=== PATIENT | female | born 1965 | race Caucasian/White ===

== ENCOUNTER → 2017-08-28 07:21 | Outpatient (CLI) | payer OTHER, SELFPAY ==
[2017-08-28 10:36] LABS: Vitamin D,25 Hydroxy 35.6 ng/mL (19.95-100.01)
[2017-08-28 10:38] LABS: ALB/GLOB Ratio 1.1 RATIO (0.9-2.4); AST(SGOT) 25 U/L (15-37); Alanine Aminotransfer ALT/SGPT 30 U/L (13-56); Albumin, Serum 3.9 g/dL (3.2-5.0); Alkaline Phosphatase 69 U/L (45-117); Anion Gap 9 (5-15); BUN 23 mg/dL (7-18); BUN/Creat Ratio 26.8 RATIO (10-20); Calcium,Total 8.8 mg/dL (8.5-10.1); Chloride 104 mmol/L (98-107); Cholesterol 209 mg/dL (200); Creatinine, Serum 0.86 mg/dL (0.55-1.02); EST Glomerular Filtration Rate 74 mL/min (>60); Est Glom Filt Rate - Afr Amer 89 mL/min (>60); Globulin 3.7 g/dL (2.2-4.2); Glucose 82 mg/dL (74-106); High Density Lipoprotein 112 mg/dL; Potassium 4.1 mmol/L (3.5-5.1); Protein, Total 7.6 g/dL (6.4-8.2); Sodium Level 139 mmol/L (136-145); Triglycerides 28 mg/dL; Very Low Density Lipoprotein 6 mg/dL (5-40)
== END ==
PROVIDERS: Family Provider Internal Medicine; PCP Internal Medicine; Visit Provider Internal Medicine
DX: E55.9 Vitamin D deficiency, unspecified (principal); Z51.81 Encounter for therapeutic drug level monitoring; Z13.220 Encounter for screening for lipoid disorders
CPT/HCPCS: 36415; 80053; 80061; 82306

== ENCOUNTER → 2017-09-10 12:30 | Outpatient (CLI) | payer OTHER, SELFPAY ==
--- NOTE | 2017-09-10 12:34 | HPBD_ITS ---
STUDY: DUAL ENERGY X-RAY ABSORPTIOMETRY / DXA REASON FOR EXAM: Female, 52 years old. The patient is postmenopausal. No loss of height. TECHNIQUE: Bone Mineral Density (BMD) measurements of lumbar spine and bilateral hips were obtained. COMPARISON: Comparison is made with prior study dated September 29, 2014. FINDINGS: Lumbar Spine (L1-L4): g/cm2 (1.164) / T-score (-0.1) / Z-score (0.5) Findings are suggestive of normal bone density with a low fracture risk. Left Femur Total: g/cm2 (0.978) / T-score (-0.2) / Z-score (0.3) Left Femoral Neck: g/cm2 (0.987) / T-score (-0.4) / Z-score (0.5) Right Femur Total: g/cm2 (1.012) / T-score (0.0) / Z-score (0.6) Right Femoral Neck: g/cm2 (1.014) / T-score (-0.2) / Z-score (0.7) The T-Scores on the most recent prior examination were: Lumbar Spine (L1-L4): There has been worsening of bone density since the previous examination. Left Femur Total: which represents a worsening of 0.5%. Right Femur Total: which represents a worsening of 2.2%. HPBD/Dexa Bone Density Study (HP) IMPRESSION: The patient is considered normal as outlined below according to World Bhanu Organization (WHO) criteria with a low fracture risk. There has been worsening of bone density since the previous examination. Reference Information: The T-score is the number of standard deviations above or below the standard which is normal for young adults at their peak bone mineral density. The World Health Organization (WHO) interprets the T-scores as follows: Above -1 Normal bone density Between -1 and -2.5 Osteopenia Equal to / or below -2.5 Osteoporosis As a practical clinical guideline, osteopenia may be graded as follows: Mild -1 through -1.5 Moderate -1.6 through -2.0 Severe -2.1 through -2.4 The Z-score is the number of standard deviations above or below age-matched controls. A Z-score of less than -1.5 would be considered abnormal. References: 1. NIH Osteoporosis and Related Bone Diseases http://www.osteo.org 2. International Society for Clinical Densitometry http://www.iscd.org 3. National Osteoporosis Foundation http://www.nof.org Electronically Signed: Juan Jose Baker MD at 13:36 EST Tel [phone], Service support ,
== END ==
PROVIDERS: Family Provider Internal Medicine; PCP Internal Medicine; Visit Provider Internal Medicine
DX: Z78.0 Asymptomatic menopausal state (principal)
CPT/HCPCS: 77080

== ENCOUNTER → 2017-11-22 08:56 | Outpatient (CLI) | payer OTHER, SELFPAY ==
--- NOTE | 2017-11-22 08:57 | VDLE_ITS ---
Reason For Study: pain/swelling RIGHT LEFT CFV is compressible, spontaneous, phasic, CFV is compressible, spontaneous, phasic, competent and demonstrates normal competent, and demonstrates normal augmentation. augmentation. FV is compressible, spontaneous, phasic, FV is compressible, spontaneous, phasic, competent and demonstrates normal competent and demonstrates normal augmentation. augmentation. POP V is compressible, spontaneous, phasic, POP V is compressible, spontaneous, phasic, competent and demonstrates normal competent and demonstrates normal augmentation. augmentation. T/P Trunk is compressible. T/P Trunk is compressible. PTV is compressible. PTV is compressible. RT PerV is compressible. LT PerV is compressible. SFJ is competent SFJ is competent. GSV is competent GSV is incompetent throughout with diameter SSV is competent. of .35 x .36 cm. Procedure SSV is competent. Exam performed in department. The exam was diagnostic. Interpretation Summary 1. Bilateral legs no DVt or SVT. 2. Left GSV reflux 3.6mm. Ordering Physician: Venancio Cr Referring Physician: Alanis Lantigua Performed By: Samantha Hogan, RDCS, RVT
== END ==
PROVIDERS: Family Provider Internal Medicine; PCP Internal Medicine; Visit Provider Surgery Vascular Surgery
DX: M79.604 Pain in right leg (principal); M79.605 Pain in left leg; M79.89 Other specified soft tissue disorders
CPT/HCPCS: 93970

== ENCOUNTER → 2017-12-27 15:49 | Outpatient (CLI) | payer OTHER, SELFPAY ==
--- NOTE | 2017-12-27 15:52 | RAD_ITS ---
STUDY: X-RAY - RIGHT HAND, ATTENTION RING FINGER REASON FOR EXAM: Female, 52 years old. Redness and swelling. No known injury. TECHNIQUE: 3 view(s) of the finger were obtained. COMPARISON: None. FINDINGS: Normal metacarpal head. Normal metacarpophalangeal joint. Normal proximal phalanx. Normal middle phalanx. Normal distal phalanx. Normal proximal interphalangeal joint. Normal distal interphalangeal joint. No significant soft tissue swelling. No radiopaque foreign bodies. No erosions. RAD/Finger(s) Min 2 Views IMPRESSION: Normal x-ray examination of the finger. Electronically Signed: Judah Maldonado MD at 8:17 EDT , Service support ,
== END ==
PROVIDERS: Family Provider Internal Medicine; PCP Internal Medicine; Visit Provider Internal Medicine
DX: M79.644 Pain in right finger(s) (principal)
CPT/HCPCS: 73140

== ENCOUNTER → 2018-01-10 08:13 | Outpatient (CLI) | payer OTHER, SELFPAY ==
--- NOTE | 2018-01-10 08:14 | BI_ITS ---
MAMMOGRAPHY - BILATERAL SCREENING REASON FOR EXAM: Female, 52 years old. Routine annual screening examination. PERTINENT HISTORY: Sister with breast cancer. Remote right stereotactic breast biopsy. TECHNIQUE: Digital bilateral breast hayde (3D mammographic acquisition) in the CC and MLO projections. 2-D mediolateral oblique (MLO) and craniocaudad (CC) views of both breasts were obtained. CAD: Full Field Digital Mammography with Computer Added Detection was performed. COMPARISON: Comparison is made with prior study dated November 06, 2016 and November 19, 2013. FINDINGS: Breast Composition: The breasts are extremely dense, which lowers the sensitivity of mammography. There are no dominant masses or suspicious calcifications. A tissue clip marker is once again seen in the axillary region of the right breast No other significant abnormalities are identified. There has been no significant change since the prior study. BI/SCREENING MAMM (CAD), BILAT IMPRESSION: Stable bilateral screening mammogram. Yearly follow-up mammogram recommended. (A) ASSESSMENT CATEGORY: BIRADS Category 2: Benign. A letter regarding these results will be sent to the patient by the facility within 30 days. Approximately 10% of breast cancers are not detected by mammography. A normal mammogram should not delay biopsy of a clinically suspicious abnormality. [id number] Electronically Signed: Juan Jose Baker MD at 10:07 EDT Tel [phone], Service support ,
== END ==
PROVIDERS: Family Provider Internal Medicine; PCP Internal Medicine; Visit Provider Internal Medicine
DX: Z12.31 Encounter for screening mammogram for malignant neoplasm of breast (principal)
CPT/HCPCS: 77063; 77067

== ENCOUNTER → 2018-04-08 08:05 | Outpatient (CLI) | payer OTHER, SELFPAY ==
[2018-04-08 08:36] LABS: Erythrocyte Sedimentation Rate 13 mm/hr (0-30)
[2018-04-08 09:13] LABS: ALB/GLOB Ratio 1.1 RATIO (0.9-2.4); AST(SGOT) 23 U/L (15-37); Alanine Aminotransfer ALT/SGPT 26 U/L (13-56); Albumin, Serum 4.1 g/dL (3.2-5.0); Alkaline Phosphatase 71 U/L (45-117); Anion Gap 10 (5-15); BUN 11 mg/dL (7-18); BUN/Creat Ratio 11.9 RATIO (10-20); CRP < 2.90 mg/L (0.0-3.0); Calcium,Total 9.4 mg/dL (8.5-10.1); Chloride 101 mmol/L (98-107); Cholesterol 211 mg/dL (200); Creatinine, Serum 0.92 mg/dL (0.55-1.02); EST Glomerular Filtration Rate 68 mL/min (>60); Est Glom Filt Rate - Afr Amer 82 mL/min (>60); Globulin 3.8 g/dL (2.2-4.2); Glucose 84 mg/dL (74-106); High Density Lipoprotein 130 mg/dL; Potassium 3.9 mmol/L (3.5-5.1); Protein, Total 7.9 g/dL (6.4-8.2); Sodium Level 140 mmol/L (136-145); Triglycerides 28 mg/dL; Very Low Density Lipoprotein 6 mg/dL (5-40)
== END ==
PROVIDERS: Family Provider Internal Medicine; PCP Internal Medicine; Referring Provider Internal Medicine; Visit Provider Internal Medicine
DX: R89.9 Unspecified abnormal finding in specimens from other organs, systems and tissues (principal)
CPT/HCPCS: 36415; 80053; 80061; 85652; 86140

== ENCOUNTER → 2018-10-30 07:53 | Outpatient (CLI) | payer OTHER, SELFPAY ==
--- NOTE | 2018-10-30 07:55 | US_ITS ---
STUDY: ULTRASOUND OF THE FEMALE PELVIS - COMPLETE REASON FOR EXAM: Female, 53 years old. Abdominal fullness on physical exam TECHNIQUE: Transabdominal and Transvaginal TECHNICAL QUALITY: Adequate. COMPARISON: None. FINDINGS: The uterus is retroverted and is in a midline position. The uterus measures 6.6 x 4.7 x 3.6 cm. There are small nabothian cysts within the cervix. The endometrium measures 2 mm in thickness, and is hyperechoic. There is no demonstrated endometrial mass. There is no demonstrated myometrial mass. No I.U.D. - The right ovary is visualized. The right ovary measures 2.5 x 2.1 x 1.2 cm. There is no right ovarian cyst or ovarian mass. Normal-appearing follicles. No adnexal mass. There is normal arterial and normal venous vascularity. The left ovary is visualized. The left ovary measures 2.8 x 3.1 x 1.9 cm. There is no left ovarian cyst or ovarian mass. Normal appearing follicles. No adnexal mass. There is normal arterial and normal venous vascularity. There is a trace amount of free fluid in the pelvic cul-de-sac. The pre void volume of the bladder was 63 ml. Polycystic ovary disease: No. US/Transvaginal Non- IMPRESSION: No acute pelvic abnormality. Electronically Signed: Montana Clemente MD at 5:02 EDT Tel , Service support ,
== END ==
PROVIDERS: Family Provider Internal Medicine; PCP Internal Medicine; Referring Provider Obstetrics & Gynecology Gynecology; Visit Provider Obstetrics & Gynecology Gynecology
DX: R19.03 Right lower quadrant abdominal swelling, mass and lump (principal)
CPT/HCPCS: 76830

== ENCOUNTER 2018-12-11 13:29 | Outpatient (RCR) | payer SELFPAY ==
--- NOTE | 2019-04-24 08:03 | HP.PT.NRP ---
HP - Discharge Summary (1) - Patient Information GUME AGEE was seen in my office for initial evaluation on . The following Plan of Care was established for this patient: This patient was last seen in our office . Pertinent comments regarding their Physical therapy will appear below: Dry Needling appropriate to d/c. At this point I will be discontinuing this patient from physical therapy. I would be happy to see this patient again in the future if found appropriate by the physician. Thank you! EARNEST CadenaT
== END 2018-12-11 19:00 | disposition home or self-care (01) ==
LOC: PT 13:29
PROVIDERS: Family Provider Internal Medicine; PCP Internal Medicine
DX: R69 Illness, unspecified (principal)

== ENCOUNTER → 2019-01-12 09:59 | Outpatient (CLI) | payer OTHER, SELFPAY ==
--- NOTE | 2019-01-12 10:01 | BI_ITS ---
MAMMOGRAPHY - BILATERAL SCREENING REASON FOR EXAM: Female, 53 years old. Routine annual screening examination. PERTINENT HISTORY: Sister with breast cancer. Remote right stereotactic breast biopsy. TECHNIQUE: Digital bilateral breast leisa (3D mammographic acquisition) in the CC and MLO projections. 2-D mediolateral oblique (MLO) and craniocaudad (CC) views of both breasts were obtained. CAD: Full Field Digital Mammography with Computer Added Detection was performed. COMPARISON: Comparison is made with prior examination dated January 10, 2018 and November 06, 2016. FINDINGS: Breast Composition: The breasts are extremely dense, which lowers the sensitivity of mammography. There are no dominant masses or suspicious calcifications. A tissue clip marker is once again seen in the deep upper lateral aspect of the right breast. No other significant abnormalities are identified. There has been no significant change since the prior study. BI/SCREEN MAMM (CAD) W/LEISA BILAT IMPRESSION: Stable bilateral screening mammogram. Yearly follow-up mammogram recommended. (A) ASSESSMENT CATEGORY: BIRADS Category 2: Benign. A letter regarding these results will be sent to the patient by the facility within 30 days. Approximately 10% of breast cancers are not detected by mammography. A normal mammogram should not delay biopsy of a clinically suspicious abnormality. [id number] Electronically Signed: Juan Jose Baker, at 13:59 EDT , Service support ,
== END ==
PROVIDERS: Family Provider Internal Medicine; PCP Internal Medicine; Referring Provider Internal Medicine; Visit Provider Internal Medicine
DX: Z12.31 Encounter for screening mammogram for malignant neoplasm of breast (principal); Z80.3 Family history of malignant neoplasm of breast
CPT/HCPCS: 77063; 77067

== ENCOUNTER → 2019-02-03 09:52 | Outpatient (CLI) | payer OTHER, SELFPAY ==
[2019-02-03 12:26] LABS: Absolute Lymphocyte Count 1.39 X10^3/uL (0.83-4.51); Absolute Neutrophil Count 2.8 X10^3/uL (2.0-7.7); Basophil# 0.06 X10^3/uL; Basophil% 1.3 % (0-1); Eosinophil# 0.04 X10^3/uL; Eosinophils% 0.9 % (0-5); Hemoglobin 13.6 g/dL (12.0-15.0); Lymphocyte # 1.39 X10^3/ul (4.0); Lymphocyte % 29.8 % (19-41); Mean Corp Hgb Conc 32.4 g/dL (32-36); Mean Corpuscular Hgb 31.2 pg (27.0-32.0); Mean Corpuscular Volume 96.3 fL (81-99); Mean Platelet Vol. 10.9 fl (6.2-12.0); Monocyte# 0.36 X10^3/uL; Monocyte% 7.7 % (0-10); NRBC Flagged by Analyzer 0 % (0-5); Neutrophil % 60.1 % (47-70); Platelet Count 327 K/mm3 (150-450); RBC Distribution Width CV 12.2 % (11.6-14.6); RBC Distribution Width SD 43.7 fl (35.1-43.9); Red Blood Count 4.36 M/mm3 (4.2-5.4); White Blood Count 4.7 K/mm3 (4.4-11.0)
[2019-02-03 12:38] LABS: Erythrocyte Sedimentation Rate 16 mm/hr (0-30)
[2019-02-03 12:45] LABS: BUN 11 mg/dL (7-18); Glucose 78 mg/dL (74-106)
[2019-02-03 12:46] LABS: ALB/GLOB Ratio 1.2 RATIO (0.9-2.4); AST(SGOT) 22 U/L (15-37); Alanine Aminotransfer ALT/SGPT 30 U/L (13-56); Albumin, Serum 4.4 g/dL (3.2-5.0); Alkaline Phosphatase 86 U/L (45-117); Anion Gap 7 (5-15); BUN/Creat Ratio 13.7 RATIO (10-20); CRP < 2.90 mg/L (0.0-3.0); Calcium,Total 9.5 mg/dL (8.5-10.1); Chloride 104 mmol/L (98-107); EST Glomerular Filtration Rate 79 mL/min (>60); Est Glom Filt Rate - Afr Amer 96 mL/min (>60); Globulin 3.8 g/dL (2.2-4.2); Potassium 3.8 mmol/L (3.5-5.1); Protein, Total 8.2 g/dL (6.4-8.2); Rheumatoid Factor < 10.0 IU/mL (<15); Sodium Level 141 mmol/L (136-145)
[2019-02-03 13:30] LABS: Hepatitis B Surface Antibody Non-Reactive; Hepatitis B Surface Antigen Non-Reactive (Nonreactive); Hepatitis C Antibody Non-Reactive (Nonreactive)
[2019-02-05 15:01] LABS: CCP IgG Antibodies 18 units (0-19); Hepatitis B Core AB IgM Negative (Negative)
[2019-02-05 16:07] LABS: CHOLESTEROL TOTAL 236 mg/dL (100-199); HDL-C 125 mg/dL (>39); HDL-P TOTAL 43.2 umol/L (>=30.5); SJOGREN'S Anti-SS-A test < 0.2 AI (0.0-0.9); SJOGREN'S Anti-SS-B test < 0.2 AI (0.0-0.9); SMALL LDL-P <90 nmol/L (<=527); TRIGLYCERIDES 58 mg/dL (0-149); Vitamin D 1,25-Dihydroxy 78.6 pg/mL (19.9-79.3)
[2019-02-06 11:14] LABS: ANTINUCLEAR ANTIBODIES DIRECT Negative (Negative); INSULIN RESISTANCE SCORE <25 (<=45); LDL SIZE 21.3 nm (>20.5); LDL-C 99 mg/dL (0-99); LDL-P 784 nmol/L (<1000)
== END ==
PROVIDERS: Family Provider Internal Medicine; PCP Internal Medicine; Referring Provider Internal Medicine Rheumatology; Visit Provider Internal Medicine Rheumatology
DX: M06.4 Inflammatory polyarthropathy (principal); L70.0 Acne vulgaris; C44.99 Other specified malignant neoplasm of skin, unspecified
CPT/HCPCS: 36415; 80053; 80061; 82652; 83704; 85025; 85652; 86038; 86140; 86200; 86235; 86431; 86705; 86706; 86803; 87340

== ENCOUNTER → 2019-06-17 15:12 | Outpatient (CLI) | payer OTHER, SELFPAY ==
--- NOTE | 2019-06-17 15:24 | RAD_ITS ---
STUDY: X-RAY - UNILATERAL RIBS ( LEFT ) REASON FOR EXAM: Female, 53 years old. Rib pain times several months TECHNIQUE: 2 view(s) of the ribs. COMPARISON: None. FINDINGS: There is a healing nondisplaced fracture of the anterior left eighth rib. The visualized lung is clear and expanded. RAD/Ribs Unil 2V No CXR IMPRESSION: Healing nondisplaced fracture of the anterior left eighth rib. Electronically Signed: Manjit Barcenas MD at 16:14 EST , Service support ,
== END ==
PROVIDERS: Family Provider Internal Medicine; PCP Internal Medicine; Referring Provider Nurse Practitioner; Visit Provider Nurse Practitioner
DX: R07.81 Pleurodynia (principal)
CPT/HCPCS: 71100

== ENCOUNTER → 2019-09-04 15:37 | Outpatient (CLI) | payer OTHER, SELFPAY ==
[2019-03-28 09:24] VITALS: BMI 19.5
[2019-09-04 17:26] LABS: Absolute Lymphocyte Count 1.12 X10^3/uL (0.83-4.51); Absolute Neutrophil Count 5.3 X10^3/uL (2.0-7.7); Basophil# 0.05 X10^3/uL; Basophil% 0.7 % (0-1); Eosinophil# 0.19 X10^3/uL; Eosinophils% 2.6 % (0-5); Hemoglobin 12.9 g/dL (12.0-15.0); Lymphocyte # 1.12 X10^3/ul (4.0); Lymphocyte % 15.6 % (19-41); Mean Corp Hgb Conc 32.3 g/dL (32-36); Mean Corpuscular Hgb 30.9 pg (27.0-32.0); Mean Corpuscular Volume 95.9 fL (81-99); Mean Platelet Vol. 10.2 fl (6.2-12.0); Monocyte# 0.52 X10^3/uL; Monocyte% 7.2 % (0-10); NRBC Flagged by Analyzer 0 % (0-5); Neutrophil # 5.29 X10^3/uL (2.7-7.7); Neutrophil % 73.5 % (47-70); Platelet Count 365 K/mm3 (150-450); RBC Distribution Width CV 12.5 % (11.6-14.6); RBC Distribution Width SD 44.5 fl (35.1-43.9); Red Blood Count 4.17 M/mm3 (4.2-5.4); White Blood Count 7.2 K/mm3 (4.4-11.0)
[2019-09-04 17:44] LABS: ALB/GLOB Ratio 1.2 RATIO (0.9-2.4); AST(SGOT) 34 U/L (15-37); Alanine Aminotransfer ALT/SGPT 38 U/L (13-56); Albumin, Serum 4.3 g/dL (3.2-5.0); Alkaline Phosphatase 101 U/L (45-117); Anion Gap 6 (5-15); BUN 15 mg/dL (7-18); BUN/Creat Ratio 18.1 RATIO (10-20); CRP 5.33 mg/L (0.0-3.0); Calcium,Total 9.6 mg/dL (8.5-10.1); Chloride 102 mmol/L (98-107); Creatinine, Serum 0.83 mg/dL (0.55-1.02); EST Glomerular Filtration Rate 76 mL/min (>60); Est Glom Filt Rate - Afr Amer 93 mL/min (>60); Globulin 3.7 g/dL (2.2-4.2); Glucose 80 mg/dL (74-106); Potassium 3.9 mmol/L (3.5-5.1); Sodium Level 138 mmol/L (136-145)
[2019-09-04 17:59] LABS: Erythrocyte Sedimentation Rate 9 mm/hr (0-30)
== END ==
PROVIDERS: PCP Internal Medicine; Referring Provider Internal Medicine Rheumatology; Visit Provider Internal Medicine Rheumatology
DX: M06.4 Inflammatory polyarthropathy (principal); L70.0 Acne vulgaris; C44.99 Other specified malignant neoplasm of skin, unspecified
CPT/HCPCS: 36415; 80053; 85025; 85652; 86140

== ENCOUNTER → 2019-12-14 09:29 | Outpatient (CLI) | payer OTHER, SELFPAY ==
[2019-03-28 09:24] VITALS: BMI 19.5
--- NOTE | 2019-12-14 09:32 | BI_ITS ---
MAMMOGRAPHY - BILATERAL DIAGNOSTIC REASON FOR EXAM: Female, 54 years old. Six-week history of right upper quadrant breast pain. PERTINENT HISTORY: Sister with breast cancer. Prior right stereotactic breast biopsy. TECHNIQUE: Digital bilateral breast hayde (3D mammographic acquisition) in the CC and MLO projections. 2-D mediolateral oblique (MLO) and craniocaudad (CC) views of both breasts were obtained. CAD: Full Field Digital Mammography with Computer Added Detection was performed. COMPARISON: Comparison is made with prior examination of January 12, 2019 and January 10, 2018. FINDINGS: Breast Composition: The breasts are extremely dense, which lowers the sensitivity of mammography. There are no dominant masses or suspicious calcifications. A tissue clip marker is once again seen within a tiny nodular density in the deep axillary region of the right breast. No other significant abnormalities are identified. There has been no significant change since the prior study. BI/DIAG MAMM W/CAD, BILAT IMPRESSION: Stable bilateral diagnostic mammogram. One year follow-up recommended. (A) ASSESSMENT CATEGORY: BIRADS Category 2: Benign. A letter regarding these results will be sent to the patient by the facility within 30 days. Approximately 10% of breast cancers are not detected by mammography. A normal mammogram should not delay biopsy of a clinically suspicious abnormality. Electronically Signed: Juan Jose Baker, at 10:26 EDT , Service support ,
--- NOTE | 2019-12-14 09:59 | US_ITS ---
STUDY: ULTRASOUND BREAST - RIGHT REASON FOR EXAM: Female, 54 years old. Pain in the right breast. TECHNIQUE: Axial and longitudinal images of the RIGHT breast were performed with a high resolution ultrasound transducer. # OF IMAGES: 27 COMPARISON: Comparison is made with prior mammogram done earlier in the day as well as prior ultrasound of the right breast dated September 24, 2011. FINDINGS: RIGHT Breast: There is a 9 mm x 9 mm x 4 mm well-defined hypoechoic solid nodule at the 10:00 position of the breast in 6 cm from the nipple. This has decreased in size as compared to prior study. US/Breast Limited Unilateral IMPRESSION: 9 mm x 9 mm x 4 mm well-defined hypoechoic solid nodule at the 10:00 position the breast is 6 cm from the nipple. Prior biopsy of this nodule was performed. ASSESSMENT CATEGORY: BIRADS Category 2: Benign. A letter regarding these results will be sent to the patient by the facility within 30 days. Electronically Signed: Juan Jose Baker, at 12:26 EDT , Service support ,
== END ==
PROVIDERS: PCP Internal Medicine; Referring Provider Obstetrics & Gynecology Gynecology; Visit Provider Obstetrics & Gynecology Gynecology
DX: Z12.31 Encounter for screening mammogram for malignant neoplasm of breast (principal); N64.9 Disorder of breast, unspecified; Z80.3 Family history of malignant neoplasm of breast
CPT/HCPCS: 76642; 77062; 77066; G0279

== ENCOUNTER → 2020-02-24 08:16 | Outpatient (CLI) | payer OTHER, SELFPAY ==
[2020-01-30 12:26] VITALS: BMI 19.5
[2020-02-24 10:07] LABS: Absolute Lymphocyte Count 1.21 X10^3/uL (0.83-4.51); Absolute Neutrophil Count 2.8 X10^3/uL (2.0-7.7); Basophil# 0.05 X10^3/uL; Basophil% 1.1 % (0-1); Eosinophil# 0.07 X10^3/uL; Eosinophils% 1.6 % (0-5); Hematocrit 38.6 % (37-47); Hemoglobin 12.4 g/dL (12.0-15.0); Lymphocyte # 1.21 X10^3/ul (4.0); Mean Corp Hgb Conc 32.1 g/dL (32-36); Mean Corpuscular Hgb 31.2 pg (27.0-32.0); Mean Platelet Vol. 9.6 fl (6.2-12.0); Monocyte# 0.36 X10^3/uL; NRBC Flagged by Analyzer 0 % (0-5); Neutrophil # 2.78 X10^3/uL (2.7-7.7); Neutrophil % 62.1 % (47-70); Platelet Count 371 K/mm3 (150-450); RBC Distribution Width CV 12.3 % (11.6-14.6); RBC Distribution Width SD 43.8 fl (35.1-43.9); Red Blood Count 3.98 M/mm3 (4.2-5.4); White Blood Count 4.5 K/mm3 (4.4-11.0)
[2020-02-24 10:36] LABS: Vitamin D,25 Hydroxy 54.8 ng/mL
[2020-02-24 10:44] LABS: ALB/GLOB Ratio 1.2 RATIO (0.9-2.4); AST(SGOT) 29 U/L (15-37); Alanine Aminotransfer ALT/SGPT 35 U/L (13-56); Albumin, Serum 4.1 g/dL (3.2-5.0); Alkaline Phosphatase 75 U/L (45-117); Anion Gap 5 (5-15); BUN 12 mg/dL (7-18); BUN/Creat Ratio 15.7 RATIO (10-20); CRP 3.03 mg/L (0.0-3.0); Calcium,Total 9.4 mg/dL (8.5-10.1); Chloride 104 mmol/L (98-107); Creatinine, Serum 0.76 mg/dL (0.55-1.02); EST Glomerular Filtration Rate 84 mL/min (>60); Est Glom Filt Rate - Afr Amer 101 mL/min (>60); Globulin 3.5 g/dL (2.2-4.2); Glucose 83 mg/dL (74-106); Potassium 3.9 mmol/L (3.5-5.1); Protein, Total 7.6 g/dL (6.4-8.2); Sodium Level 140 mmol/L (136-145)
== END ==
PROVIDERS: PCP Internal Medicine; Referring Provider Internal Medicine Rheumatology; Visit Provider Internal Medicine Rheumatology
DX: M06.4 Inflammatory polyarthropathy (principal); L70.0 Acne vulgaris; C44.99 Other specified malignant neoplasm of skin, unspecified
CPT/HCPCS: 36415; 80053; 82306; 85025; 86140

== ENCOUNTER → 2020-03-16 15:24 | Outpatient (CLI) | payer OTHER, SELFPAY ==
[2020-01-30 12:26] VITALS: BMI 19.5
--- NOTE | 2020-03-16 | FLU_PTH ---
PATIENT: GUME AGEE [facility] U#:[id number] AGE/SX: 59/F ROOM: RE03/16/[address]: Dr. Sofia Cochran MD : 1965 BED: DIS: SPEC #: [id number] RECD: 03/17/20 12:31 STATUS: THALIA SUMIT #: [id number] MARISOL: 03/16/20 00:[address]: Sofia Cochran DEPT: CYTOLOGY RECD BY: Jesus Lopez ENTERED: 03/17/20 12:32 SP TYPE: Fluid OTHR DR: Dr. Alanis Lantigua, Tissues: Urine Procedures: Special Stain Group II Cytospin Fluid HEADER OPERATION: Not noted PRE-OP DIAGNOSIS: Gross hematuria TISSUE SUBMITTED: Urine for cytology DIAGNOSIS CYTOLOGY Urine for cytology (cytospin): Negative for malignant cells. Virtually acellular specimen. AM:helio 03/18/20 CYTOLOGY STUDY Slides are reviewed. CYTOLOGY GROSS Received is 5 ml of light yellow hazy fluid labeled with the patient's name and and designated per the requisition as urine. Submitted for cytology preparation. / helio 03/17/20 TC:5 CPT: 71975
[2020-03-16 15:39] LABS: Cytology, Body Fluid / CSF SEE PATHOLOGY REPORT
== END ==
PROVIDERS: PCP Internal Medicine; Referring Provider Urology; Visit Provider Urology
DX: R31.0 Gross hematuria (principal)
CPT/HCPCS: 88108; 88313

== ENCOUNTER → 2020-03-18 17:43 | Outpatient (CLI) | payer OTHER, SELFPAY ==
[2020-01-30 12:26] VITALS: BMI 19.5
--- NOTE | 2020-03-18 17:47 | CT_ITS ---
STUDY: CT ABDOMEN AND PELVIS WITH AND WITHOUT CONTRAST REASON FOR EXAM: Female, 54 years old. 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 IV 100mL Isovue-370 was administered. Sagittal and coronal images were reconstructed. Individualized dose optimization techniques were used for this CT. COMPARISON: Dec 07 2012 FINDINGS: The visualized lung bases are unremarkable. The visualized portions of the heart are within normal limits. Normal liver. Normal gallbladder and extrahepatic biliary system. Normal spleen. Normal pancreas. Normal bilateral adrenal glands. Normal right kidney. Normal left kidney. Normal visualized stomach. Normal small intestine. Normal colon. The appendix is visualized and appears normal. Normal abdominal aorta. Normal inferior vena cava. Normal retroperitoneum. Normal urinary bladder. There are moderately extensive bilateral pelvic adnexal varices. Normal abdominal wall. Normal osseous structures. CT/CT Abd/Pelvis W/WO Contrast IMPRESSION: 1. Normal urinary system. 2. Pelvic venous varices. Electronically Signed: Tesfaye Porras, at 18:39 EDT Tel , Service support ,
== END ==
PROVIDERS: PCP Internal Medicine; Visit Provider Urology
DX: R31.0 Gross hematuria (principal); R10.9 Unspecified abdominal pain
CPT/HCPCS: 74178; Q9967

== ENCOUNTER 2020-09-30 08:00 | Outpatient (RCR) | payer OTHER, SELFPAY ==
[2020-01-30 12:26] VITALS: BMI 19.5
[2020-09-30] MEDS: COVID-19 VACC, MRNA(PFIZER)/PF 30 MCG/0.3 ML SYRINGE IM (15:22)
[2020-10-21] MEDS: COVID-19 VACC, MRNA(PFIZER)/PF 30 MCG/0.3 ML SYRINGE IM (14:33)
== END 2020-09-30 23:59 ==
LOC: IMMUN 08:00
PROVIDERS: PCP Internal Medicine; Visit Provider Family Medicine
DX: Z23 Encounter for immunization (principal)
CPT/HCPCS: 0001A; 0002A; 91300

== ENCOUNTER → 2020-12-19 12:40 | Outpatient (CLI) | payer OTHER, SELFPAY ==
[2020-01-30 12:26] VITALS: BMI 19.5
--- NOTE | 2020-12-19 12:43 | BI_ITS ---
MAMMOGRAPHY - BILATERAL SCREENING REASON FOR EXAM: Female, 55 years old. Routine annual screening examination. PERTINENT HISTORY: Sister with breast cancer. Prior right stereotactic breast biopsy. TECHNIQUE: Digital bilateral breast leisa (3D mammographic acquisition) in the CC and MLO projections. 2-D mediolateral oblique (MLO) and craniocaudad (CC) views of both breasts were obtained. CAD: Full Field Digital Mammography with Computer Added Detection was performed. COMPARISON: Comparison is made with prior examination dated 01/12/2019 and 12/14/2019 FINDINGS: Breast Composition: The breasts are extremely dense, which lowers the sensitivity of mammography. There are no dominant masses or suspicious calcifications. A tissue clip marker is seen in the upper deep lateral aspect of the right breast. No other significant abnormalities are identified. There has been no significant change since the prior study. BI/SCRN MAMM (CAD)W/LEISA BILAT IMPRESSION: Stable bilateral screening mammogram. Yearly follow-up mammogram recommended. (A) ASSESSMENT CATEGORY: BIRADS Category 2: Benign. A letter regarding these results will be sent to the patient by the facility within 30 days. Approximately 10% of breast cancers are not detected by mammography. A normal mammogram should not delay biopsy of a clinically suspicious abnormality. [id number] Electronically Signed: Juan Jose Baker MD at 13:49 EDT , Service support ,
== END ==
PROVIDERS: PCP Internal Medicine; Referring Provider Obstetrics & Gynecology Gynecology; Visit Provider Obstetrics & Gynecology Gynecology
DX: Z12.31 Encounter for screening mammogram for malignant neoplasm of breast (principal)
CPT/HCPCS: 77063; 77067

== ENCOUNTER → 2021-01-12 11:23 | Outpatient (CLI) | payer OTHER, SELFPAY ==
[2020-01-30 12:26] VITALS: BMI 19.5
--- NOTE | 2021-01-12 11:25 | US_ITS ---
STUDY: ULTRASOUND OF THE FEMALE PELVIS - COMPLETE REASON FOR EXAM: Female, 55 years old. POST MEN BLEEDING LMP: Patient is postmenopausal. TECHNIQUE: Transabdominal and Transvaginal TECHNICAL QUALITY: Adequate. COMPARISON: Comparison is made with prior examination dated 10/30/2018. FINDINGS: The uterus is anteverted and is in a midline position. The uterus measures 7.5 cm x 4 cm x 3.4 cm. There is a Nabothian cyst of the cervix. The endometrium measures 3.1 mm in thickness, and is hyperechoic. There is no demonstrated endometrial mass. The uterus is of heterogeneous echotexture. No focal fibroid is seen. I.U.D. - The patient does not have an I.U.D. The right ovary is visualized. The right ovary measures 2.4 cm x 1.6 cm x 1.3 cm. Small follicles are seen within the ovary. There is no visualized right adnexal mass or complex lesion. There is normal arterial and normal venous vascularity. The left ovary is visualized. The left ovary measures 2 cm x 1.1 cm x 1.4 cm. There is no left ovarian cyst or ovarian mass. There is no visualized left adnexal mass or complex lesion. There is normal arterial and normal venous vascularity. There is minimal fluid in the cul-de-sac. The pre void volume of the bladder was 714 ml. US/Pelvic (Non ) IMPRESSION: Heterogeneous appearance of the uterus although no focal fibroid is seen. Electronically Signed: Juan Jose Baker MD at 15:08 EDT , Service support ,
--- NOTE | 2021-01-12 11:25 | US_ITS ---
STUDY: ULTRASOUND OF THE FEMALE PELVIS - COMPLETE REASON FOR EXAM: Female, 55 years old. POST MEN BLEEDING LMP: Patient is postmenopausal. TECHNIQUE: Transabdominal and Transvaginal TECHNICAL QUALITY: Adequate. COMPARISON: Comparison is made with prior examination dated 10/30/2018. FINDINGS: The uterus is anteverted and is in a midline position. The uterus measures 7.5 cm x 4 cm x 3.4 cm. There is a Nabothian cyst of the cervix. The endometrium measures 3.1 mm in thickness, and is hyperechoic. There is no demonstrated endometrial mass. The uterus is of heterogeneous echotexture. No focal fibroid is seen. I.U.D. - The patient does not have an I.U.D. The right ovary is visualized. The right ovary measures 2.4 cm x 1.6 cm x 1.3 cm. Small follicles are seen within the ovary. There is no visualized right adnexal mass or complex lesion. There is normal arterial and normal venous vascularity. The left ovary is visualized. The left ovary measures 2 cm x 1.1 cm x 1.4 cm. There is no left ovarian cyst or ovarian mass. There is no visualized left adnexal mass or complex lesion. There is normal arterial and normal venous vascularity. There is minimal fluid in the cul-de-sac. The pre void volume of the bladder was 714 ml. US/Transvaginal Non- IMPRESSION: Heterogeneous appearance of the uterus although no focal fibroid is seen. Electronically Signed: Juan Jose Baker MD at 15:08 EDT , Service support ,
--- NOTE | 2021-01-12 11:46 | MRI_ITS ---
STUDY: BILATERAL BREAST MR WITHOUT AND WITH CONTRAST REASON FOR EXAM: Female, 55 years old. Dense breast tissue. History of sister with breast cancer. History of prior right stereotactic breast biopsy. TECHNIQUE: Multi-sequence multi-echo imaging of both breasts was performed with a dedicated breast coil. T1-weighted and T2-weighted images were performed before the administration of contrast. T1-weighted images were also performed after the administration of Dotarem 10ml IV without complications. COMPARISON: 12/19/2020, 12/14/2019. FINDINGS: RIGHT BREAST: The breast tissue is heterogeneously dense with minimal background enhancement. There are no abnormal enhancing masses or areas of non-mass enhancement in the right breast. LEFT BREAST: The breast tissue is heterogeneously dense with minimal background enhancement. There are no abnormal enhancing masses or areas of non-mass enhancement in the left breast. There are no enlarged or abnormal lymph nodes. There is no abnormality in the visualized regions of the chest or liver. MRI/Breast Bilateral W/O and W IMPRESSION: No abnormality on the breast MRI examination with contrast. Annual screening mammogram recommended. CATEGORY: BIRADS Category 1: Negative. A letter regarding these results will be sent to the patient by the facility within 30 days. Electronically Signed: Vishnu Franco MD at 10:10 EDT , Service support ,
== END ==
PROVIDERS: PCP Internal Medicine; Referring Provider Obstetrics & Gynecology Gynecology; Visit Provider Obstetrics & Gynecology Gynecology
DX: Z01.419 Encounter for gynecological examination (general) (routine) without abnormal findings (principal); N95.0 Postmenopausal bleeding; N60.99 Unspecified benign mammary dysplasia of unspecified breast; K92.2 Gastrointestinal hemorrhage, unspecified; Z80.3 Family history of malignant neoplasm of breast
CPT/HCPCS: 76830; 76856; 77049; A9575; A4216; C8908

== ENCOUNTER → 2021-05-03 | Outpatient (CLI) | payer OTHER, SELFPAY | END | disposition home or self-care (01) | LOC: LABSPEC 10:18 | PROVIDERS: PCP Internal Medicine; Referring Provider Physician Assistant; Visit Provider Physician Assistant | DX: Z11.52 Encounter for screening for COVID-19 (principal) | CPT/HCPCS: 87635; U0005; U0003 ==

== ENCOUNTER → 2021-05-24 12:58 | Outpatient (CLI) | payer OTHER, SELFPAY ==
--- NOTE | 2021-05-24 13:01 | RAD_ITS ---
STUDY: X-RAY CHEST REASON FOR EXAM: Female, 55 years old. ABNORMAL LUNG SOUNDS, COUGH TECHNIQUE: Frontal and lateral views COMPARISON: 04/11/2012. FINDINGS: The lungs are clear and expanded. There is no demonstrated pleural abnormality. Normal size heart. Normal mediastinum and roxann. Normal visualized pulmonary arteries. Normal visualized aortic arch and descending thoracic aorta. Normal visualized thoracic spine. Normal visualized ribs, clavicles, and shoulders. There is no demonstrated abnormality of the visualized soft tissue structures of the upper abdomen. RAD/Chest PA and Lateral IMPRESSION: Normal x-ray examination of the chest. Electronically Signed: Narayan Rose DO at 17:16 EST Tel [phone], Service support ,
== END ==
PROVIDERS: PCP Internal Medicine; Referring Provider Internal Medicine; Visit Provider Internal Medicine
DX: R09.89 Other specified symptoms and signs involving the circulatory and respiratory systems (principal)
CPT/HCPCS: 71046

== ENCOUNTER 2021-10-19 06:18 | Outpatient (CLI) | payer OTHER, SELFPAY ==
[2021-10-19 07:05] LABS: Absolute Lymphocyte Count 2.03 X10^3/uL (0.83-4.51); Absolute Neutrophil Count 2.4 X10^3/uL (2.0-7.7); Basophil# 0.07 X10^3/uL; Basophil% 1.3 % (0-1); Eosinophil# 0.28 X10^3/uL; Eosinophils% 5.3 % (0-5); Hematocrit 40.6 % (37-47); Hemoglobin 13.3 g/dL (12.0-15.0); Lymphocyte # 2.03 X10^3/ul (0.83-4.51); Lymphocyte % 38.2 % (19-41); Mean Corp Hgb Conc 32.8 g/dL (32-36); Mean Corpuscular Hgb 30.6 pg (27.0-32.0); Mean Corpuscular Volume 93.5 fL (81-99); Mean Platelet Vol. 9.6 fl (6.2-12.0); Monocyte# 0.57 X10^3/uL; Monocyte% 10.7 % (0-10); NRBC Flagged by Analyzer 0 % (0-5); Neutrophil # 2.35 X10^3/uL (2.7-7.7); Neutrophil % 44.3 % (47-70); Platelet Count 398 K/mm3 (150-450); RBC Distribution Width CV 12.6 % (11.6-14.6); RBC Distribution Width SD 43.5 fl (35.1-43.9); Red Blood Count 4.34 M/mm3 (4.2-5.4); White Blood Count 5.3 K/mm3 (4.4-11.0)
[2021-10-26 08:10] LABS: Immunoglobulin A 210 mg/dL (87-352); Immunoglobulin G 857 mg/dL (586-1602); Immunoglobulin M 87 mg/dL (26-217)
[2021-10-26 08:46] LABS: Immunoglobulin E 17 IU/mL (6-495)
== END 2021-10-19 23:59 | disposition home or self-care (01) ==
LOC: LAB 06:19
PROVIDERS: PCP Internal Medicine; Referring Provider Internal Medicine; Visit Provider Internal Medicine
DX: R05.9 Cough, unspecified (principal)
CPT/HCPCS: 36415; 82784; 82785; 85025

== ENCOUNTER → 2021-11-01 | Outpatient (CLI) | payer OTHER, SELFPAY ==
--- NOTE | 2021-11-01 12:27 | US_ITS ---
STUDY: ULTRASOUND OF THE FEMALE PELVIS - COMPLETE REASON FOR EXAM: Female, 56 years old. PELVIC PAIN-RIGHT- FOR 6-8 WEEKS -- HX OF D and amp;C 95,98 LMP: TECHNIQUE: TECHNICAL QUALITY: Adequate. COMPARISON: None. FINDINGS: The uterus is anteverted and is in a midline position. The uterus measures 6.48 cm. Normal uterine cervix. The endometrium measures 3.5 mm in thickness, and is homogenous.. There is no demonstrated endometrial mass. There is no demonstrated myometrial mass. I.U.D. - The patient does not have an I.U.D. The right ovary is visualized. The right ovary measures 2.36 x 1.37 cm. There is a right ovarian cyst measuring 1.09 cm. There is no visualized right adnexal mass or complex lesion. There is normal arterial and normal venous vascularity. The left ovary is visualized. The left ovary measures 2.02 x 0.85 cm. There is no left ovarian cyst or ovarian mass. There is no visualized left adnexal mass or complex lesion. There is normal arterial and normal venous vascularity. There is no fluid in the cul-de-sac. The pre void volume of the bladder was ml. The post void volume of the bladder was ml. Polycystic ovary disease: No. US/Pelvic (Non ) IMPRESSION: Normal female pelvis. Electronically Signed: Hadley Uribe MD at 1:58 EDT ,
--- NOTE | 2021-11-01 12:28 | US_ITS ---
STUDY: ULTRASOUND OF THE FEMALE PELVIS - COMPLETE REASON FOR EXAM: Female, 56 years old. PELVIC PAIN-RIGHT- FOR 6-8 WEEKS -- HX OF D and amp;C 95,98 LMP: TECHNIQUE: TECHNICAL QUALITY: Adequate. COMPARISON: None. FINDINGS: The uterus is anteverted and is in a midline position. The uterus measures 6.48 cm. Normal uterine cervix. The endometrium measures 3.5 mm in thickness, and is homogenous.. There is no demonstrated endometrial mass. There is no demonstrated myometrial mass. I.U.D. - The patient does not have an I.U.D. The right ovary is visualized. The right ovary measures 2.36 x 1.37 cm. There is a right ovarian cyst measuring 1.09 cm. There is no visualized right adnexal mass or complex lesion. There is normal arterial and normal venous vascularity. The left ovary is visualized. The left ovary measures 2.02 x 0.85 cm. There is no left ovarian cyst or ovarian mass. There is no visualized left adnexal mass or complex lesion. There is normal arterial and normal venous vascularity. There is no fluid in the cul-de-sac. The pre void volume of the bladder was ml. The post void volume of the bladder was ml. Polycystic ovary disease: No. US/Transvaginal Non- IMPRESSION: Normal female pelvis. Electronically Signed: Hadley Uribe MD at 1:58 EDT ,
== END | disposition home or self-care (01) ==
LOC: US 12:25
PROVIDERS: PCP Internal Medicine; Visit Provider Internal Medicine
DX: R10.2 Pelvic and perineal pain (principal)
CPT/HCPCS: 76830; 76856; 93976

== ENCOUNTER → 2021-11-04 | Outpatient (CLI) | payer OTHER, SELFPAY ==
[2021-11-04 08:00] LABS: Mucous, Urine 0 SEEN /hpf (<or=2+); Red Blood Cells-Urine 0 SEEN /hpf (0-5)
[2021-11-04 08:40] LABS: Color, Urine Amber (Yellow); Glucose, Dipstick Normal (Normal); Ketone-Dipstick Negative (Negative); Leukocyte Esterase-Dipstick 100 /ul (Negative); Microalbumin,Random Urine < 5.0 mg/L (NO RANGE EST.); Nitrite-Dipstick Negative (Negative); Occult Blood-Urine Negative /ul (Negative); Protein-Dipstick Negative (Negative); Urine Bilirubin Dipstick Negative (Negative); Urine Clarity Clear (Clear); Urine Urobilinogen Normal (Normal)
[2021-11-04 08:43] LABS: ALB/GLOB Ratio 1.1 RATIO (0.9-2.4); AST(SGOT) 22 U/L (15-37); Alanine Aminotransfer ALT/SGPT 24 U/L (13-56); Albumin, Serum 3.8 g/dL (3.2-5.0); Alkaline Phosphatase 75 U/L (45-117); Anion Gap 5 (5-15); BUN 12 mg/dL (7-18); BUN/Creat Ratio 16.9 RATIO (10-20); Calcium,Total 8.8 mg/dL (8.5-10.1); Chloride 107 mmol/L (98-107); Cholesterol 192 mg/dL (200); Creatinine, Serum 0.71 mg/dL (0.55-1.02); EST Glomerular Filtration Rate 90 mL/min (>60); Est Glom Filt Rate - Afr Amer 109 mL/min (>60); Globulin 3.4 g/dL (2.2-4.2); Glucose 84 mg/dL (74-106); High Density Lipoprotein 116 mg/dL; Protein, Total 7.2 g/dL (6.4-8.2); Sodium Level 140 mmol/L (136-145); Thyroid Stim Hormone (TSH) 1.66 uIU/mL (0.358-3.74); Triglycerides 35 mg/dL; Very Low Density Lipoprotein 7 mg/dL (5-40)
[2021-11-04 08:53] LABS: Bacteria RARE /hpf (None Seen); White Blood Cells 0-5 SEEN /hpf (0-5)
[2021-11-04 08:54] LABS: Squamous Epithelial Cells - UA 0-5 SEEN /hpf (5-10)
[2021-11-06 14:18] LABS: Vitamin D 1,25-Dihydroxy 60.5 pg/mL (19.9-79.3)
== END | disposition home or self-care (01) ==
LOC: LAB 07:55
PROVIDERS: PCP Internal Medicine; Referring Provider Internal Medicine; Visit Provider Internal Medicine
DX: I10 Essential (primary) hypertension (principal); E55.9 Vitamin D deficiency, unspecified
CPT/HCPCS: 36415; 80053; 80061; 81001; 82043; 82570; 82652; 84443

== ENCOUNTER → 2022-02-06 | Outpatient (CLI) | payer OTHER, SELFPAY ==
--- NOTE | 2022-02-06 12:43 | BI_ITS ---
MAMMOGRAPHY - BILATERAL SCREENING REASON FOR EXAM: Female, 56 years old. Routine annual screening examination. PERTINENT HISTORY: Sister with breast cancer. Prior right stereotactic breast biopsy. TECHNIQUE: Digital bilateral breast leisa (3D mammographic acquisition) in the CC and MLO projections. 2-D mediolateral oblique (MLO) and craniocaudad (CC) views of both breasts were obtained. CAD: Full Field Digital Mammography with Computer Added Detection was performed. COMPARISON: Comparison is made with prior study dated 12/19/2020 and 12/14/2019. FINDINGS: Breast Composition: The breasts are extremely dense, which lowers the sensitivity of mammography. There are no dominant masses or suspicious calcifications. A tissue clip marker is once again seen in the upper deep lateral aspect of the right breast. No other significant abnormalities are identified. There has been no significant change since the prior study. BI/SCRN MAMM (CAD)W/LEISA BILAT IMPRESSION: Stable bilateral screening mammogram. Yearly follow-up mammogram recommended. (A) ASSESSMENT CATEGORY: BIRADS Category 2: Benign. A letter regarding these results will be sent to the patient by the facility within 30 days. Approximately 10% of breast cancers are not detected by mammography. A normal mammogram should not delay biopsy of a clinically suspicious abnormality. [id number] Electronically Signed: Juan Jose Baker MD at 13:40 EDT ,
== END | disposition home or self-care (01) ==
LOC: OPBI 12:42
PROVIDERS: PCP Internal Medicine; Visit Provider Obstetrics & Gynecology Gynecology
DX: Z12.31 Encounter for screening mammogram for malignant neoplasm of breast (principal); Z80.3 Family history of malignant neoplasm of breast
CPT/HCPCS: 77063; 77067

== ENCOUNTER → 2022-03-14 | Outpatient (CLI) | payer OTHER, SELFPAY ==
--- NOTE | 2022-03-14 09:04 | BD_ITS ---
STUDY: DUAL ENERGY X-RAY ABSORPTIOMETRY / DXA REASON FOR EXAM: Female, 56 years old. [id number]. The patient is postmenopausal. TECHNIQUE: Bone Mineral Density (BMD) measurements of lumbar spine and bilateral hips were obtained. COMPARISON: Comparison is made with prior study dated 09/10/2017. FINDINGS: Lumbar Spine (L1-L4): g/cm2 (0.973) / T-score (-0.7) / Z-score (0.5) Findings are suggestive of normal bone density with a low fracture risk. Left Femur Total: g/cm2 (0.877) / T-score (-0.5) / Z-score (0.2) Left Femoral Neck: g/cm2 (0.769) / T-score (-0.7) / Z-score (0.4) Right Femur Total: g/cm2 (0.947) / T-score (0.0) / Z-score (0.8) Right Femoral Neck: g/cm2 (0.840) / T-score (-0.1) / Z-score (1.0) The T-Scores on the most recent prior examination were: Lumbar Spine (L1-L4): There has been worsening of bone density since the previous examination. Left Femur Total: which represents a worsening of 3.8%. Right Femur Total: which represents an improvement of 0.2%. BD/Dexa Bone Density Study IMPRESSION: The patient is considered normal as outlined below according to World Bhanu Organization (WHO) criteria with a low fracture risk. There has been worsening of bone density since the previous examination. Reference Information: The T-score is the number of standard deviations above or below the standard which is normal for young adults at their peak bone mineral density. The World Health Organization (WHO) interprets the T-scores as follows: Above -1 Normal bone density Between -1 and -2.5 Osteopenia Equal to / or below -2.5 Osteoporosis As a practical clinical guideline, osteopenia may be graded as follows: Mild -1 through -1.5 Moderate -1.6 through -2.0 Severe -2.1 through -2.4 The Z-score is the number of standard deviations above or below age-matched controls. A Z-score of less than -1.5 would be considered abnormal. References: 1. NIH Osteoporosis and Related Bone Diseases www osteo.org 2. International Society for Clinical Densitometry www iscd.org 3. National Osteoporosis Foundation www nof.org Electronically Signed: Juan Jose Baker MD at 12:20 EDT ,
== END | disposition home or self-care (01) ==
LOC: OPBD 08:59
PROVIDERS: PCP Internal Medicine; Visit Provider Internal Medicine
DX: Z78.0 Asymptomatic menopausal state (principal)
CPT/HCPCS: 77080

== ENCOUNTER 2022-04-25 15:42 | Emergency (ER) | payer OTHER, SELFPAY ==
[2022-04-25 15:43] VITALS: BP 144/95; PULSE 93; RESP 16; TEMP 36.2; O2SAT 100; BMI 20.5
[2022-04-25 16:17] VITALS: BP 143/97; PULSE 100; RESP 20; O2SAT 98
--- NOTE | 2022-04-25 16:17 | EDS_ITS ---
HPI History of Present Illness Chief Complaint: Back Informant: patient and spouse/S.O. Narrative Narrative: Patient presents with spasm around her right scapular area and lower left neck. She states she has a history of problems like this. She commonly has them in her lower back. She uses a tens unit frequently. This episode was exacerbated when she played a very hard match of tennis on Saturday. She had a lot of right- sided spasm around the shoulder and neck. She used her TENS unit and that helped. She also does a lot of sports activities, trampoline which she now has stopped using, and golf. Today she was feeling better from the right-sided spasm. She went and took care of her very young grandchild is only about 5 weeks old. She was holding the child and looking down. She now has spasm on the left side. No chest pain. No trouble breathing. No recent travel surgery or immobilization personal or family history of DVT or PE. No numbness tingling weakness. She states it hurts to move her up to spasm on its own. Most of it is above and medial to the scapula on the left. No distal symptoms. No radicular symptoms. She occasionally tries Motrin for this. Generally does not take meds. Of note, she has an allergy to codeine but states she has had pain meds since. That was decades ago and she does not think it is accurate. [facility] Medical History Abdominal pain Acute sinusitis, unspecified DFSP Encounter for screening for COVID-19 Home Medications calcium carbonate 600 mg calcium (1,500 mg) tablet 1,200 mg PO DAILY 04/19/16 [History Last Taken Unknown] cholecalciferol (vitamin D3) 25 mcg (1,000 unit) chewable tablet 2,000 unit PO DAILY 04/19/16 [History Last Taken Unknown] magnesium 250 mg tablet 500 mg PO DAILY 04/19/16 [History Last Taken Unknown] omega-3 fatty acids 1,000 mg capsule 1,000 mg PO DAILY 03/28/19 [History Last Taken Unknown] cyclobenzaprine 10 mg tablet 10 mg PO BID PRN muscle spasm #10 tabs 04/25/22 [Rx Last Taken Unknown] fexofenadine 60 mg tablet (Itzel Allergy) 60 mg PO DAILY 04/25/22 [History Last Taken Unknown] oxycodone-acetaminophen 5 mg-325 mg tablet (Percocet) 1 tab PO Q6H PRN pain 3 days #10 tabs 04/25/22 [Rx Last Taken Unknown] Allergy/AdvReac Type Severity Reaction Status Date / Time codeine AdvReac Rash Verified 04/25/22 16:13 Penicillins AdvReac Rash Verified 04/25/22 16:13 Surgical History History of neck surgery History of tonsillectomy and adenoidectomy Social History Smoking Status: Never smoker alcohol intake: current Alcohol type: wine ROS ROS ED Constitutional Constitutional ED: Denies chills or fever(s) Eyes Eyes: Denies change in vision ENT ENT ED: Denies rhinorrhea or sore throat Cardiovascular Cardiovascular: Denies chest pain, palpitations or racing heartbeat Respiratory/Chest Respiratory/Chest: Denies cough, dyspnea, dyspnea on exertion or sputum Gastrointestinal Gastrointestinal: Denies abdominal pain, nausea or vomiting Musculoskeletal Musculoskeletal: Reports myalgias, neck pain and other Details: See history of present illness peer Integumentary Denies Abrasions or rash Neurologic Neurologic: Denies headache(s), paresthesias or weakness Endocrine Endocrinology: Denies polydipsia or polyuria Allergic/Immunologic Allergic/Immunologic ED: Denies urticaria EXAM Physical Exam Const Vital Signs: 04/25/22 15:43 04/25/22 16:17 Temperature 97.2 F L Temperature Source Temporal Pulse Rate 93 100 Respiratory Rate 16 20 H Blood Pressure 144/95 H 143/97 H Blood Pressure Mean 111 112 Pulse Ox 100 98 Oxygen Delivery Method Room Air Room Air Positive well nourished and well developed General Appearance ED: well developed and NAD; Negative for cyanotic or diaphoretic HEENT Negative for trauma Eyes PERRL General Eye ED: Negative for scleral icterus Neck Neck Narrative: Patient has some mild paraspinal tenderness very low on the left side of the neck. No central bony tenderness though. Slight discomfort with motion of the neck. Chest Wall inspection of chest normal Chest Narrative: Patient has muscular tenderness supraspinatus and trapezius muscles on the left. I can move her glenohumeral joint without problems. But moving the scapula causes discomfort. There is no swelling. Resp normal respiratory effort and clear to auscultation bilaterally Resp Narrative: Patient can actually take deep breaths without problems. Her lungs are clear. Cardio regular rate and regular rhythm Extremity normal to inspection Extremity Narrative: No distal swelling. No pain with motion of the glenohumeral, elbow wrist or hand. Normal pulses and sensation distally Neuro Neuro Narrative: No numbness tingling or weakness. Sensorium / Orientation: alert Psych mental status grossly normal Skin no rashes or lesions noted MDM MDM MDM Narrative Medical decision making narrative: At first, patient did not get a lot of pain relief at about the 30-minute time period. We then added Toradol. She states now that is finally eased off. She is able to move. She is able to lean back. She is feeling better. She has not developed chest pain trouble breathing numbness tingling or any other symptoms. Not syncopal or presyncopal. Patient still has some mild paraspinal tenderness that reproduces it. Normal pulses and strength. With discussion about imaging or work-up. We all agree that this is very musculoskeletal in nature. It is improving with therapy. We discussed symptoms that would bring her back for further evaluation. 's unit back on the area because that seemed to initiate some of this. She should avoid heat and use ice. Discharge Plan Triage Chief Complaint: Back ED Provider: Judd Montgomery Dx/Rx/DC Orders Clinical Impression: Periscapular pain, Muscle spasm Instructions: ED Muscle Spasm Prescriptions: New cyclobenzaprine 10 mg tablet 10 mg PO BID PRN (Reason: muscle spasm) Qty: 10 0RF oxycodone-acetaminophen [Percocet] 5-325 mg tablet 1 tab PO Q6H PRN (Reason: pain) 3 Days Qty: 10 0RF No Action omega-3 fatty acids 1,000 mg capsule 1,000 mg PO DAILY calcium carbonate 600 MG tablet 1,200 mg PO DAILY magnesium 250 MG tablet 500 mg PO DAILY cholecalciferol (vitamin D3) 1,000 UNIT tablet,chewable 2,000 unit PO DAILY fexofenadine [Itzel Allergy] 60 mg Tablet 60 mg PO DAILY Primary Care Provider: Alanis Lantigua Referrals: Alanis Lantigua, [Primary Care Provider] - 1-2 Days if not improving Disposition Disposition: Home, Self Care
[2022-04-25] MEDS: Orphenadrine 60 MG/2 ML Ampul IM (16:27)
[2022-04-25] MEDS: HYDROmorphone 1 MG/ML Syringe IM (16:30)
[2022-04-25] MEDS: Ketorolac 30 MG/ML Syringe IM (17:38)
[2022-04-25 18:26] VITALS: BP 145/87; PULSE 70; RESP 16; O2SAT 100
[2022-04-25 18:32] VITALS: BP 148/75; PULSE 96; RESP 16; O2SAT 96
== END 2022-04-25 19:06 | disposition home or self-care (01) ==
PROVIDERS: Emergency Provider Emergency Medicine; PCP Internal Medicine; Visit Provider Emergency Medicine
DX: M62.838 Other muscle spasm (principal); R52 Pain, unspecified
CPT/HCPCS: 96372; 99282

== ENCOUNTER → 2022-05-02 | Outpatient (CLI) | payer OTHER, SELFPAY ==
--- NOTE | 2022-05-02 09:40 | RAD_ITS ---
HISTORY: neck pain. TECHNIQUE: XR Spine Cervical 2 or 3 Views. COMPARISON: 04/15/2013. FINDINGS: VERTEBRAE: Segmentation anomaly of C3-4 again noted. No acute fracture identified. ALIGNMENT: No significant anterior or posterior subluxation. Preservation of the cervical lordosis. INTERVERTEBRAL DISCS: Rudimentary disc at C3-4. Progression of intervertebral disc space narrowing and endplate change at C4-5, and C5-6. Degenerative endplate changes with intervertebral disc space narrowing again seen at C6-7. SOFT TISSUES: Unremarkable paraspinal soft tissues. RAD/Cerv Spine 2 or 3 Views IMPRESSION: No acute fracture or dislocation identified in the thoracic spine. Multilevel degenerative change, mildly progressed from prior. Electronically Signed: Suzie Andersen MD at 11:19 EDT ,
--- NOTE | 2022-05-02 09:40 | RAD_ITS ---
HISTORY: Left scapular pain. TECHNIQUE: XR Spine Thoracic 3 Views. COMPARISON: None. FINDINGS: VERTEBRAE: Minimal anterior wedging of T8. ALIGNMENT: No significant anterior or posterior subluxation. INTERVERTEBRAL DISCS: Degenerative endplate changes with osteophytes in the upper to mid thoracic spine. SOFT TISSUES: Unremarkable paraspinal soft tissues. RAD/Thoracic Spine 2 Views IMPRESSION: Minimal chronic appearing compression fracture T8. Degenerative change. Electronically Signed: Suzie Andersen MD at 13:33 EDT ,
== END | disposition home or self-care (01) ==
PROVIDERS: PCP Internal Medicine; Referring Provider Chiropractor; Visit Provider Chiropractor
DX: M50.30 Other cervical disc degeneration, unspecified cervical region (principal); M99.01 Segmental and somatic dysfunction of cervical region; M62.838 Other muscle spasm
CPT/HCPCS: 72040; 72070

== ENCOUNTER 2022-05-24 10:00 | Outpatient (RCR) | payer OTHER, SELFPAY ==
--- NOTE | 2022-05-08 10:37 | HP.PTEVAL_ITS ---
Patient's Visit Information GUME AGEE is a 56 year old F referred to Physical Therapy by Dr. Alanis Lantigua DO with a diagnosis of Muscle Spasms. Date of Evaluation: 05/08/22 Physical Therapist: Dulce Butts DPT - Visit Plan Plan: Focus on Scapular s/s. HEP Given IE: Postural correction, scapular s/s, mid row, bilateral ER, corner stretch, UT stretch, levator stretch - Subjective Patient reports that she was super active golf and tennis and then she started having neck and scapular pain on the right and then she got up and she felt a little better and then was having left shoulder pain- she was also holding her grandson. She put a TENS unit on and then it spasmed and was in severe pain- put ice on it and could not move- her left shoulder was locked- went to the ER. They gave her a muscle relaxer and pain medications. Then she could move- sent home pain meds and a muscle relaxer took for 2 days. She now has a Micky horse in the quad where they gave her the injection for pain. She saw Dr. Hutchison yesterday and she did an adjustment and she is coming to PT. She is golfing and playing tennis. The last 4-5 months she feels like she has been going back and forth between really sore and back. She is planning to have massages. She was doing lifting but she stopped doing it due to the severe shoulder pain. She is better now- she golfed saturday 9 holes and played tennis yesterday. Pains is located along the upper traps from the occiput to the shoulder blades and does have some mild low back pain. She feels that she is back to 80% back to normal but she didn't do anything for 2 weeks. Right hand dominate. Describes the pain as dull and achy with muscle spasms. She does see someone for her lymph- she goes about 6x a year- to help with AGOSTO. PMHx/Meds: see ED note- no changes. - Objective Posture: FH,RS- can correct with verbal cues but does not maintain. Gait: good arm swing and trunk rotation. Palpation: tender along medial scapular border, paraspinals in the thoracic and cervical spine, infraspinutus and upper trap from the occiput to the AC joint. ROM: WFL in all planes does have mild limited cervical ROM due to prior surgical intervention. Strength: Scap: fair, Shoulder: 4+/5, Elbow: 5/5 Wrist: 5/5 [employer]: good - Special Tests R Shoulder Empty Can - SS: Negative R Shoulder Neer - Impingement: Negative R Shoulder Arce Raffaele - Impingement: Negative L Shoulder Empty Can - SS: Negative L Shoulder Neer - Impingement: Negative L Shoulder Arce Raffaele - Impingement: Negative - Balance/Special Test Scores Quick DASH Score: 25.0000 - Goals Goal 1:: Patient will be I with HEP and progression Goal Time Frame: 4-6 Weeks Goal 2:: Patient will maintain proper posture t/o tx session to demo increased scap s/s Goal Time Frame: 4-6 Weeks Goal 3:: Patient will report 80% improvement Goal Time Frame: 4-6 Weeks - Rehabilitation Potential Physical Therapy Diagnosis: Patient presents with hypomobility- she has decreased scap s/s and muscular endurance leading to poor posture and increased pain with ADL's/recreational activities. Rehabilitation Potential: Good - Anticipated Interventions Thank you for the opportunity to evaluate your patient. For Medicare and Medicare HMO plans, please review the plan of care and approve it. It will need to be FAXED BACK to us at [phone] for Medicare purposes. For Medicare only, by signing this I certify the plan of care. Please let me know if there are questions or concerns regarding this plan of care. Physician Signature: _Date:
--- NOTE | 2022-09-13 10:34 | HP.PT.NRP ---
GUME AGEE was seen in my office for initial evaluation on 05/08/22. The following Plan of Care was established for this patient: This patient was last seen in our office . Pertinent comments regarding their Physical therapy will appear below: Patient has continued to perform HEP and has not attended therapy in over 30 days- appropriate to be d/c and return to MD as needed. At this point I will be discontinuing this patient from physical therapy. I would be happy to see this patient again in the future if found appropriate by the physician. Thank you! Dulce Butts, ZOILA Balance/Gait/Functional tests - Balance/Special Test Scores Quick DASH Score: 25.0000
== END 2022-05-24 19:00 | disposition home or self-care (01) ==
LOC: PT 10:00
PROVIDERS: PCP Internal Medicine; Referring Provider Internal Medicine; Visit Provider Internal Medicine
DX: M62.838 Other muscle spasm (principal); G35 Multiple sclerosis
CPT/HCPCS: 97035; 97110; 97140; 97161

== ENCOUNTER → 2022-11-24 | Outpatient (CLI) | payer OTHER, SELFPAY ==
[2022-11-24 08:05] LABS: Bacteria 0 SEEN /hpf (None Seen); Mucous, Urine 0 SEEN /hpf (<or=2+); Red Blood Cells-Urine 0 SEEN /hpf (0-5); Squamous Epithelial Cells - UA 0 SEEN /hpf (5-10); White Blood Cells 0 SEEN /hpf (0-5)
[2022-11-24 08:44] LABS: Absolute Neutrophil Count 2.9 X10^3/uL (2.0-7.7); Basophil# 0.07 X10^3/uL; Basophil% 1.4 % (0-1); Hematocrit 40.1 % (37-47); Hemoglobin 13.2 g/dL (12.0-15.0); Lymphocyte % 29.9 % (19-41); Mean Corp Hgb Conc 32.9 g/dL (32-36); Mean Corpuscular Hgb 31.1 pg (27.0-32.0); Mean Corpuscular Volume 94.4 fL (81-99); Mean Platelet Vol. 9.6 fl (6.2-12.0); Monocyte# 0.45 X10^3/uL; NRBC Flagged by Analyzer 0 % (0-5); Neutrophil # 2.88 X10^3/uL (2.7-7.7); Neutrophil % 57.3 % (47-70); Platelet Count 360 K/mm3 (150-450); RBC Distribution Width CV 12.8 % (11.6-14.6); RBC Distribution Width SD 44.3 fl (35.1-43.9); Red Blood Count 4.25 M/mm3 (4.2-5.4)
[2022-11-24 09:08] LABS: ALB/GLOB Ratio 1.1 RATIO (0.9-2.4); AST(SGOT) 28 U/L (15-37); Alanine Aminotransfer ALT/SGPT 35 U/L (13-56); Albumin, Serum 4.1 g/dL (3.2-5.0); Alkaline Phosphatase 81 U/L (45-117); Anion Gap 4 (5-15); BUN 14 mg/dL (7-18); BUN/Creat Ratio 19.8 RATIO (10-20); Calcium,Total 9.3 mg/dL (8.5-10.1); Chloride 106 mmol/L (98-107); Cholesterol 208 mg/dL (200); Creatinine, Serum 0.71 mg/dL (0.55-1.02); EST Glomerular Filtration Rate 91 mL/min (>60); Est Glom Filt Rate - Afr Amer 110 mL/min (>60); Globulin 3.6 g/dL (2.2-4.2); Glucose 90 mg/dL (74-106); High Density Lipoprotein 118 mg/dL; Protein, Total 7.7 g/dL (6.4-8.2); Sodium Level 140 mmol/L (136-145); Triglycerides 45 mg/dL; Very Low Density Lipoprotein 9 mg/dL (5-40)
[2022-11-24 09:35] LABS: Color, Urine Yellow (Yellow); Glucose, Dipstick Normal (Normal); Ketone-Dipstick Negative (Negative); Leukocyte Esterase-Dipstick Negative /ul (Negative); Nitrite-Dipstick Negative (Negative); Occult Blood-Urine Negative /ul (Negative); Protein-Dipstick 30 mg/dl (Negative); Specific Gravity, Urine 1.015 (1.002-1.030); Urine Bilirubin Dipstick Negative (Negative); Urine Clarity Clear (Clear); Urine Urobilinogen Normal (Normal)
[2022-11-24 09:59] LABS: Microalbumin,Random Urine 6.6 mg/L (NO RANGE EST.); Microalbumin:Creatinine Ratio 7.3 mg/g CRE (<30 mg/g CRE)
[2022-11-24 10:49] LABS: Amorphous Sediment 1+
== END | disposition home or self-care (01) ==
LOC: LAB 07:57
PROVIDERS: PCP Internal Medicine; Referring Provider Internal Medicine; Visit Provider Internal Medicine
DX: I10 Essential (primary) hypertension (principal)
CPT/HCPCS: 36415; 80053; 80061; 81001; 82043; 82570; 85025

== ENCOUNTER → 2023-02-05 | Outpatient (CLI) | payer OTHER, SELFPAY ==
[2023-02-05 10:24] LABS: NATERA MAILED SPECIMEN
== END | disposition home or self-care (01) ==
LOC: MTLAB 09:21
PROVIDERS: PCP Internal Medicine; Referring Provider Obstetrics & Gynecology Gynecology; Visit Provider Obstetrics & Gynecology Gynecology
DX: Z85.3 Personal history of malignant neoplasm of breast (principal); Z80.3 Family history of malignant neoplasm of breast; Z80.0 Family history of malignant neoplasm of digestive organs
CPT/HCPCS: 36415

== ENCOUNTER → 2023-02-25 | Outpatient (CLI) | payer OTHER, SELFPAY ==
--- NOTE | 2023-02-25 09:40 | BI_ITS ---
MAMMOGRAPHY - BILATERAL SCREENING REASON FOR EXAM: Female, 57 years old. Routine annual screening examination. PERTINENT HISTORY: Sister with breast cancer. Remote right stereotactic breast biopsy. TECHNIQUE: Digital bilateral breast leisa (3D mammographic acquisition) in the CC and MLO projections. 2-D mediolateral oblique (MLO) and craniocaudad (CC) views of both breasts were obtained. CAD: Full Field Digital Mammography with Computer Added Detection was performed. COMPARISON: Comparison is made with prior study dated February 06, 2022 and December 19, 2020. FINDINGS: Breast Composition: The breasts are extremely dense, which lowers the sensitivity of mammography. There are no dominant masses or suspicious calcifications. A tissue clip marker is once again seen in the upper deep lateral aspect of the right breast. No other significant abnormalities are identified. There has been no significant change since the prior study. BI/SCRN MAMM (CAD)W/LEISA BILAT IMPRESSION: Stable bilateral screening mammogram. Yearly follow-up mammogram recommended. (A) ASSESSMENT CATEGORY: BIRADS Category 2: Benign. A letter regarding these results will be sent to the patient by the facility within 30 days. Approximately 10% of breast cancers are not detected by mammography. A normal mammogram should not delay biopsy of a clinically suspicious abnormality. [id number] Electronically Signed: Juan Jose Baker MD at 10:54 EDT ,
== END | disposition home or self-care (01) ==
LOC: OPBI 09:38
PROVIDERS: PCP Internal Medicine; Referring Provider Obstetrics & Gynecology Gynecology; Visit Provider Obstetrics & Gynecology Gynecology
DX: Z12.31 Encounter for screening mammogram for malignant neoplasm of breast (principal); Z80.3 Family history of malignant neoplasm of breast
CPT/HCPCS: 77063; 77067

== ENCOUNTER → 2023-09-09 | Outpatient (CLI) | payer OTHER, SELFPAY ==
--- NOTE | 2023-09-09 17:03 | CT_ITS ---
STUDY: CT ABDOMEN AND PELVIS WITHOUT CONTRAST REASON FOR EXAM: Female, 58 years old. RLQ abdominal pain RADIATION DOSAGE (If Supplied By Facility): CTDIvol = ( 6.14 ) mGy, DLP = ( 294.57 ) mGycm TECHNIQUE: Transaxial images were obtained from the dome of the diaphragm to the symphysis pubis without oral contrast, and without intravenous contrast. Sagittal and coronal images were reconstructed. Individualized dose optimization techniques were used for this CT. COMPARISON: 03/18/2020. FINDINGS: The visualized lung bases are unremarkable. The visualized portions of the heart are within normal limits. Normal liver. Normal gallbladder and extrahepatic biliary system. Normal spleen. Normal pancreas. Normal bilateral adrenal glands. Normal right kidney. Normal left kidney. Evaluation of the GI tract is limited by absence of oral contrast. Cannot exclude stomach wall thickening. No dilated loops of bowel or evidence for obstruction. Cannot exclude segmental thickening of the ralph of the small or large bowel. Cannot exclude enteritis or colitis. Moderate diffuse fecal retention. Appendix within normal limits. Normal abdominal aorta. Normal inferior vena cava. Normal retroperitoneum. Normal urinary bladder. Normal visualized uterus. Normal abdominal wall. Normal osseous structures. CT/Abdomen/Pelvis without Cont IMPRESSION: No definite acute or significant abnormality seen. Electronically Signed: Carrillo Escobar MD at 18:31 EST ,
[2023-09-09 17:47] LABS: Absolute Lymphocyte Count 1.74 X10^3/uL (0.83-4.51); Absolute Neutrophil Count 3.8 X10^3/uL (2.0-7.7); Basophil# 0.03 X10^3/uL; Basophil% 0.5 % (0-1); Eosinophil# 0.09 X10^3/uL; Eosinophils% 1.5 % (0-5); Hemoglobin 13.3 g/dL (12.0-15.0); Lymphocyte # 1.74 X10^3/ul (0.83-4.51); Lymphocyte % 28.2 % (19-41); Mean Corp Hgb Conc 32.4 g/dL (32-36); Mean Corpuscular Hgb 30.6 pg (27.0-32.0); Mean Corpuscular Volume 94.5 fL (81-99); Mean Platelet Vol. 9.5 fl (6.2-12.0); Monocyte# 0.54 X10^3/uL; Monocyte% 8.8 % (0-10); NRBC Flagged by Analyzer 0 % (0-5); Neutrophil # 3.75 X10^3/uL (2.7-7.7); Neutrophil % 60.8 % (47-70); Platelet Count 367 K/mm3 (150-450); RBC Distribution Width CV 12.2 % (11.6-14.6); RBC Distribution Width SD 42.8 fl (35.1-43.9); Red Blood Count 4.34 M/mm3 (4.2-5.4); White Blood Count 6.2 K/mm3 (4.4-11.0)
[2023-09-09 18:03] LABS: Erythrocyte Sedimentation Rate 14 mm/hr (0-30)
[2023-09-09 18:36] LABS: ALB/GLOB Ratio 1.1 RATIO (0.9-2.4); AST(SGOT) 27 U/L (15-37); Alanine Aminotransfer ALT/SGPT 31 U/L (13-56); Albumin, Serum 4.2 g/dL (3.2-5.0); Alkaline Phosphatase 89 U/L (45-117); Anion Gap 3 (5-15); BUN 15 mg/dL (7-18); BUN/Creat Ratio 17.2 RATIO (10-20); Calcium,Total 9.5 mg/dL (8.5-10.1); Chloride 106 mmol/L (98-107); Creatinine, Serum 0.87 mg/dL (0.55-1.02); EST Glomerular Filtration Rate 71 mL/min (>60); Est Glom Filt Rate - Afr Amer 86 mL/min (>60); Globulin 3.8 g/dL (2.2-4.2); Glucose 94 mg/dL (74-106); Potassium 3.9 mmol/L (3.5-5.1); Sodium Level 138 mmol/L (136-145); Thyroid Stim Hormone (TSH) 1.55 uIU/mL (0.358-3.74)
--- OUTSIDE RECORDS SUMMARY | 2023-09-10 00:22 | XMS RPT_ITS | CCD ---
Author Name Unknown Address [address] [place] [address] Organization [facility] Care Team Providers Care Concession Attendant Name Role Phone Dossi Roseline WALLER Unavailable Baylee Badillo Unavailable Unavailable Baylee Badillo Unavailable Unavailable Alanis Lantigua Unavailable Venancio Cr Unavailable John [place], Lise Unavailable [phone] Jaki Jean Unavailable Shaheen Castorena Unavailable Kang Kirkpatrick Unavailable Juan Luis Eaton Unavailable Unavailab Austin Ramos Unavailable Gaillea Dee Unavailable Unavailable anju, joaquim Unavailable Unavailable Unavailable Unavailable NIKA ALVAREZ Attending Unavailable NIKA ALVAREZ Primary Care Unavailable Dossi Roseline WALLER Unavailable Yue Patel Unavailable [place]mira Chowdhury Unavailable Unavailable Esa Finney Unavailable Kayleigh Coles Unavailable Unavailable John Lisa, Lise Unavailable Jerald Mcleod Unavailable Soo Cadet Unavailable Unavailable Deirdre Hamilton Unavailable Unavailable Galilea Dee Unavailable Unavailable Tyson White Unavailable Unavailable Sofia Cochran Unavailable joaquim Parra Unavailable Unavailable Tyson Marcelino Unavailable Unavailable Alanis Lantigua DO Unavailable Dr. Venancio Cr MD Unavailable Yue Patel Unavailable JohnStacey Acunaen Unavailable Fascione, Jaki M Unavailable Shaheen Castorena MD Unavailable Harsha GUIDRY, Jerald Hernandez Unavailable Dr. Kang Kirkpatrick Unavailable Juan Luis Eaton R Unavailable Unavailab Sofia Prado Unavailable [facility], [place] Unavailable Esa Finney Unavailable Chichi NAGELN, Soo Unavailable Unavailable Ryland MCCRARY, Tyson Unavailable Unavailable Aida, joaquim Unavailable Unavailable Leila RN, Galilea Unavailable Unavailable Slacristian DOLL WIG MAKER ROOTED HAIR, Deirdre Unavailable Unavailable Unavailable Unavailable Samia De Los Santos MA Unavailable Unavailable Rhina DO, Alanis Unavailable [facility] COOLER SERVICE SUPERVISOR, [place] Unavailable Unavailable [facility] Unavailable Shivani Salguero MA Unavailable Unavailable [employer] COOLER SERVICE SUPERVISOR, Kayela Unavailable Unavailable Rhina DO, Alanis Unavailable Dr. Venancio Cr MD Unavailable Yue Patel Unavailable Lise Escamilla Unavailable Chemaone, Jaki M Unavailable Shaheen Castorena MD Unavailable [facility] Unavailable Harsha GUIDRY, Jerald Hernandez Unavailable Dr. Kang Kirkpatrick Unavailable Juan Luis Eaton R Unavailable Unavailab Sofia Prado K Unavailable Abhijit, [place] Unavailable Esa Finney Unavailable [employer] COOLER SERVICE SUPERVISOR, Kayela Unavailable Unavailable Ryland MCCRARY, Tyson Unavailable Unavailable [facility] COOLER SERVICE SUPERVISOR, [place] Unavailable Unavailable Leila BALDERAS, Galilea Unavailable Unavailable Slarb DOLL WIG MAKER ROOTED HAIR, Deirdre Unavailable Unavailable Chichi DOLL WIG MAKER ROOTED HAIR, Soo Unavailable Unavailable Unavailable Unavailable Alanis Lantigua DO Attending Unavailable Mally Villalpando DO Referring Unavailable Alanis Lantigua DO Consulting Unavailable Allergies Allergy Classification Reported Allergen(s) Allergy Type Date of Onset Reaction(s) Facility Acetaminophen / traMADol (2 sources) Acetaminophen / traMADol Drug Allergy [facility] Work Phone: Penicillins (antibiotic) (4 sources) Penicillins; Translations: [Penicillins] Drug Allergy [facility] Work Phone: (20 sources) acetaminophen / traMADol drug allergy 6 [facility] Work Phone: (9 sources) codeine drug allergy 1 [facility] Work Phone: (9 sources) penicillin drug allergy 1 [facility] Work Phone: (20 sources) Penicillins; Translations: [Penicillins] allergy to substance [facility] Work Phone: (20 sources) Codeine/Codeine Derivatives; Translations: [Codeine/Codeine Derivatives] allergy to substance [facility] Work Phone: (1 source) allergy to substance [facility] Work Phone: (1 source) allergy to substance [facility] Work Phone: (1 source) allergy to substance [facility] Work Phone: (1 source) allergy to substance [facility] Work Phone: (1 source) allergy to substance [facility] Work Phone: (1 source) allergy to substance [facility] Work Phone: (1 source) allergy to substance [facility] Work Phone: (1 source) allergy to substance [facility] Work Phone: (20 sources) Amoxicillin Drug Allergy [facility] Work Phone: (1 source) Allergy to substance (finding) [facility] Work Phone: (1 source) Allergy to substance (finding) [facility] Work Phone: (1 source) Allergy to substance (finding) [facility]; [facility] Work Phone: (1 source) Allergy to substance (finding) [facility] Work Phone: (1 source) Allergy to substance (finding) [facility] Work Phone: (1 source) Allergy to substance (finding) [facility]; [facility] Work Phone: Medications Completed/Discontinued Medications Medication Drug Class(es) Dates Sig (Normalized) Sig (Original) acetaminophen 21.7 mg/ml / dextromethorphan hydrobromide 1 mg/ml / doxylamine succinate 0.417 mg/ml oral solution (8 sources) Uncompetitive J-sjebsp-D-aspartat e Receptor Antagonist, Sigma-1 Agonist Start: 05-10-2021 End: 05-24-2021 [id number] actuat albuterol 0.09 mg/actuat metered dose inhaler (8 sources) beta2-Adrenergic Agonist Start: 10-05-2021 End: 03-08-2022 Problems Active Problems Problem Classification Problem Date Documented Da te Episodic/Chronic Abdominal pain (19 sources) Pain in female pelvis; Translations: [Pelvic pain in female] Resolved: 09-12-2022 10-27-2021 Episodic Past or Other Problems Problem Classification Problem Date Documented Da te Episodic/Chronic Headache; including migraine (20 sources) Headache; including migraine Influenza (20 sources) Influenza Neoplasms of unspecified nature or uncertain behavior (9 sources) Neoplasm of uncertain behavior of skin; Translations: [Neoplasm of uncertain behavior of skin] 11-28-2010 Episodic Other bone disease and musculoskeletal deformities (18 sources) Pelvic somatic dysfunction; Translations: [Segmental and somatic dysfunction] Onset: 11-21-2016 11-21-2016 Episodic Other bone disease and musculoskeletal deformities (6 sources) Segmental and somatic dysfunction; Translations: [Segmental and somatic dysfunction of thoracic region] Onset: 11-21-2016 11-21-2016 Episodic Other connective tissue disease (20 sources) Lateral epicondylitis of right humerus; Translations: [Lateral epicondylitis of right elbow] Resolved: 08-23-2017 08-23-2017 Other connective tissue disease (20 sources) Pain in finger of right hand; Translations: [Finger pain, right] Resolved: 04-11-2018 04-11-2018 Other connective tissue disease (20 sources) Left achilles tendonitis; Translations: [Achilles tendinitis of left lower extremity] Resolved: 08-23-2017 08-23-2017 Other non-epithelial cancer of skin (9 sources) Other and unspecified malignant neoplasm of skin, site unspecified; Translations: [Other and unspecified malignant neoplasm of skin, site unspecified] 11-28-2010 Episodic Other non-traumatic joint disorders (20 sources) Knee pain; Translations: [Acute pain of left knee] Resolved: 04-11-2018 04-11-2018 Episodic Other skin disorders (20 sources) Cafe au lait spots; Translations: [Corns and callus] 11-28-2010 Episodic Other skin disorders (20 sources) Nonscarring hair loss, unspecified; Translations: [Non-scarring alopecia] Resolved: 03-23-2016 08-23-2017 Episodic Other skin disorders (20 sources) Disorder of hair AND/OR hair follicle; Translations: [Other specified diseases of hair and hair follicles] Resolved: 03-23-2016 08-23-2017 Episodic Other skin disorders (3 sources) Corns and callus; Translations: [Corns and callosities] 11-28-2010 Episodic Other skin disorders (3 sources) Scar; Translations: [Scar conditions and fibrosis of skin] 11-28-2010 Episodic Other skin disorders (3 sources) Asteatosis cutis; Translations: [Xerosis cutis] 11-28-2010 Episodic Residual codes; unclassified (20 sources) Requires a tetanus booster; Translations: [Need for prophylactic vaccination with tetanus toxoid alone] Resolved: 01-19-2009 03-23-2016 Episodic Residual codes; unclassified (20 sources) Requires diphtheria, tetanus and pertussis vaccination; Translations: [Need for Tdap vaccination] Resolved: 08-12-2015 03-23-2016 Episodic Unclassified (20 sources) Achilles tendinitis of left lower extremity Unclassified (20 sources) Deliveries (Parity); Translations: [Deliveries (Parity)] 04-11-2018 Results Test Name Value Interpretation Reference Range Facil ity Vital Signs Date Time Vital Sign Value Performing Clinician Facility 09-12-2022 08:08-0500 Body height 163.83 cm Soo Cadet LPN [facility] Work Phone: 09-12-2022 08:08-0500 Body mass index (BMI) [Ratio] 20.87 kg/m2 Soo Cadet LPN [facility] Work Phone: 09-12-2022 08:08-0500 Body surface area Derived from formula 1.6 m2 Soo Cadet LPN [facility] Work Phone: 09-12-2022 08:08-0500 Body temperature 98.1 [degF] Soo Cadet LPN [facility] Work Phone: 09-12-2022 08:08-0500 Body weight 56.02 kg Soo Cadet LPN [facility] Work Phone: 09-12-2022 08:08-0500 Diastolic blood pressure 78 mm[Hg] Soo Cadet LPN [facility] Work Phone: 09-12-2022 08:08-0500 Heart rate 81 /min Soo Cadet LPN [facility] Work Phone: 09-12-2022 08:08-0500 Respiratory rate 16 /min Soo Cadet LPN [facility] Work Phone: 09-12-2022 08:08-0500 SaO2% (BldA) [Mass fraction] 98 % Soo Cadet LPN [facility] Work Phone: 09-12-2022 08:08-0500 Systolic blood pressure 118 mm[Hg] Soo Cadet LPN [facility] Work Phone: 05-16-2022 11:29-0400 Body height 163.83 cm Sherine Espinal CMA [facility] Work Phone: 05-16-2022 11:29-0400 Body mass index (BMI) [Ratio] 21.29 kg/m2 [facility] Work Phone: 05-16-2022 11:29-0400 Body surface area Derived from formula 1.62 m2 [facility] Work Phone: 05-16-2022 11:29-0400 Body temperature 96.8 [degF] [facility]; [facility] Work Phone: 05-16-2022 11:29-0400 Body weight 57.15 kg [facility] Work Phone: 05-16-2022 11:29-0400 Diastolic blood pressure 82 mm[Hg] [facility] Work Phone: Encounters Encounter Date Encounter Type Care Provider Facility Start: 09-12-2022 ambulatory Alanis Rhina DO [facility] Start: 09-12-2022 End: 09-12-2022 Office outpatient visit 15 minutes Alanis Rhina DO Work Phone: [facility] Start: 09-12-2022 Alanis Fearo n DO Work Phone: [facility] Start: 05-16-2022 Review Alanis Fearo n DO Work Phone: [facility] Start: 05-16-2022 End: 05-16-2022 Office outpatient visit 15 minutes Alanis Rhina DO Work Phone: [facility] Start: 04-30-2022 End: 04-30-2022 Office outpatient visit 10 minutes Alanis Rhina DO Work Phone: [facility] Start: 03-08-2022 End: 03-08-2022 Office outpatient visit 15 minutes Alanis Rhina DO Work Phone: [facility] Start: 10-27-2021 End: 10-27-2021 Annotation/Addendum Alanis Rhina DO Work Phone: [facility] Start: 10-27-2021 End: 10-27-2021 Alanis Rhina DO Work Phone: [facility] Start: 10-26-2021 End: 10-26-2021 Office outpatient visit 25 minutes Alanis Rhina DO Work Phone: [facility] Start: 10-05-2021 End: 10-05-2021 Office outpatient visit 15 minutes Alanis Rhina DO Work Phone: [facility] Start: 06-15-2021 End: 06-15-2021 Office outpatient visit 5 minutes Alanis Rhina DO Work Phone: [facility] Start: 05-24-2021 End: 05-24-2021 Office outpatient visit 15 minutes Alanis Rhina DO Work Phone: [facility] Start: 05-19-2021 End: 05-19-2021 Office outpatient visit 10 minutes Alanis Rhina DO Work Phone: [facility] Start: 05-12-2021 End: 05-12-2021 Office outpatient visit 10 minutes Alanis Rhina DO Work Phone: [facility] Start: 05-10-2021 End: 05-10-2021 Office outpatient visit 10 minutes Alanis Rhina DO Work Phone: [facility] Start: 12-09-2020 End: 12-09-2020 Annotation/Addendum Alanis Rhina DO Work Phone: [facility] Start: 12-09-2020 End: 12-09-2020 Alanis Rhina DO Work Phone: [facility] Start: 05-18-2020 End: 05-18-2020 Annotation/Addendum Alanis Rhina [facility] Start: 05-18-2020 End: 05-18-2020 Alanis Rhina DO Work Phone: [facility] Start: 05-17-2020 End: 05-18-2020 Office outpatient visit 5 minutes Alanis Lantigua [facility] Start: 05-17-2020 Review Alanis Lantigua [facility] Start: 03-15-2020 End: 03-16-2020 Phone Encounter Alanis Lantigua [facility] Start: 03-15-2020 End: 03-16-2020 Alanis Lantigua DO Work Phone: [facility] Start: 02-24-2020 End: 02-24-2020 Office outpatient visit 15 minutes Alanis Rhina [facility] Start: 07-16-2019 End: 07-16-2019 Phone Encounter Alanis Lantigua [facility] Start: 07-16-2019 End: 07-16-2019 Alanis Lantigua DO Work Phone: [facility] Start: 07-01-2019 End: 07-01-2019 Office outpatient visit 10 minutes Alanis Rhina [facility] Start: 06-17-2019 End: 06-17-2019 Office outpatient visit 15 minutes Alanis Rhina [facility] Start: 04-08-2019 End: 04-08-2019 Office outpatient visit 15 minutes Alanis Lantigua [facility] Start: 12-02-2018 End: 12-02-2018 Phone Encounter Alanis Lantigua [facility] Start: 12-02-2018 End: 12-02-2018 Alanis Lantigua DO Work Phone: [facility] Start: 11-27-2018 End: 11-27-2018 Office outpatient visit 15 minutes Alanis Rhina [facility] Start: 10-22-2018 End: 10-27-2018 Patient encounter procedure NIKA KIM Facility:[facility] Start: 08-04-2018 Review Alanis Lantigua [facility] Start: 08-04-2018 End: 08-04-2018 Patient encounter status Alanis Lantigua DO Work Phone: [facility] Start: 08-04-2018 End: 08-04-2018 Phone Encounter Alanis Patrickon [facility] Start: 08-04-2018 End: 08-04-2018 Alanisbala Patrickon DO Work Phone: [facility] Start: 04-11-2018 End: 04-11-2018 Office outpatient visit 15 minutes Alanis Lantigua [facility] Start: 04-03-2018 End: 04-03-2018 Phone Encounter [facility] Start: 04-03-2018 End: 04-03-2018 Alanis Lantigua DO Work Phone: [facility] Start: 02-07-2018 End: 02-07-2018 Office outpatient visit 10 minutes Alanis Lantigua [facility] Start: 12-16-2017 End: 12-16-2017 Office outpatient visit 15 minutes Alanis Lantigua [facility] Start: 09-11-2017 End: 09-11-2017 Phone Encounter Alanis Rhina [facility] Start: 09-11-2017 End: 09-11-2017 Alanis Lantigua DO Work Phone: [facility] Start: 08-23-2017 End: 08-23-2017 Office outpatient visit 15 minutes Alanis Lantigua [facility] Start: 05-16-2017 End: 05-16-2017 Office outpatient visit 5 minutes Alanis Lantigua [facility] Start: 10-08-2016 End: 10-08-2016 Office outpatient visit 25 minutes Alanis Lantigua [facility] Start: 03-23-2016 End: 03-23-2016 Office outpatient visit 15 minutes Alanis Lantigua [facility] Start: 08-19-2015 End: 08-21-2015 Office outpatient visit 15 minutes Alanis Lantigua [facility] Start: 08-12-2015 End: 08-14-2015 Office outpatient visit 25 minutes Alanis Lantigua [facility] Start: 06-28-2015 End: 06-28-2015 Office outpatient visit 5 minutes Alanis Lantigua [facility] Start: 05-23-2015 End: 05-23-2015 Office outpatient visit 15 minutes Alanis Lantigua [facility] Start: 09-15-2014 End: 09-20-2014 Office outpatient visit 15 minutes Alanis Lantigua [facility] Start: 04-27-2014 End: 04-27-2014 Office outpatient visit 15 minutes Alanis Lantigua [facility] Start: 01-11-2014 End: 01-11-2014 Patient encounter procedure Alanis Lantigua [facility] Start: 01-11-2014 End: 01-11-2014 Alanis Lantigua DO Work Phone: [facility] Start: 11-30-2013 End: 12-03-2013 Patient encounter procedure Alanis Lantigua [facility] Start: 11-30-2013 End: 12-03-2013 Alanis Lantigua DO Work Phone: [facility] Start: 10-26-2013 End: 10-26-2013 Patient encounter procedure Jennifer Ayoubremijung [facility] Start: 10-26-2013 End: 10-26-2013 Alanis Lantigua DO Work Phone: [facility] Start: 05-29-2013 End: 05-29-2013 Patient encounter procedure Alanis Lantigua [facility] Start: 05-29-2013 End: 05-29-2013 Alanis Lantigua DO Work Phone: [facility] Start: 01-13-2013 End: 01-19-2013 Patient encounter procedure Alanis Lantigua [facility] Start: 01-13-2013 End: 01-19-2013 Alanis Lantigua DO Work Phone: [facility] Start: 12-15-2012 End: 12-15-2012 Patient encounter procedure Alanis Lantigua [facility] Start: 12-15-2012 End: 12-15-2012 Alanis Lantigua DO Work Phone: [facility] Start: 11-26-2012 End: 11-26-2012 Patient encounter procedure Alanis Lantigua [facility] Start: 11-26-2012 End: 11-26-2012 Alanis Lantigua DO Work Phone: [facility] Start: 09-01-2012 End: 09-01-2012 Patient encounter procedure Alanis Lantigua [facility] Start: 09-01-2012 End: 09-01-2012 Alanis Lantigua DO Work Phone: [facility] Start: 08-12-2012 End: 08-12-2012 Office outpatient visit 15 minutes Alanisbala Lantigua [facility] Start: 08-01-2012 End: 08-01-2012 Phone Encounter Alanis Lantigua [facility] Start: 08-01-2012 End: 08-01-2012 Alanis Lantigua DO Work Phone: [facility] Start: 07-31-2012 End: 07-31-2012 Phone Encounter Alanis Lantigua [facility] Start: 07-31-2012 End: 07-31-2012 Alanis Lantigua DO Work Phone: [facility] Start: 06-13-2012 End: 06-13-2012 Patient encounter procedure Alanis Lantigua DO Work Phone: [facility] Start: 06-13-2012 End: 06-13-2012 Phone Encounter Alanis Lantigua [facility] Start: 06-13-2012 End: 06-13-2012 Alanis Lantigua DO Work Phone: [facility] Start: 05-27-2012 End: 05-27-2012 Patient encounter procedure Alanis Lantigua [facility] Start: 05-27-2012 End: 05-27-2012 Alanis Lantigua DO Work Phone: [facility] Start: 04-11-2012 End: 04-11-2012 Patient encounter procedure Alanis Lantigua [facility] Start: 04-11-2012 End: 04-11-2012 Alanis Patrickon DO Work Phone: [facility] Start: 03-20-2012 End: 03-20-2012 Phone Encounter Alanis Lantigua [facility] Start: 03-20-2012 End: 03-20-2012 Alanis Lantigua DO Work Phone: [facility] Start: 03-18-2012 End: 03-20-2012 Patient encounter procedure Alanis Lantigua [facility] Start: 03-18-2012 End: 03-20-2012 Alanis Lantigua DO Work Phone: [facility] Start: 11-05-2011 End: 11-05-2011 Phone Encounter Alanis Lantigua [facility] Start: 11-05-2011 End: 11-05-2011 Alanis Patrickon DO Work Phone: [facility] Start: 11-05-2011 End: 11-05-2011 Patient encounter procedure Alanis Lantigua [facility] Start: 11-05-2011 End: 11-05-2011 Alanis Lantigua DO Work Phone: [facility] Start: 11-02-2011 End: 11-09-2011 Patient encounter procedure Alanis Lantigua [facility] Start: 11-02-2011 End: 11-09-2011 Alanis Lantigua DO Work Phone: [facility] Start: 09-12-2011 End: 09-12-2011 Annotation/Addendum Alanis Lantigua [facility] Start: 09-12-2011 End: 09-12-2011 Alanis Lantigua DO Work Phone: [facility] Start: 08-15-2011 End: 08-15-2011 Patient encounter procedure Alanis Lantigua [facility] Start: 08-15-2011 End: 08-15-2011 Alanis Lantigua DO Work Phone: [facility] Start: 05-30-2011 End: 05-30-2011 Patient encounter procedure Alanis Lantigua [facility] Start: 05-30-2011 End: 05-30-2011 Alanis Lantigua DO Work Phone: [facility] Start: 04-26-2011 End: 04-27-2011 Patient encounter procedure Alanis Lantigua [facility] Start: 04-26-2011 End: 04-27-2011 Alanis Lantigua DO Work Phone: [facility] Start: 10-30-2010 End: 10-30-2010 Office outpatient visit 15 minutes Alanis Lantigua [facility] Start: 10-09-2010 End: 10-10-2010 Patient encounter procedure Alanis Lantigua [facility] Start: 10-09-2010 End: 10-10-2010 Alanis Lantigua DO Work Phone: [facility] Start: 10-04-2010 End: 10-04-2010 Annotation/Addendum Alanis Lantigua [facility] Start: 10-04-2010 End: 10-04-2010 Alnais Lantigua DO Work Phone: [facility] Start: 10-04-2010 End: 10-04-2010 Office outpatient visit 15 minutes Alanis Lantigua [facility] Start: 06-12-2010 End: 06-12-2010 Phone Encounter Alanis Lantigua [facility] Start: 06-12-2010 End: 06-12-2010 Alanis Lantigua DO Work Phone: [facility] Start: 06-05-2010 End: 06-05-2010 Patient encounter procedure Alanis Lantigua [facility] Start: 06-05-2010 End: 06-05-2010 Alanis Lantigua DO Work Phone: [facility] Start: 05-17-2010 End: 05-17-2010 Patient encounter procedure Alanis Lantigua [facility] Start: 05-17-2010 End: 05-17-2010 Alanis Lantigua DO Work Phone: [facility] Start: 05-09-2010 End: 05-09-2010 Patient encounter procedure Alanis Lantigua [facility] Start: 05-09-2010 End: 05-09-2010 Alanis Lantigua DO Work Phone: [facility] Start: 02-24-2010 End: 02-24-2010 Patient encounter procedure Alanis Lantigua [facility] Start: 02-24-2010 End: 02-24-2010 Alanis Lantigua DO Work Phone: [facility] Start: 11-15-2009 End: 11-15-2009 Office outpatient visit 25 minutes Alanis Lantigua [facility] Start: 07-11-2009 End: 07-11-2009 Annotation/Addendum Alanis Lantigua [facility] Medical Billing Assistant al Medicine Start: 07-11-2009 End: 07-11-2009 Alanis Lantigua DO Work Phone: [facility] Start: 04-28-2009 End: 04-28-2009 Patient encounter procedure Alanis Lantigua [facility] Start: 04-28-2009 End: 04-28-2009 Alanis Lantigua DO Work Phone: [facility] Start: 03-11-2009 End: 03-13-2009 Patient encounter procedure Alanis Lantigua [facility] Start: 03-11-2009 End: 03-13-2009 Alanisbala Lantigua DO Work Phone: [facility] Start: 01-19-2009 End: 01-19-2009 Historical Summary Alanis Lantigua [facility] Medical Billing Assistant al Medicine Start: 01-19-2009 End: 01-19-2009 Alanis Lantigua DO Work Phone: [facility] Start: 11-03-2008 End: 11-04-2008 Patient encounter procedure Alanis Lantigua [facility] Start: 11-03-2008 End: 11-04-2008 Alanis Lantigua DO Work Phone: [facility] Start: 09-28-2008 End: 09-28-2008 Patient encounter procedure Alanis Lantigua [facility] Start: 09-28-2008 End: 09-28-2008 Alanis Lantigua DO Work Phone: [facility] Start: 05-20-2008 End: 05-20-2008 Nursing evaluation of patient and report Alanis Lantigua [facility] Start: 05-20-2008 End: 05-20-2008 Alanis Lantigua DO Work Phone: [facility] Start: 02-16-2008 End: 02-16-2008 Patient encounter procedure Alanis Lantigua [facility] Start: 02-16-2008 End: 02-16-2008 Alanis Lantigua DO Work Phone: [facility] Medicine Start: 12-09-2007 End: 12-09-2007 Office outpatient visit 15 minutes Alanis Lantigua [facility] Start: 09-16-2007 End: 09-16-2007 Patient encounter procedure Alanis Lantigua [facility] Start: 09-16-2007 End: 09-16-2007 Alanis Lantigua DO Work Phone: [facility] Start: 08-13-2007 End: 08-13-2007 Office outpatient visit 25 minutes Alanis Lantigua [facility] Start: 06-17-2007 End: 06-17-2007 Patient encounter procedure Alanis Lantigua [facility] Start: 06-17-2007 End: 06-17-2007 Alanis Lantigua DO Work Phone: [facility] Start: 12-04-2006 End: 12-04-2006 Patient encounter procedure Alanis Lantigua [facility] Start: 12-04-2006 End: 12-04-2006 Alanis Lantigua DO Work Phone: [facility] Start: 05-28-2006 End: 05-28-2006 Nursing evaluation of patient and report Alanis Lantigua [facility] Start: 05-28-2006 End: 05-28-2006 Alanis Lantigua DO Work Phone: [facility] Patient encounter status Soo Cadet [facility]; [facility] Work Phone: Patient encounter status Soo Cad[facility]; [facility] Work Phone: Patient encounter status Deirdre Hamilton [facility]; [facility] Work Phone: Patient encounter status [facility] Chowdhury [facility]; [facility] Work Phone: [facility] Work Phone: [facility] Work Phone: Procedures Date Procedure Procedure Detail Performing Clinician Start: 05-08-2022 End: 05-08-2022 Inital Evaluation (1) - PT Procedure Note: See Note; NOTES: [facility] Physical [facility] [address] [place] [address] [address] [place] [address] / REHABILITATION SERVICES INITIAL EVALUATION MR#: [id number] Acct: [id number] Name: GUME CARDOZA Rep #: [id number] : 1965 56 From: Dulce Butts DPT Referring Dr.: Dr. Alanis Lantigua DO Status: REG RCR Insurance: [facility] [employer] SELF PAY INSURANCE Patient's Visit Information GUME CARDOZA is a 56 year old F referred to Physical Therapy by Dr. Alanis Lantigua DO with a diagnosis of Muscle Spasms. Date of Evaluation: 05/08/22 Physical Therapist: Dulce Butts DPT - Visit Plan Plan: Focus on Scapular s/s. HEP Given IE: Postural correction, scapular s/s, mid row, bilateral ER, corner stretch, UT stretch, levator stretch - Subjective Patient reports that she was super active golf and tennis and then she started having neck and scapular pain on the right and then she got up and she felt a little better and then was having left shoulder pain- she was also holding her grandson. She put a TENS unit on and then it spasmed and was in severe pain- put ice on it and could not move- her left shoulder was locked- went to the ER. They gave her a muscle relaxer and pain medications. Then she could move- sent home pain meds and a muscle relaxer took for 2 days. She now has a Micky horse in the quad where they gave her the injection for pain. She saw Dr. Hutchison yesterday and she did an adjustment and she is coming to PT. She is golfing and playing tennis. The last 4-5 months she feels like she has been going back and forth between really sore and back. She is planning to have massages. She was doing lifting but she stopped doing it due to the severe shoulder pain. She is better now- she golfed saturday 9 holes and played tennis yesterday. Pains is located along the upper traps from the occiput to the shoulder blades and does have some mild low back pain. She feels that she is back to 80% back to normal but she didn't do anything for 2 weeks. Right hand dominate. Describes the pain as dull and achy with muscle spasms. She does see someone for her lymph- she goes about 6x a year- to help with AGOSTO. PMHx/Meds: see ED note- no changes. - Objective Posture: FH,RS- can correct with verbal cues but does not maintain. Gait: good arm swing and trunk rotation. Palpation: tender along medial scapular border, paraspinals in the thoracic and cervical spine, infraspinutus and upper trap from the occiput to the AC joint. ROM: WFL in all planes does have mild limited cervical ROM due to prior surgical intervention. Strength: Scap: fair, Shoulder: 4+/5, Elbow: 5/5 Wrist: 5/5 Car Checker: good - Special Tests R Shoulder Empty Can - SS: Negative R Shoulder Neer - Impingement: Negative R Shoulder Arce Raffaele - Impingement: Negative L Shoulder Empty Can - SS: Negative L Shoulder Neer - Impingement: Negative L Shoulder Arce Raffaele - Impingement: Negative - Balance/Special Test Scores Quick DASH Score: 25.0000 - Goals Goal 1:: Patient will be I with HEP and progression Goal Time Frame: 4-6 Weeks Goal 2:: Patient will maintain proper posture t/o tx session to demo increased scap s/s Goal Time Frame: 4-6 Weeks Goal 3:: Patient will report 80% improvement Goal Time Frame: 4-6 Weeks - Rehabilitation Potential Physical Therapy Diagnosis: Patient presents with hypomobility- she has decreased scap s/s and muscular endurance leading to poor posture and increased pain with ADL's/recreational activities. Rehabilitation Potential: Good - Anticipated Interventions Thank you for the opportunity to evaluate your patient. For Medicare and Medicare HMO plans, please review the plan of care and approve it. It will need to be FAXED BACK to us at [phone] for Medicare purposes. For Medicare only, by signing this I certify the plan of care. Please let me know if there are questions or concerns regarding this plan of care. Physician Signature: _Date: <Electronically signed by Dulce Butts DPT> 05/08/22 1037 CC: Dr. Alanis Lantigua DO ELR Signed Alanis Lantigua DO Work Phone: Start: 05-07-2022 End: 05-07-2022 Chiropractic Report Procedure Note: See Note; NOTES: [facility] [address] [place] [address] OFFICE VISIT Date of Service: 05/07/22 MR#: [id number] Acct: [id number] Name: GUME CARDOZA Rep #: [id number] : 1965 Provider: DC Dr. Roseline Fatima Age/Sex: 56/F Location: [facility] Status: Signed Intake Vital Signs 04/09/22 09:46 04/25/22 15:43 Height 5 ft 5 in 5 ft 5 in Intake Visit Reasons: Back pain Chief Complaint: right shoulder blade pain Allergies codeine Adverse Reaction (Verified 05/07/22 10:33) Rash Penicillins Adverse Reaction (Verified 05/07/22 10:33) Rash Medications calcium carbonate 600 mg calcium (1,500 mg) tablet 1,200 mg PO DAILY 04/19/16 [History Confirmed 05/07/22] cholecalciferol (vitamin D3) 25 mcg (1,000 unit) chewable tablet 2,000 unit PO DAILY 04/19/16 [History Confirmed 05/07/22] magnesium 250 mg tablet 500 mg PO DAILY 04/19/16 [History Confirmed 05/07/22] omega-3 fatty acids 1,000 mg capsule 1,000 mg PO DAILY 03/28/19 [History Confirmed 05/07/22] cyclobenzaprine 10 mg tablet 10 mg PO BID PRN muscle spasm #10 tabs 04/25/22 [Rx Confirmed 05/07/22] fexofenadine 60 mg tablet (Itzel Allergy) 60 mg PO DAILY 04/25/22 [History Confirmed 05/07/22] oxycodone-acetaminophen 5 mg-325 mg tablet (Percocet) 1 tab PO Q6H PRN pain 3 days #10 tabs 04/25/22 [Rx Confirmed 05/07/22] PFSH Medical History Abdominal pain Acute sinusitis, unspecified DFSP Encounter for screening for COVID-19 Surgical History History of neck surgery History of tonsillectomy and adenoidectomy Social History Smoking Status: Never smoker alcohol intake: current Alcohol type: wine HPI Back pain Chief Complaint: left shoulder blade pain Visit Number: 4 Details: Gume is a 56 year old female here for f/u on upper back pain. She had a lot of relief since her last appt. She states she played a little golf yesterday and her low back is a little sore but not painful. She treats pain at home with ice, TENS, Motrin and stretching as needed. Pt. is usually very active but has been taking it easy and resting more. She reports chiropractic treatments are effective in relieving her pain. She denies numbness, tingling or radiculopathy at this time. Location: back Duration: intermittent Aggravating or associated factors: golf, forward head posture Relieving factors: rest Exam Musc General: Yes normal posture, normal gait, joint tenderness and decreased range of motion; No muscle weakness Cervical Spine: Yes cervical muscular tenderness bilateral lower , Yes cervical spasm right greater than left lower trapezius and Yes misalignment misalignment: C5, C6 and C7 Thoracic/Lumber: No thoracic and lumbar spine normal to inspection, Yes paraspinal tenderness (slightly improved) on the left greater than right (upper/mid thoracic), Yes thoraco-lumbar spasm bilaterally (trap) in the upper thoracic and in the mid thoracic and on the right greater than left (paraspinal (T12-L5), QL) and Yes misalignment T2, T3, T4, T5, L2, L3, L4, L5 and LIL Sacroiliac joints: bilaterally tender to palpation Office Procedures Procedures - Chiropractic Procedures Manipulation: Cervical C6, Lumbar L3, Thoracic T3 and Pelvis LIL Manipulation: 3-4 regions Patient Response: positive Assessment and Plan Assessment and Plan (1) Back pain: Qualifiers: Back pain location: thoracic back pain Chronicity: acute Back pain laterality: left Qualified Code(s): M54.6 - Pain in thoracic spine (2) Degenerative disc disease, cervical: Status: Acute (3) Segmental and somatic dysfunction of cervical region: Status: Acute (4) Segmental and somatic dysfunction of thoracic region: Status: Acute (5) Segmental and somatic dysfunction of pelvic region: Status: Acute (6) Segmental and somatic dysfunction of lumbar region: Status: Acute (7) DDD (degenerative disc disease): Status: Chronic Qualifiers: Spinal region: thoracic Qualified Code(s): M51.34 - Other intervertebral disc degeneration, thoracic region Orders: Orders Chiropractic Treatments Today M50.30 - Other cervical disc degeneration, unspecified cervical region, M51.34 - Other intervertebral disc degeneration, thoracic region, M54.9 - Dorsalgia, unspecified, M99.01 - Segmental and somatic dysfunction of cervical region, M99.02 - Segmental and somatic dysfunction of thoracic region, M99.03 - Segmental and somatic dysfunction of lumbar region, M99.05 - Segmental and somatic dysfunction of pelvic region Plan Patient was treated without incident. She is showing improvement, following up with PT tomorrow to strengthen postural stabilizers. Plan Details Goals Barriers: Goals Decrease pain Decrease spasm Improve alignment Target Due Date 05/28/22 Barriers DDD Follow Up: PRN Coding Level of Care Code No Charge Diagnoses Back pain M54.6 Back pain location: thoracic back pain Chronicity: acute Back pain laterality: left Degenerative disc disease, cervical M50.30 Segmental and somatic dysfunction of cervical region M99.01 Segmental and somatic dysfunction of thoracic region M99.02 Segmental and somatic dysfunction of pelvic region M99.05 Segmental and somatic dysfunction of lumbar region M99.03 DDD (degenerative disc disease) M51.34 Spinal region: thoracic CPT Codes Procedures - Manipulation: 3-4 regions (02277) 05/07/22 1142 <Electronically signed by Roseline Hutchison D.C.> Date Roseline Hutchison D.C. Cosigner Signature: Date (if applicable) CC: Alanis Lantigua DO Work Phone: Start: 05-02-2022 End: 05-03-2022 Cerv Spine 2 or 3 Views Procedure Note: See Note; NOTES: [facility] Imaging Services [address] [place] [address] Cerv Spine 2 or 3 Views MR#: [id number] Acct: [id number] Name: GUME CARDOZA Rep #: [id number] : 1965 F 56 From: Suzie rodriguez MD PCP: Dr. Alanis Lantigua, DO Status: REG CLI Study: Cerv Spine 2 or 3 Views Date of Exam: 05/02/22 Exam# [id number] Ordering Dr: Roseline Hutchison D.C. HISTORY: neck pain. TECHNIQUE: XR Spine Cervical 2 or 3 Views. COMPARISON: 04/15/2013. FINDINGS: VERTEBRAE: Segmentation anomaly of C3-4 again noted. No acute fracture identified. ALIGNMENT: No significant anterior or posterior subluxation. Preservation of the cervical lordosis. INTERVERTEBRAL DISCS: Rudimentary disc at C3-4. Progression of intervertebral disc space narrowing and endplate change at C4-5, and C5-6. Degenerative endplate changes with intervertebral disc space narrowing again seen at C6-7. SOFT TISSUES: Unremarkable paraspinal soft tissues. RAD/Cerv Spine 2 or 3 Views IMPRESSION: No acute fracture or dislocation identified in the thoracic spine. Multilevel degenerative change, mildly progressed from prior. Electronically Signed: Suzie Andersen MD at 11:19 EDT Reading Location ID and State: [facility] / [place] Tel , Service support , CC: DC Dr. Roseline Hutchison; Dr. Alanis Lantigua DO Business Writer: Signed Alanis Lantigua DO Work Phone: Start: 05-02-2022 End: 05-03-2022 Thoracic Spine 2 Views Procedure Note: See Note; NOTES: [facility] Imaging Services [address] [place] [address] Thoracic Spine 2 Views MR#: [id number] Acct: [id number] Name: GUME CARDOZA Rep #: [id number] : 1965 F 56 From: Suzie rodriguez MD PCP: Dr. Alanis Lantigua DO Status: REG CLI Study: Thoracic Spine 2 Views Date of Exam: 05/02/22 Exam# [id number] Ordering Dr: Roseline Hutchison D.C. HISTORY: Left scapular pain. TECHNIQUE: XR Spine Thoracic 3 Views. COMPARISON: None. FINDINGS: VERTEBRAE: Minimal anterior wedging of T8. ALIGNMENT: No significant anterior or posterior subluxation. INTERVERTEBRAL DISCS: Degenerative endplate changes with osteophytes in the upper to mid thoracic spine. SOFT TISSUES: Unremarkable paraspinal soft tissues. RAD/Thoracic Spine 2 Views IMPRESSION: Minimal chronic appearing compression fracture T8. Degenerative change. Electronically Signed: Suzie Andersen MD at 13:33 EDT , CC: SRIDHAR Hutchison; Dr. Alanis Lantigua DO Business Writer: Signed Alanis Lantigua DO Work Phone: Start: 05-02-2022 End: 05-02-2022 Chiropractic Report Procedure Note: See Note; NOTES: [facility] [address] [place] [address] OFFICE VISIT Date of Service: 05/02/22 MR#: [id number] Acct: [id number] Name: GUME CARDOZA Rep #: [id number] : 1965 Provider: SRIDHAR Dukes Do ssi Age/Sex: 56/F Location: [facility] Status: Signed Intake Vital Signs 04/25/22 15:43 Height 5 ft 5 in Intake Visit Reasons: Back pain Chief Complaint: right shoulder blade pain Is patient in pain?: Yes (shoulder blades) Pain scale (1-10): 2 Allergies codeine Adverse Reaction (Verified 05/02/22 09:16) Rash Penicillins Adverse Reaction (Verified 05/02/22 09:16) Rash Medications calcium carbonate 600 mg calcium (1,500 mg) tablet 1,200 mg PO DAILY 04/19/16 [History Confirmed 05/02/22] cholecalciferol (vitamin D3) 25 mcg (1,000 unit) chewable tablet 2,000 unit PO DAILY 04/19/16 [History Confirmed 05/02/22] magnesium 250 mg tablet 500 mg PO DAILY 04/19/16 [History Confirmed 05/02/22] omega-3 fatty acids 1,000 mg capsule 1,000 mg PO DAILY 03/28/19 [History Confirmed 05/02/22] cyclobenzaprine 10 mg tablet 10 mg PO BID PRN muscle spasm #10 tabs 04/25/22 [Rx Confirmed 05/02/22] fexofenadine 60 mg tablet (Itzel Allergy) 60 mg PO DAILY 04/25/22 [History Confirmed 05/02/22] oxycodone-acetaminophen 5 mg-325 mg tablet (Percocet) 1 tab PO Q6H PRN pain 3 days #10 tabs 04/25/22 [Rx Confirmed 05/02/22] PFSH Medical History Abdominal pain Acute sinusitis, unspecified DFSP Encounter for screening for COVID-19 Surgical History History of neck surgery History of tonsillectomy and adenoidectomy Social History Smoking Status: Never smoker alcohol intake: current Alcohol type: wine HPI Back pain Chief Complaint: left shoulder blade pain Visit Number: 3 Details: Gume is a 56 year old female here for f/u on upper back pain. Pt. rates her upper back pain 2/10 today. She states she aggravated her upper back last week and was seen in the ER as her left scapular region 'froze up' after holding her infant grandson for 4 hours. She has been treating it with ice, TENS, Motrin and stretching with some relief. She states she has been taking it easy and resting. Pt. plays tennis and golf and is usually very active, however has refrained this past week. She reports chiropractic treatments are effective in relieving her pain. Location: back Duration: intermittent Aggravating or associated factors: golf, forward head posture Relieving factors: rest Exam Musc General: Yes normal posture, normal gait, joint tenderness and decreased range of motion; No muscle weakness Cervical Spine: Yes cervical muscular tenderness bilateral lower , Yes pain with cervical ROM with lateral flexion to right, with lateral flexion to left and with anterior flexion, Yes cervical spasm right greater than left lower trapezius and Yes misalignment misalignment: C5, C6 and C7 Thoracic/Lumber: No thoracic and lumbar spine normal to inspection, Yes paraspinal tenderness on the left greater than right (upper/mid thoracic), Yes thoraco-lumbar spasm bilaterally (trap) in the upper thoracic and in the mid thoracic and on the right greater than left (paraspinal (T12-L5), QL) and Yes misalignment T2, T3, T4, T5, L2, L3, L4, L5 and LIL Sacroiliac joints: bilaterally tender to palpation Office Procedures Procedures - Chiropractic Procedures Manipulation: Cervical C6, Lumbar L3, Thoracic T3 and Pelvis LIL Manipulation: 3-4 regions Patient Response: positive Assessment and Plan Assessment and Plan (1) Back pain: Qualifiers: Back pain laterality: left Back pain location: thoracic back pain Chronicity: acute Qualified Code(s): M54.6 - Pain in thoracic spine (2) Degenerative disc disease, cervical: Status: Acute (3) Segmental and somatic dysfunction of cervical region: Status: Acute (4) Segmental and somatic dysfunction of thoracic region: Status: Acute (5) Segmental and somatic dysfunction of pelvic region: Status: Acute (6) Segmental and somatic dysfunction of lumbar region: Status: Acute (7) DDD (degenerative disc disease): Status: Acute Qualifiers: Spinal region: thoracic Qualified Code(s): M51.34 - Other intervertebral disc degeneration, thoracic region Orders: Orders Chiropractic Treatments Today M50.30 - Other cervical disc degeneration, unspecified cervical region, M54.9 - Dorsalgia, unspecified, M99.01 - Segmental and somatic dysfunction of cervical region, M99.02 - Segmental and somatic dysfunction of thoracic region, M99.03 - Segmental and somatic dysfunction of lumbar region, M99.05 - Segmental and somatic dysfunction of pelvic region Cerv Spine 2 or 3 Views Today M50.30 - Other cervical disc degeneration, unspecified cervical region, M99.01 - Segmental and somatic dysfunction of cervical region Thoracic Spine 2 Views Today M62.838 - Other muscle spasm, M99.02 - Segmental and somatic dysfunction of thoracic region Plan Patient was treated without incident. C/T spine xrays were ordered which revealed underlying DDD. Cspine imaging was similar to that of previous study. Patient will begin PT next week and work on scapular stabilization and posterior head translation. Patient Instructions: ROM stretching, chest openers. Avoid rotational sports .Avoid prolonged forward head posture. Plan Details Goals Barriers: Goals Decrease pain Decrease spasm Improve alignment Target Due Date 05/28/22 Barriers DDD Follow Up: 1x/wk Coding Level of Care Code No Charge Diagnoses Back pain M54.6 Back pain laterality: left Back pain location: thoracic back pain Chronicity: acute Degenerative disc disease, cervical M50.30 Segmental and somatic dysfunction of cervical region M99.01 Segmental and somatic dysfunction of thoracic region M99.02 Segmental and somatic dysfunction of pelvic region M99.05 Segmental and somatic dysfunction of lumbar region M99.03 DDD (degenerative disc disease) M51.34 Spinal region: thoracic CPT Codes Procedures - Manipulation: 3-4 regions ([id number]) 05/02/22 1119 <Electronically signed by Roseline Hutchison D.C.> Date Roseline Hutchison D.C. Cosigner Signature: Date (if applicable) CC: Alanis Lantigua DO Work Phone: Start: 04-25-2022 End: 04-25-2022 Emergency Department Summary Procedure Note: See Note; NOTES: [facility] Medical Records Department [address] [place] [address] Emergency Department Summary 04/25/22 MR#: [id number] Acct: [id number] Name: GUME CARDOZA Rep #: [id number] : 1965 56 From: Judd Montgomery MD PCP: Dr. Alanis Lantigua, DO Status:[facility] ER Location: ED HPI History of Present Illness Chief Complaint: Back Informant: patient and spouse/S.O. Narrative Narrative: Patient presents with spasm around her right scapular area and lower left neck. She states she has a history of problems like this. She commonly has them in her lower back. She uses a tens unit frequently. This episode was exacerbated when she played a very hard match of tennis on Saturday. She had a lot of right-sided spasm around the shoulder and neck. She used her TENS unit and that helped. She also does a lot of sports activities, trampoline which she now has stopped using, and golf. Today she was feeling better from the right-sided spasm. She went and took care of her very young grandchild is only about 5 weeks old. She was holding the child and looking down. She now has spasm on the left side. No chest pain. No trouble breathing. No recent travel surgery or immobilization personal or family history of DVT or PE. No numbness tingling weakness. She states it hurts to move her up to spasm on its own. Most of it is above and medial to the scapula on the left. No distal symptoms. No radicular symptoms. She occasionally tries Motrin for this. Generally does not take meds. Of note, she has an allergy to codeine but states she has had pain meds since. That was decades ago and she does not think it is accurate. [facility] Medical History Abdominal pain Acute sinusitis, unspecified DFSP Encounter for screening for COVID-19 Home Medications calcium carbonate 600 mg calcium (1,500 mg) tablet 1,200 mg PO DAILY 04/19/16 [History Last Taken Unknown] cholecalciferol (vitamin D3) 25 mcg (1,000 unit) chewable tablet 2,000 unit PO DAILY 04/19/16 [History Last Taken Unknown] magnesium 250 mg tablet 500 mg PO DAILY 04/19/16 [History Last Taken Unknown] omega-3 fatty acids 1,000 mg capsule 1,000 mg PO DAILY 03/28/19 [History Last Taken Unknown] cyclobenzaprine 10 mg tablet 10 mg PO BID PRN muscle spasm #10 tabs 04/25/22 [Rx Last Taken Unknown] fexofenadine 60 mg tablet (Itzel Allergy) 60 mg PO DAILY 04/25/22 [History Last Taken Unknown] oxycodone-acetaminophen 5 mg-325 mg tablet (Percocet) 1 tab PO Q6H PRN pain 3 days #10 tabs 04/25/22 [Rx Last Taken Unknown] Allergy/AdvReac Type Severity Reaction Status Date / Time codeine AdvReac Rash Verified 04/25/22 16:13 Penicillins AdvReac Rash Verified 04/25/22 16:13 Surgical History History of neck surgery History of tonsillectomy and adenoidectomy Social History Smoking Status: Never smoker alcohol intake: current Alcohol type: wine ROS ROS ED Constitutional Constitutional ED: Denies chills or fever(s) Eyes Eyes: Denies change in vision ENT ENT ED: Denies rhinorrhea or sore throat Cardiovascular Cardiovascular: Denies chest pain, palpitations or racing heartbeat Respiratory/Chest Respiratory/Chest: Denies cough, dyspnea, dyspnea on exertion or sputum Gastrointestinal Gastrointestinal: Denies abdominal pain, nausea or vomiting Musculoskeletal Musculoskeletal: Reports myalgias, neck pain and other Details: See history of present illness peer Integumentary Denies Abrasions or rash Neurologic Neurologic: Denies headache(s), paresthesias or weakness Endocrine Endocrinology: Denies polydipsia or polyuria Allergic/Immunologic Allergic/Immunologic ED: Denies urticaria EXAM Physical Exam Const Vital Signs: 04/25/22 15:43 04/25/22 16:17 Temperature 97.2 F L Temperature Source Temporal Pulse Rate 93 100 Respiratory Rate 16 20 H Blood Pressure 144/95 H 143/97 H Blood Pressure Mean 111 112 Pulse Ox 100 98 Oxygen Delivery Method Room Air Room Air Positive well nourished and well developed General Appearance ED: well developed and NAD; Negative for cyanotic or diaphoretic HEENT Negative for trauma Eyes PERRL General Eye ED: Negative for scleral icterus Neck Neck Narrative: Patient has some mild paraspinal tenderness very low on the left side of the neck. No central bony tenderness though. Slight discomfort with motion of the neck. Chest Wall inspection of chest normal Chest Narrative: Patient has muscular tenderness supraspinatus and trapezius muscles on the left. I can move her glenohumeral joint without problems. But moving the scapula causes discomfort. There is no swelling. Resp normal respiratory effort and clear to auscultation bilaterally Resp Narrative: Patient can actually take deep breaths without problems. Her lungs are clear. Cardio regular rate and regular rhythm Extremity normal to inspection Extremity Narrative: No distal swelling. No pain with motion of the glenohumeral, elbow wrist or hand. Normal pulses and sensation distally Neuro Neuro Narrative: No numbness tingling or weakness. Sensorium / Orientation: alert Psych mental status grossly normal Skin no rashes or lesions noted MDM MDM MDM Narrative Medical decision making narrative: At first, patient did not get a lot of pain relief at about the 30-minute time period. We then added Toradol. She states now that is finally eased off. She is able to move. She is able to lean back. She is feeling better. She has not developed chest pain trouble breathing numbness tingling or any other symptoms. Not syncopal or presyncopal. Patient still has some mild paraspinal tenderness that reproduces it. Normal pulses and strength. With discussion about imaging or work-up. We all agree that this is very musculoskeletal in nature. It is improving with therapy. We discussed symptoms that would bring her back for further evaluation. 's unit back on the area because that seemed to initiate some of this. She should avoid heat and use ice. Discharge Plan Triage Chief Complaint: Back ED Provider: Judd Montgomery Dx/Rx/DC Orders Clinical Impression: Periscapular pain, Muscle spasm Instructions: ED Muscle Spasm Prescriptions: New cyclobenzaprine 10 mg tablet 10 mg PO BID PRN (Reason: muscle spasm) Qty: 10 0RF oxycodone-acetaminophen [Percocet] 5-325 mg tablet 1 tab PO Q6H PRN (Reason: pain) 3 Days Qty: 10 0RF No Action omega-3 fatty acids 1,000 mg capsule 1,000 mg PO DAILY calcium carbonate 600 MG tablet 1,200 mg PO DAILY magnesium 250 MG tablet 500 mg PO DAILY cholecalciferol (vitamin D3) 1,000 UNIT tablet,chewable 2,000 unit PO DAILY fexofenadine [Itzel Allergy] 60 mg Tablet 60 mg PO DAILY Primary Care Provider: Alanis Lantigua Referrals: Alanis Lantigua DO [Primary Care Provider] - 1-2 Days if not improving Disposition Disposition: Home, Self Care What to do if you have Problems For any increased pain, shortness of breath, bleeding, nausea or vomiting, chest pain, or any unexpected problems, contact your Primary Care Provider. Call [facility] ([phone]) or report to the closest Emergency Room. Call 911 if necessary. 04/25/22 7368 <Electronically signed by Judd Montgomery MD> Cosigner Signature (if applicable): CC: Dr. Alanis Lantigua DO Signed Alanis Lantigua DO Work Phone: Start: 04-23-2022 End: 04-23-2022 Chiropractic Report Procedure Note: See Note; NOTES: [facility] [address] [id number] OFFICE VISIT Date of Service: 04/23/22 MR#: [id number] Acct: [id number] Name: GUME CARDOZA Rep #: [id number] : 1965 Provider: SRIDHAR Fatima Age/Sex: 56/F Location: [facility] Status: Signed Intake Intake Visit Reasons: Back pain Chief Complaint: right shoulder blade pain Is patient in pain?: Yes (left shoulder blade ) Pain scale (1-10): 4 Allergies codeine Adverse Reaction (Verified 04/23/22 11:34) Rash Penicillins Adverse Reaction (Verified 04/23/22 11:34) Rash Medications calcium carbonate 600 mg calcium (1,500 mg) tablet 1,200 mg PO DAILY 04/19/16 [History Confirmed 04/23/22] cholecalciferol (vitamin D3) 25 mcg (1,000 unit) chewable tablet 2,000 unit PO DAILY 04/19/16 [History Confirmed 04/23/22] magnesium 250 mg tablet 500 mg PO DAILY 04/19/16 [History Confirmed 04/23/22] cetirizine 10 mg capsule (Zyrtec) 10 mg PO DAILY 03/28/19 [History Confirmed 04/23/22] omega-3 fatty acids 1,000 mg capsule 1,000 mg PO DAILY 03/28/19 [History Confirmed 04/23/22] doxycycline monohydrate 100 mg capsule 100 mg PO BID #20 caps 05/03/21 [Rx Confirmed 04/23/22] PFSH Medical History Abdominal pain Acute sinusitis, unspecified DFSP Encounter for screening for COVID-19 Surgical History History of neck surgery History of tonsillectomy and adenoidectomy Social History Smoking Status: Never smoker alcohol intake: current Alcohol type: wine HPI Back pain Chief Complaint: right shoulder blade pain Visit Number: 2 Details: Gume is a 56 year old female here for f/u on low back pain. Pt. states her low back pain has improved since her last adjustment. She states she aggravated her right shoulder blade golfing and rates her shoulder pain 4/10. She reports it has been 'clicking' often. She has been treating it with heat, TENS, Motrin and stretching with some relief. She states she has noticed limited ROM while she is golfing swinging her club. Pt. also plays tennis and is very is active.? She denies injury but does have some occasional numbness and tingling in her hands when she first wakes up in the morning. She reports chiropractic treatments have been effective in the past. Location: back Duration: intermittent Aggravating or associated factors: golf Relieving factors: rest Exam Musc General: Yes normal posture, normal gait, joint tenderness and decreased range of motion; No muscle weakness Cervical Spine: Yes cervical muscular tenderness, Yes pain with cervical ROM with lateral flexion to right and with lateral flexion to left, Yes cervical spasm right greater than left lower trapezius and Yes misalignment misalignment: C5, C6 and C7 Thoracic/Lumber: No thoracic and lumbar spine normal to inspection, Yes paraspinal tenderness on the right greater than left (upper thoracic/lumbar), Yes thoraco-lumbar spasm bilaterally (trap) in the upper thoracic and in the mid thoracic and on the right greater than left (paraspinal (T12-L5), QL) and Yes misalignment T2, T3, T4, T5, L2, L3, L4, L5 and LIL Sacroiliac joints: bilaterally tender to palpation Office Procedures Procedures - Chiropractic Procedures Manipulation: Cervical C6, Lumbar L3, Thoracic T3 and Pelvis LIL Manipulation: 3-4 regions Patient Response: positive Assessment and Plan Assessment and Plan (1) Back pain: (2) Degenerative disc disease, cervical: Status: Acute (3) Segmental and somatic dysfunction of cervical region: Status: Acute (4) Segmental and somatic dysfunction of thoracic region: Status: Acute (5) Segmental and somatic dysfunction of pelvic region: Status: Acute (6) Segmental and somatic dysfunction of lumbar region: Status: Acute Orders: Orders Chiropractic Treatments Today M50.30 - Other cervical disc degeneration, unspecified cervical region, M99.01 - Segmental and somatic dysfunction of cervical region, M99.02 - Segmental and somati c dysfunction of thoracic region, M99.03 - Segmental and somatic dysfunction of lumbar region, M99.05 - Segmental and somatic dysfunction of pelvic region Plan Patient was treated without incident. Continue care. Plan Details Goals Barriers: Goals Decrease pain Decrease spasm Improve alignment Target Due Date 05/07/22 Barriers DDD Follow Up: 2 Weeks Coding Level of Care Code No Charge Diagnoses Back pain M54.9 Degenerative disc disease, cervical M50.30 Segmental and somatic dysfunction of cervical region M99.01 Segmental and somatic dysfunction of thoracic region M99.02 Segmental and somatic dysfunction of pelvic region M99.05 Segmental and somatic dysfunction of lumbar region M99.03 CPT Codes Procedures - Manipulation: 3-4 regions (20989) 04/23/22 1429 <Electronically signed by Roseline Hutchison D.C.> Date Roseline Hutchison D.C. Cosigner Signature: Date (if applicable) CC: Alanis Lantigua DO Work Phone: Start: 04-09-2022 End: 04-09-2022 Chiropractic Report Procedure Note: See Note; NOTES: [facility] [address] [place], [place] [phone] OFFICE VISIT Date of Service: 04/09/22 MR#: [id number] Acct: [id number] Name: GUME CARDOZA Rep #: [id number] : 1965 Provider: SRIDHAR Fatima Age/Sex: 56/F Location: [facility] Status: Signed Intake Vital Signs 03/14/22 09:01 04/09/22 09:46 Height 5 ft 5 in 5 ft 5 in Weight: 122 lb 6 oz BMI 20.3 BP 122/78 H Intake Visit Reasons: REEVAL LBP Chief Complaint: low back apin Allergies codeine Adverse Reaction (Verified 04/09/22 09:47) Rash Penicillins Adverse Reaction (Verified 04/09/22 09:47) Rash Medications calcium carbonate 600 mg calcium (1,500 mg) tablet 1,200 mg PO DAILY 04/19/16 [History Confirmed 03/28/19] cholecalciferol (vitamin D3) 25 mcg (1,000 unit) chewable tablet 2,000 unit PO DAILY 04/19/16 [History Confirmed 03/28/19] magnesium 250 mg tablet 500 mg PO DAILY 04/19/16 [History Confirmed 03/28/19] cetirizine 10 mg capsule (Zyrtec) 10 mg PO DAILY 03/28/19 [History Confirmed 03/28/19] omega-3 fatty acids 1,000 mg capsule 1,000 mg PO DAILY 03/28/19 [History Confirmed 03/28/19] doxycycline monohydrate 100 mg capsule 100 mg PO BID #20 caps 05/03/21 [Rx Confirmed 05/03/21] PFSH Medical History Abdominal pain Acute sinusitis, unspecified DFSP Encounter for screening for COVID-19 Surgical History History of neck surgery History of tonsillectomy and adenoidectomy Social History Smoking Status: Never smoker alcohol intake: current Alcohol type: wine HPI REEVAL LBP Chief Complaint: low back pain Visit Number: 1 Details: Gume is a 56 year old female here for re-evaluation of low back pain. Pt. states her low back has been bothersome over the past couple months. Last Saturday her low back was painful and was radiating up the right side of her back to her neck. She has been treating it with heat, TENS, Motrin and stretching with some relief. She states she has noticed limited ROM while she is golfing swinging her club. Pt. also plays tennis and is very is active. She has also experienced her back 'catching' when standing too long. Her low back pain is aggravated with prolonged sitting. She denies injury but does have some occasional numbness and tingling in her hands when she first wakes up in the morning. She reports chiropractic treatments have been effective in the past. Location: back Duration: frequent Aggravating or associated factors: sitting, standing Relieving factors: chiro Pain Quality: aching and dull Current Sensation: catching Exam Musc General: Yes normal posture, normal gait, joint tenderness and decreased range of motion; No muscle weakness Cervical Spine: Yes cervical muscular tenderness right greater than left diffuse , Yes pain with cervical ROM with lateral flexion to right and with lateral flexion to left, Yes cervical spasm right greater than left lower trapezius and Yes misalignment misalignment: C5, C6 and C7 Thoracic/Lumber: No thoracic and lumbar spine normal to inspection, Yes straight leg raise negative bilaterally, Yes Lasegue's sign positive on the right, Yes pain with thoraco-lumbar ROM with rotatio n to the right and with rotation to the left, Yes paraspinal tenderness on the right greater than left (upper thoracic/lumbar), Yes thoraco-lumbar ROM limited with rotation to the right and with rotation to the left, Yes thoraco-lumbar spasm bilaterally (trap) in the upper thoracic and in the mid thoracic and on the right greater than left (paraspinal (T12-L5), QL) and Yes misalignment T2, T3, T4, T5, L2, L3, L4, L5 and LIL Sacroiliac joints: bilaterally tender to palpation Office Procedures Procedures - Chiropractic Procedures Manipulation: Cervical C6, Lumbar L3, Thoracic T3 and Pelvis LIL Manipulation: 3-4 regions Traction, Mechanical: Yes Patient Response: positive Assessment and Plan Assessment and Plan (1) Degenerative disc disease, cervical: Status: Acute (2) Segmental and somatic dysfunction of cervical region: Status: Acute (3) Segmental and somatic dysfunction of thoracic region: Status: Acute (4) Segmental and somatic dysfunction of pelvic region: Status: Acute (5) Segmental and somatic dysfunction of lumbar region: Status: Acute Orders: Orders Chiropractic Treatments Today M50.30 - Other cervical disc degeneration, unspecified cervical region, M99.01 - Segmental and somatic dysfunction of cervical region, M99.02 - Segmental and somatic dysfunction of thoracic region, M99.03 - Segmental and somatic dysfunction of lumbar region, M99.05 - Segmental and somatic dysfunction of pelvic region Plan Patient was re-evaluated and treated without incident. Follow up in 2 weeks and monitor. Patient Instructions: Ice at night 20min, decrease rebounding, increase core strengthening. Plan Details Goals Barriers: Goals Decrease pain Decrease spasm Improve alignment Target Due Date 05/07/22 Barriers DDD Coding Level of Care Code Off vis,est,level 2 Diagnoses Degenerative disc disease, cervical M50.30 Segmental and somatic dysfunction of cervical region M99.01 Segmental and somatic dysfunction of thoracic region M99.02 Segmental and somatic dysfunction of pelvic region M99.05 Segmental and somatic dysfunction of lumbar region M99.03 CPT Codes Procedures - Manipulation: 3-4 regions (28394) Procedures - Traction, Mechanical: Yes ([id number]) 04/09/22 1043 <Electronically signed by Roseline Hutchison D.C.> Date Roseline Hutchison D.C. Cosigner Signature: Date (if applicable) CC: Alanis Lantigua DO Work Phone: Start: 03-14-2022 End: 03-14-2022 Dexa Bone Density Study Procedure Note: See Note; NOTES: [facility] Imaging Services [address] [place] [address] Dexa Bone Density Study MR#: [id number] Acct: [id number] Name: GUME CARDOZA Rep #: [id number] : 1965 F 56 From: Juan Jose vargas MD PCP: Dr. Alanis Lantigua DO Status: [facility] CLI Study: Dexa Bone Density Study Date of Exam: 03/14/22 Exam# [id number] Ordering Dr: Alanis Lantigua DO STUDY: DUAL ENERGY X-RAY ABSORPTIOMETRY / DXA REASON FOR EXAM: Female, 56 years old. Z780. The patient is postmenopausal. TECHNIQUE: Bone Mineral Density (BMD) measurements of lumbar spine and bilateral hips were obtained. COMPARISON: Comparison is made with prior study dated 09/10/2017. FINDINGS: Lumbar Spine (L1-L4): g/cm2 (0.973) / T-score (-0.7) / Z-score (0.5) Findings are suggestive of normal bone density with a low fracture risk. Left Femur Total: g/cm2 (0.877) / T-score (-0.5) / Z-score (0.2) Left Femoral Neck: g/cm2 (0.769) / T-score (-0.7) / Z-score (0.4) Right Femur Total: g/cm2 (0.947) / T-score (0.0) / Z-score (0.8) Right Femoral Neck: g/cm2 (0.840) / T-score (-0.1) / Z-score (1.0) The T-Scores on the most recent prior examination were: Lumbar Spine (L1-L4): There has been worsening of bone density since the previous examination. Left Femur Total: which represents a worsening of 3.8%. Right Femur Total: which represents an improvement of 0.2%. BD/Dexa Bone Density Study IMPRESSION: The patient is considered normal as outlined below according to World Bhanu Organization (WHO) criteria with a low fracture risk. There has been worsening of bone density since the previous examination. Reference Information: The T-score is the number of standard deviations above or below the standard which is normal for young adults at their peak bone mineral density. The World Health Organization (WHO) interprets the T-scores as follows: Above -1 Normal bone density Between -1 and -2.5 Osteopenia Equal to / or below -2.5 Osteoporosis As a practical clinical guideline, osteopenia may be graded as follows: Mild -1 through -1.5 Moderate -1.6 through -2.0 Severe -2.1 through -2.4 The Z-score is the number of standard deviations above or below age-matched controls. A Z-score of less than -1.5 would be considered abnormal. References: 1. NIH Osteoporosis and Related Bone Diseases www osteo.org 2. International Society for Clinical Densitometry www iscd.org 3. National Osteoporosis Foundation www nof.org Electronically Signed: Juan Jose Baker MD at 12:20 EDT Reading Location ID and State: [facility] / [place] , Service support , CC: Dr. Alanis Lantigua DO Business Writer: Signed Alanis Lantigua DO Work Phone: Start: 02-06-2022 End: 02-06-2022 SCRN MAMM (CAD)W/LEISA BILAT Procedure Note: See Note; NOTES: [facility] Imaging Services [address] [facility] [place] [address] SCRN MAMM (CAD)W/LEISA BILAT MR#: [id number] Acct: [id number] Name: GUME CARDOZA Rep #: [id number] : 1965 F 56 From: Juan Jose vargas MD PCP: Dr. Alanis Lantigua, Status: REG CLI Study: SCRN MAMM (CAD)W/LEISA BILAT Date of Exam: 01/13 01/03 Exam# [id number] Ordering Dr: Nika Alvarez MD MAMMOGRAPHY - BILATERAL SCREENING REASON FOR EXAM: Female, 56 years old. Routine annual screening examination. PERTINENT HISTORY: Sister with breast cancer. Prior right stereotactic breast biopsy. TECHNIQUE: Digital bilateral breast leisa (3D mammographic acquisition) in the CC and MLO projections. 2-D mediolateral oblique (MLO) and craniocaudad (CC) views of both breasts were obtained. CAD: Full Field Digital Mammography with Computer Added Detection was performed. COMPARISON: Comparison is made with prior study dated 12/19/2020 and 12/14/2019. FINDINGS: Breast Composition: The breasts are extremely dense, which lowers the sensitivity of mammography. There are no dominant masses or suspicious calcifications. A tissue clip marker is once again seen in the upper deep lateral aspect of the right breast. No other significant abnormalities are identified. There has been no significant change since the prior study. BI/SCRN MAMM (CAD)W/LEISA BILAT IMPRESSION: Stable bilateral screening mammogram. Yearly follow-up mammogram recommended. (A) ASSESSMENT CATEGORY: BIRADS Category 2: Benign. A letter regarding these results will be sent to the patient by the facility within 30 days. Approximately 10% of breast cancers are not detected by mammography. A normal mammogram should not delay biopsy of a clinically suspicious abnormality. [id number] Electronically Signed: Juan Jose Baker MD at 13:40 EDT Reading Location ID and State: [address] [place] [address] , Service support , CC: Dr. Nika Alvarez MD; Dr. Alanis Lantigua DO Business Writer: Signed Alanis Lantigua DO Work Phone: Start: 11-01-2021 End: 11-02-2021 Transvaginal Non- Comments: See Note; NOTES: [facility] Imaging Services [address] [place] [id number] Transvaginal Non- MR#: [id number] Acct: [id number] Name: GUME CARDOZA Rep #: [id number] : 1965 F 56 From: Hadley Uribe MD PCP: Dr. Alanis Lantigua DO Status: REG CLI Study: Transvaginal Non- Date of Exam: Exam# [id number] Ordering Dr: Alanis Lantigua DO STUDY: ULTRASOUND OF THE FEMALE PELVIS - COMPLETE REASON FOR EXAM: Female, 56 years old. PELVIC PAIN-RIGHT- FOR 6-8 WEEKS -- HX OF D and amp;C 95,98 LMP: TECHNIQUE: TECHNICAL QUALITY: Adequate. COMPARISON: None. FINDINGS: The uterus is anteverted and is in a midline position. The uterus measures 6.48 cm. Normal uterine cervix. The endometrium measures 3.5 mm in thickness, and is homogenous.. There is no demonstrated endometrial mass. There is no demonstrated myometrial mass. I.U.D. - The patient does not have an I.U.D. The right ovary is visualized. The right ovary measures 2.36 x 1.37 cm. There is a right ovarian cyst measuring 1.09 cm. There is no visualized right adnexal mass or complex lesion. There is normal arterial and normal venous vascularity. The left ovary is visualized. The left ovary measures 2.02 x 0.85 cm. There is no left ovarian cyst or ovarian mass. There is no visualized left adnexal mass or complex lesion. There is normal arterial and normal venous vascularity. There is no fluid in the cul-de-sac. The pre void volume of the bladder was ml. The post void volume of the bladder was ml. Polycystic ovary disease: No. US/Transvaginal Non- IMPRESSION: Normal female pelvis. Electronically Signed: Hadley Uribe MD at 1:58 EDT , CC: Dr. Alanis Lantigua DO Business Writer: Signed Alanis Lantigua DO Work Phone: Start: 11-01-2021 End: 11-02-2021 Pelvic (Non ) Comments: See Note; NOTES: [facility] Imaging Services [address] [place] [id number] Pelvic (Non ) MR#: [id number] Acct: [id number] Name: GUME CARDOZA Rep #: [id number] : 1965 F 56 From: Hadley Uribe MD PCP: Dr. Alanis Lantigua DO Status: REG CLI Study: Pelvic (Non ) Date of Exam: 11/01/21 Exam# [id number] Ordering Dr: Alanis Lantigua DO STUDY: ULTRASOUND OF THE FEMALE PELVIS - COMPLETE REASON FOR EXAM: Female, 56 years old. PELVIC PAIN-RIGHT- FOR 6-8 WEEKS -- HX OF D and amp;C 95,98 LMP: TECHNIQUE: TECHNICAL QUALITY: Adequate. COMPARISON: None. FINDINGS: The uterus is anteverted and is in a midline position. The uterus measures 6.48 cm. Normal uterine cervix. The endometrium measures 3.5 mm in thickness, and is homogenous.. There is no demonstrated endometrial mass. There is no demonstrated myometrial mass. I.U.D. - The patient does not have an I.U.D. The right ovary is visualized. The right ovary measures 2.36 x 1.37 cm. There is a right ovarian cyst measuring 1.09 cm. There is no visualized right adnexal mass or complex lesion. There is normal arterial and normal venous vascularity. The left ovary is visualized. The left ovary measures 2.02 x 0.85 cm. There is no left ovarian cyst or ovarian mass. There is no visualized left adnexal mass or complex lesion. There is normal arterial and normal venous vascularity. There is no fluid in the cul-de-sac. The pre void volume of the bladder was ml. The post void volume of the bladder was ml. Polycystic ovary disease: No. US/Pelvic (Non ) IMPRESSION: Normal female pelvis. Electronically Signed: Hadley Uribe MD at 1:58 EDT , CC: DR.AMELIA RAMIREZ; Dr. Alanis Lantigua DO Business Writer: Signed Alanis Lantigua DO Work Phone: Start: 05-24-2021 End: 05-24-2021 Chest PA and Lateral Comments: See Note; NOTES: [facility] Imaging Services [address] [place] [address] Chest PA and Lateral MR#: [id number] Acct: [id number] Name: GUME CARDOZA Rep #: [id number] : 1965 F 55 From: Narayan Rose DO PCP: Dr. Alains Lantigua DO Status: REG CLI Study: Chest PA and Lateral Date of Exam: 05/24/21 Exam# [id number] Ordering Dr: Alanis Lantigua DO STUDY: X-RAY CHEST REASON FOR EXAM: Female, 55 years old. ABNORMAL LUNG SOUNDS, COUGH TECHNIQUE: Frontal and lateral views COMPARISON: 04/11/2012. FINDINGS: The lungs are clear and expanded. There is no demonstrated pleural abnormality. Normal size heart. Normal mediastinum and roxann. Normal visualized pulmonary arteries. Normal visualized aortic arch and descending thoracic aorta. Normal visualized thoracic spine. Normal visualized ribs, clavicles, and shoulders. There is no demonstrated abnormality of the visualized soft tissue structures of the upper abdomen. RAD/Chest PA and Lateral IMPRESSION: Normal x-ray examination of the chest. Electronically Signed: Narayan Rose DO at 17:16 EST Tel [phone], Service support , CC: Dr. Alanis Lantigua DO Business Writer: Signed Alanis Lantigua DO Work Phone: Start: 05-03-2021 End: 05-10-2021 Urgent Care Visit Report Comments: See Note; NOTES: [facility] [address] [place] [id number] OFFICE VISIT Date of Service: 05/03/21 MR#: [id number] Acct: [id number] Name: GUME CARDOZA Rep #: [id number] : 1965 Provider: ISMA zamudio Age/Sex: 55/F Location: [facility] Status: Signed Intake Vital Signs 05/03/21 08:49 BP 118/74 Blood Pressure Location Lt brachial Position Sitting Respiration 16 Pulse 96 Pulse Source Monitor Temp 97.3 F L Temp Source Temporal Pulse Oximetry (%) 98 Oxygen Delivery Method room air Intake Visit Reasons: Sore throat Chief Complaint: uti Allergies codeine Adverse Reaction (Verified 03/25/20 13:03) Rash Penicillins Adverse Reaction (Verified 03/25/20 13:03) Rash [facility] Medical History (Updated 05/03/21 @ 10:27 by Delvis ASHBY, ISMA) Abdominal pain Acute sinusitis, unspecified DFSP Encounter for screening for COVID-19 Surgical History (System 03/25/20 @ 13:03 by Susan Jacob) History of neck surgery History of tonsillectomy and adenoidectomy Social History (System 03/25/20 @ 13:03 by Susan Jacob) Smoking Status: Never smoker alcohol intake: current Alcohol type: wine HPI HPI Chief Complaint: uti Details: GUME CARDOZA, is a 55 F who presents to the office today for 4-5 day h/o sore raw throat/ hoarse voice, bilateral earache, post nasal drip, forehead pressure. She also describes nonspecific RLQ discomfort; no change in bowel/ bladder fucntion. 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 No chills, cough, AGOSTO, fatigue, sore throat, congestion, runny nose, n/v/d. No otc products taken to assist. COVID19 vaccine completed >2wks ago. Nonsmoker. ROS Const Constitutional: No other (as above) Exam Const General: cooperative, healthy appearing, uncomfortable and no acute distress Nutritional Appearance: average body habitus and well nourished Orientation: alert, awake and oriented x3 [facility] Head: normal to inspection Ears: hearing grossly normal bilaterally, external ears normal, TM's normal bilaterally and EAC's normal Nose: external nose normal, nares normal, septum normal and nasal discharge clear (trace) Face and sinus: normal facial exam, face symmetric and sinus tenderness frontal and ethmoid; not maxillary Mouth: oral mucosae normal, lip normal, tongue normal and moist mucous membranes Throat: posterior oropharynx normal, uvula midline and postnasal drainage (scant purulent) Eyes General: appearance normal, both eyes and all related structures Neck Neck: normal visual inspection, full ROM, no meningeal signs, supple and lymphadenopathy (Lateral anterior shoulder no swelling/tender to palpation.) Neck mass: No Thyroid: thyroid normal Chest Chest palpation inspection: normal inspection of the chest Resp Effort Inspection: normal respiratory effort, able to speak in complete sentences, symmetric chest movement and no cough Auscultation: Bilateral: Clear to Auscultation Cardio Palpation: normal PMI Rate: regular rate Rhythm: regular rhythm Heart Sounds: S1 normal, S2 normal, no gallops, no murmurs and no rubs Pulses: radial pulses present GI Inspection: normal to inspection Palpation: soft, no hepatosplenomegaly, no guarding, no masses and nontender Skin General: no rashes or lesions noted Neuro General: patient alert, patient awake, patient oriented x3 and gait normal Cognition: normal cognition Speech: speech normal Gait: normal gait Motor: muscle tone normal throughout Sensory Exam: no sensory deficits noted Psych Appearance: grossly normal Mental Status: mental status grossly normal Mood: congruent mood Affect: normal affect Speech and Movement: speech and movement normal Attitude: cooperative Thought Process: normal Thought Content: normal Judgment: judgment good Coding Level of Care Code Off vis,new,level 3 Diagnoses Sore throat J02.9 Acute sinusitis, unspecified J01.90 Encounter for screening for COVID-19 Z11.52 Abdominal pain R10.9 Assessment and Plan Assessment and Plan (1) Sore throat: (2) Acute sinusitis, unspecified: Status: Acute (3) Encounter for screening for COVID-19: Status: Acute (4) Abdominal pain: Status: Acute Orders: Orders: COVID 19, PCR [facility](RT COLLECT) Today Z11.52 Plan - Delvis ASHBY, PA: Nasopharyngeal swab obtained for send out for COVID-19 screening; patient aware we will contact them once results are available. Supportive measures and self-isolation until results of above test known. Amoxicillin as prescribed today, to initiate in 3-5 days should symptoms not improve/ worsen or other concerns develop. Follow-up with PCP in 3-5 days after initiating antibiotics should symptoms not improve, sooner should symptoms worsen or any other concerns develop. Patient states acknowledging understanding all the above. This note was generated with [employer] software. It may contain incorrect words, spelling, and punctuation that were not noted in checking the note before signing. Plan Details Other Medications: New: doxycycline monohydrate hold calcium and magnesium supplements while on this medication 100 mg PO BID 20 caps 0RF Goals Barriers: Goals Decrease pain and radiculopathy Decrease parasthesia Barriers DDD 05/03/21 1028 <Electronically signed by Delvis ASHBY> Date Delvis ASHBY Cosigner Signature: Date (if applicable) CC: Alanis Lantigua DO Work Phone: Start: 01-12-2021 End: 01-16-2021 Breast Bilateral W/O and W Comments: See Note; NOTES: [facility] Imaging Services [address] [place] [address] Breast Bilateral W/O and W MR#: [id number] Acct: [id number] Name: GUME CARDOZA Branden Rep #: [id number] : 1965 F 55 From: Vishnu Franco MD PCP: Dr. Alanis Lantigua DO Status: REG CLI Study: Breast Bilateral W/O and W Date of Exam: 01/12 Exam# [id number] Ordering Dr: Nika Alvarez MD STUDY: BILATERAL BREAST MR WITHOUT AND WITH CONTRAST REASON FOR EXAM: Female, 55 years old. Dense breast tissue. History of sister with breast cancer. History of prior right stereotactic breast biopsy. TECHNIQUE: Multi-sequence multi-echo imaging of both breasts was performed with a dedicated breast coil. T1-weighted and T2-weighted images were performed before the administration of contrast. T1-weighted images were also performed after the administration of Dotarem 10ml IV without complications. COMPARISON: 12/19/2020, 12/14/2019. FINDINGS: RIGHT BREAST: The breast tissue is heterogeneously dense with minimal background enhancement. There are no abnormal enhancing masses or areas of non-mass enhancement in the right breast. LEFT BREAST: The breast tissue is heterogeneously dense with minimal background enhancement. There are no abnormal enhancing masses or areas of non-mass enhancement in the left breast. There are no enlarged or abnormal lymph nodes. There is no abnormality in the visualized regions of the chest or liver. MRI/Breast Bilateral W/O and W IMPRESSION: No abnormality on the breast MRI examination with contrast. Annual screening mammogram recommended. CATEGORY: BIRADS Category 1: Negative. A letter regarding these results will be sent to the patient by the facility within 30 days. Electronically Signed: Vishnu Franco MD at 10:10 EDT , Service support , CC: Dr. Nika Alvarez MD; Dr. Alanis Lantigua DO Business Writer: Signed Alanis Lantigua DO Work Phone: Start: 01-12-2021 End: 01-12-2021 Pelvic (Non ) Comments: See Note; NOTES: [facility] Imaging Services [address] [place] [address] Pelvic (Non ) MR#: [id number] Acct: [id number] Name: GUME CARDOZA Rep #: [id number] : 1965 F 55 From: Juan Jose vargas MD PCP: Dr. Alanis Lantigua, DO Status: REG CLI Study: Pelvic (Non ) Date of Exam: 01/12/21 Exam# [id number] Ordering Dr: Nika Alvarez MD STUDY: ULTRASOUND OF THE FEMALE PELVIS - COMPLETE REASON FOR EXAM: Female, 55 years old. POST MEN BLEEDING LMP: Patient is postmenopausal. TECHNIQUE: Transabdominal and Transvaginal TECHNICAL QUALITY: Adequate. COMPARISON: Comparison is made with prior examination dated 10/30/2018. FINDINGS: The uterus is anteverted and is in a midline position. The uterus measures 7.5 cm x 4 cm x 3.4 cm. There is a Nabothian cyst of the cervix. The endometrium measures 3.1 mm in thickness, and is hyperechoic. There is no demonstrated endometrial mass. The uterus is of heterogeneous echotexture. No focal fibroid is seen. I.U.D. - The patient does not have an I.U.D. The right ovary is visualized. The right ovary measures 2.4 cm x 1.6 cm x 1.3 cm. Small follicles are seen within the ovary. There is no visualized right adnexal mass or complex lesion. There is normal arterial and normal venous vascularity. The left ovary is visualized. The left ovary measures 2 cm x 1.1 cm x 1.4 cm. There is no left ovarian cyst or ovarian mass. There is no visualized left adnexal mass or complex lesion. There is normal arterial and normal venous vascularity. There is minimal fluid in the cul-de-sac. The pre void volume of the bladder was 714 ml. US/Pelvic (Non ) IMPRESSION: Heterogeneous appearance of the uterus although no focal fibroid is seen. Electronically Signed: Juan Jose Baker MD at 15:08 EDT , Service support , CC: Dr. Nika Alvarez MD; Dr. Alanis Lantigua DO Business Writer: Signed Alanis Lantigua DO Work Phone: Start: 01-12-2021 End: 01-12-2021 Transvaginal Non- Comments: See Note; NOTES: [facility] Imaging Services [address] [place] [address] Transvaginal Non- MR#: [id number] Acct: [id number] Name: GUME CARDOZA Rep #: [id number] : 1965 F 55 From: Juan Jose vargas MD PCP: Dr. Alanis Lantigua DO Status: REG CLI Study: Transvaginal Non- Date of Exam: Exam# [id number] Ordering Dr: Nika Alvarez MD STUDY: ULTRASOUND OF THE FEMALE PELVIS - COMPLETE REASON FOR EXAM: Female, 55 years old. POST MEN BLEEDING LMP: Patient is postmenopausal. TECHNIQUE: Transabdominal and Transvaginal TECHNICAL QUALITY: Adequate. COMPARISON: Comparison is made with prior examination dated 10/30/2018. FINDINGS: The uterus is anteverted and is in a midline position. The uterus measures 7.5 cm x 4 cm x 3.4 cm. There is a Nabothian cyst of the cervix. The endometrium measures 3.1 mm in thickness, and is hyperechoic. There is no demonstrated endometrial mass. The uterus is of heterogeneous echotexture. No focal fibroid is seen. I.U.D. - The patient does not have an I.U.D. The right ovary is visualized. The right ovary measures 2.4 cm x 1.6 cm x 1.3 cm. Small follicles are seen within the ovary. There is no visualized right adnexal mass or complex lesion. There is normal arterial and normal venous vascularity. The left ovary is visualized. The left ovary measures 2 cm x 1.1 cm x 1.4 cm. There is no left ovarian cyst or ovarian mass. There is no visualized left adnexal mass or complex lesion. There is normal arterial and normal venous vascularity. There is minimal fluid in the cul-de-sac. The pre void volume of the bladder was 714 ml. US/Transvaginal Non- IMPRESSION: Heterogeneous appearance of the uterus although no focal fibroid is seen. Electronically Signed: Juan Jose aBker MD at 15:08 EDT , Service support , CC: Dr. Nika Alvarez MD; Dr. Alanis Lantigua DO Business Writer: Signed Alanis Lantigua DO Work Phone: Start: 12-19-2020 End: 12-19-2020 SCRN MAMM (CAD)W/LEISA BILAT Comments: See Note; NOTES: [facility] Imaging Services [address] [place] [address] SCRN MAMM (CAD)W/LEISA BILAT MR#: [id number] Acct: [id number] Name: GUME CARDOZA Rep #: [id number] : 1965 F 55 From: Juan Jose vargas MD PCP: Dr. Alanis Lantigua DO Status: REG CLI Study: SCRN MAMM (CAD)W/LEISA BILAT Date of Exam: 02/01 Exam# [id number] Ordering Dr: Nika Alvarez MD MAMMOGRAPHY - BILATERAL SCREENING REASON FOR EXAM: Female, 55 years old. Routine annual screening examination. PERTINENT HISTORY: Sister with breast cancer. Prior right stereotactic breast biopsy. TECHNIQUE: Digital bilateral breast leisa (3D mammographic acquisition) in the CC and MLO projections. 2-D mediolateral oblique (MLO) and craniocaudad (CC) views of both breasts were obtained. CAD: Full Field Digital Mammography with Computer Added Detection was performed. COMPARISON: Comparison is made with prior examination dated 01/12/2019 and 12/14/2019 FINDINGS: Breast Composition: The breasts are extremely dense, which lowers the sensitivity of mammography. There are no dominant masses or suspicious calcifications. A tissue clip marker is seen in the upper deep lateral aspect of the right breast. No other significant abnormalities are identified. There has been no significant change since the prior study. BI/SCRN MAMM (CAD)W/LEISA BILAT IMPRESSION: Stable bilateral screening mammogram. Yearly follow-up mammogram recommended. (A) ASSESSMENT CATEGORY: BIRADS Category 2: Benign. A letter regarding these results will be sent to the patient by the facility within 30 days. Approximately 10% of breast cancers are not detected by mammography. A normal mammogram should not delay biopsy of a clinically suspicious abnormality. [id number] Electronically Signed: Juan Jose Baker MD at 13:49 EDT , Service support , CC: Dr. Nika Alvarez MD; Dr. Alanis Lantigua DO Business Writer: Signed Alanis Lantigua DO Work Phone: Start: 03-18-2020 End: 03-18-2020 CT Abd/Pelvis W/WO Contrast Comments: See Note; NOTES: [facility] Imaging Services [address] [place] [address] CT Abd/Pelvis W/WO Contrast MR#: [id number] Acct: [id number] Name: GUME CARDOZA Rep #: [id number] : 1965 F 54 From: Tesfaye Otero PCP: Dr. Alanis Lantigua DO Status: REG CLI Study: CT Abd/Pelvis W/WO Contrast Date of Exam: 11/01 Exam# [id number] Ordering Dr: Sofia Cochran MD STUDY: CT ABDOMEN AND PELVIS WITH AND WITHOUT CONTRAST REASON FOR EXAM: Female, 54 years old. 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 IV 100mL Isovue-370 was administered. Sagittal and coronal images were reconstructed. Individualized dose optimization techniques were used for this CT. COMPARISON: Dec 07 2012 FINDINGS: The visualized lung bases are unremarkable. The visualized portions of the heart are within normal limits. Normal liver. Normal gallbladder and extrahepatic biliary system. Normal spleen. Normal pancreas. Normal bilateral adrenal glands. Normal right kidney. Normal left kidney. Normal visualized stomach. Normal small intestine. Normal colon. The appendix is visualized and appears normal. Normal abdominal aorta. Normal inferior vena cava. Normal retroperitoneum. Normal urinary bladder. There are moderately extensive bilateral pelvic adnexal varices. Normal abdominal wall. Normal osseous structures. CT/CT Abd/Pelvis W/WO Contrast IMPRESSION: 1. Normal urinary system. 2. Pelvic venous varices. Electronically Signed: Tesfaye Porras, at 18:39 EDT Tel , Service support , CC: Dr. Sofia Cochran MD; Dr. Alanis Lantigua DO Business Writer: Signed Sofia Cochran Work Phone: Start: 01-30-2020 End: 01-30-2020 Urgent Care Visit Report Comments: See Note; NOTES: [facility] [address] [place] [id number] OFFICE VISIT Date of Service: 01/30/20 MR#: [id number] Acct: [id number] Name: GUME CARDOZA Rep #: [id number] : 1965 Provider: ISMA Lyons Age/Sex: 54/F Location: [facility] Status: Signed Intake Vital Signs 01/30/20 BMI 19.5 01/30/20 Height 5 ft 5 in 01/30/20 Weight: 118 lb 01/30/20 BMI 19.6 01/30/20 BP 118/84 H 01/30/20 Blood Pressure Location Lt brachial 01/30/20 Position Sitting 01/30/20 Respiration 18 01/30/20 Pulse 95 01/30/20 Temp 99.0 F 01/30/20 Temp Source Temporal 01/30/20 Pulse Oximetry (%) 98 01/30/20 Oxygen Delivery Method room air Intake Visit Reasons: Urinary tract infection Chief Complaint: uti Allergies codeine Adverse Reaction (Verified 03/28/19 09:24) Rash Penicillins Adverse Reaction (Verified 03/28/19 09:24) Rash PFSH Medical History DFSP (Acute) Surgical History History of neck surgery (Acute) History of tonsillectomy and adenoidectomy (Acute) Social History (Updated 01/30/20 @ 13:01 by ISMA Cage) Smoking Status: Never smoker alcohol intake: current Alcohol type: wine HPI HPI Chief Complaint: uti Details: GUME CARDOZA, is a 54 F who presents to the office today for complaint of a possible urinary tract infection. Patient states that yesterday she started having some dysuria and then awoke this morning with hematuria. She denies any abdominal or pelvic pain. No loss of bowel or bladder control. No fever, chills, sweats. No nausea, vomiting, diarrhea. No other associated symptoms or alleviating/aggravating factors. ROS Const Constitutional: Positive for other (6 system ROS completed with pertinent findings in the HPI otherwise normal.) Exam Const General: cooperative, healthy appearing Resp Effort Inspection: normal respiratory effort Auscultation: Bilateral: Clear to Auscultation Cardio Rate: regular rate Rhythm: regular rhythm GI Auscultation: normal bowel sounds General: No CVA tenderness Psych Appearance: grossly normal Mental Status: mental status grossly normal Results POC Urine Office , Urine Negative Last Edit by ISMA Cage on 01/30/20 12:58 POC Urinalysis Dip (Clinic) Office Urine Color YELLOW Last Edit by ISMA Cage on 01/30/20 12:59 Office Urine Clarity Cloudy Last Edit by ISMA Cage on 01/30/20 12:59 Office Urine Glucose Negative Last Edit by ISMA Cage on 01/30/20 12:59 Office Urine Ketones Trace (5) Last Edit by ISMA Cage on 01/30/20 12:59 Off Ur Spec Navarro 1.015 Last Edit by ISMA Cage on 01/30/20 12:59 Office Urine pH Last Edit by ISMA Cage on 01/30/20 12:59 Office Urine Bilirubin Negative Last Edit by ISMA Cage on 01/30/20 12:59 Office Urine Urobilinogen Negative Last Edit by ISMA Cage on 01/30/20 12:59 Office Urine Blood Large Last Edit by ISMA Cage on 01/30/20 12:59 Office Urine Blood Hemolyzed Negative Last Edit by ISMA Cage on 01/30/20 12:59 Office Urine Protein Negative Last Edit by ISMA Cage on 01/30/20 12:59 Office Urine Nitrate Positive Last Edit by ISMA Cage on 01/30/20 12:59 Off Ur Leukocytes Positive Last Edit by ISMA Cage on 01/30/20 12:59 Assessment Plan 1. Acute cystitis with hematuria N30.01 Status Acute Plan Macrobid as prescribed today. Encouraged to get plenty of rest, drink lots of clear liquids, and use Tylenol or Ibuprofen (unless contraindicated) for fever and comfort. Patient also educated on other symptomatic management techniques. To be seen in 7-10 days if no improvement; sooner if worsening of symptoms. Patient advised of potential red flags and when appropriate to report to the ED. Patient verbalized understanding and agreement with all the above. Orders Orders: POC Urine Today POC Urinalysis Dip (Clinic) Today Plan Detail Other Medications New: nitrofurantoin monohyd/m-cryst 100 mg administer with a meal/food; swallow whole; do not open, crush, dissolve , or chew 1 cap PO Q12H 7 days 14 caps 0RF Goals Decrease pain and radiculopathy Decrease parasthesia Barriers DDD Coding Level of Care Code Off vis,new,level 3 Diagnoses Acute cystitis with hematuria N30.01 ?Urinary tract infection type: acute cystitis ?Hematuria presence: with hematuria 01/30/20 1301 <Electronically signed by Nick ASHBY> Date Nick ASHBY Cosigner Signature: Date (if applicable) CC: Alanis Lantigua Start: 12-14-2019 End: 12-14-2019 Breast Limited Unilateral Comments: See Note; NOTES: [facility] Imaging Services [address] [place] [address] Breast Limited Unilateral MR#: [id number] Acct: [id number] Name: GUME CARDOZA Rep #: [id number] : 1965 F 54 From: Juan Jose vargas MD PCP: Dr. Alanis Lantigua, DO Status: REG CLI Study: Breast Limited Unilateral Date of Exam: Exam# [id number] Ordering Dr: Nika Alvarez MD STUDY: ULTRASOUND BREAST - RIGHT REASON FOR EXAM: Female, 54 years old. Pain in the right breast. TECHNIQUE: Axial and longitudinal images of the RIGHT breast were performed with a high resolution ultrasound transducer. # OF IMAGES: 27 COMPARISON: Comparison is made with prior mammogram done earlier in the day as well as prior ultrasound of the right breast dated September 24, 2011. FINDINGS: RIGHT Breast: There is a 9 mm x 9 mm x 4 mm well-defined hypoechoic solid nodule at the 10:00 position of the breast in 6 cm from the nipple. This has decreased in size as compared to prior study. US/Breast Limited Unilateral IMPRESSION: 9 mm x 9 mm x 4 mm well-defined hypoechoic solid nodule at the 10:00 position the breast is 6 cm from the nipple. Prior biopsy of this nodule was performed. ASSESSMENT CATEGORY: BIRADS Category 2: Benign. A letter regarding these results will be sent to the patient by the facility within 30 days. Electronically Signed: Juan Jose Baker, at 12:26 EDT , Service support , CC: Dr. Nika Alvarez MD; Dr. Alanis Lantigua DO Business Writer: Signed Alanis Lantigua Start: 12-14-2019 End: 12-14-2019 DIAG MAMM W/CAD, BILAT Comments: See Note; NOTES: [facility] Imaging Services [address] [place] [address] DIAG MAMM W/CAD, BILAT MR#: [id number] Acct: [id number] Name: GUME CARDOZA Rep #: [id number] : 1965 F 54 From: Juan Jose vargas MD PCP: Dr. Alanis Lantigua DO Status: [facility] Study: DIAG MAMM W/CAD, BILAT Date of Exam: 12/14/19 Exam# [id number] Ordering Dr: Nika Alvarez MD MAMMOGRAPHY - BILATERAL DIAGNOSTIC REASON FOR EXAM: Female, 54 years old. Six-week history of right upper quadrant breast pain. PERTINENT HISTORY: Sister with breast cancer. Prior right stereotactic breast biopsy. TECHNIQUE: Digital bilateral breast leisa (3D mammographic acquisition) in the CC and MLO projections. 2-D mediolateral oblique (MLO) and craniocaudad (CC) views of both breasts were obtained. CAD: Full Field Digital Mammography with Computer Added Detection was performed. COMPARISON: Comparison is made with prior examination of January 12, 2019 and January 10, 2018. FINDINGS: Breast Composition: The breasts are extremely dense, which lowers the sensitivity of mammography. There are no dominant masses or suspicious calcifications. A tissue clip marker is once again seen within a tiny nodular density in the deep axillary region of the right breast. No other significant abnormalities are identified. There has been no significant change since the prior study. BI/DIAG MAMM W/CAD, BILAT IMPRESSION: Stable bilateral diagnostic mammogram. One year follow-up recommended. (A) ASSESSMENT CATEGORY: BIRADS Category 2: Benign. A letter regarding these results will be sent to the patient by the facility within 30 days. Approximately 10% of breast cancers are not detected by mammography. A normal mammogram should not delay biopsy of a clinically suspicious abnormality. Electronically Signed: Juan Jose Baker, at 10:26 EDT , Service support , CC: Dr. Nika Alvarez MD; Dr. Alanis Lantigua DO Business Writer: Signed Alanis Lantigua Start: 06-17-2019 End: 03-25-2020 Ribs Unil 2V No CXR Comments: See Note; NOTES: [facility] Imaging Services [address] [place] [address] Ribs Unil 2V No CXR MR#: [id number] Acct: [id number] Name: GUME CARDOZA Rep #: [id number] : 1965 F 53 From: Manjit Barcenas MD PCP: Alanis Lantigua DO Status: REG CLI Study: Ribs Unil 2V No CXR Date of Exam: 06/17/19 Exam# [id number] Ordering Dr: Garima Carson STUDY: X-RAY - UNILATERAL RIBS ( LEFT ) REASON FOR EXAM: Female, 53 years old. Rib pain times several months TECHNIQUE: 2 view(s) of the ribs. COMPARISON: None. FINDINGS: There is a healing nondisplaced fracture of the anterior left eighth rib. The visualized lung is clear and expanded. RAD/Ribs Unil 2V No CXR IMPRESSION: Healing nondisplaced fracture of the anterior left eighth rib. Electronically Signed: Manjit Barcenas MD at 16:14 EST , Service support , CC: PIOTR Carson; Alanis Lantigua DO Business Writer: Signed Garima Carson Work Phone: Start: 01-12-2019 End: 01-12-2019 SCREEN MAMM (CAD) W/LEISA BILAT Comments: See Note; NOTES: [facility] Imaging Services [address] [place] [address] SCREEN MAMM (CAD) W/LEISA BILAT MR#: [id number] Acct: [id number] Name: GUME CARDOZA Branden Rep #: [id number] : 1965 F 53 From: Juan Jose Baker MD PCP: Alanis Lantigua DO Status: REG CLI Study: SCREEN MAMM (CAD) W/LEISA BILAT Date of Exam: 01/12/19 Exam# [id number] Ordering Dr: Alanis Lantigua DO MAMMOGRAPHY - BILATERAL SCREENING REASON FOR EXAM: Female, 53 years old. Routine annual screening examination. PERTINENT HISTORY: Sister with breast cancer. Remote right stereotactic breast biopsy. TECHNIQUE: Digital bilateral breast leisa (3D mammographic acquisition) in the CC and MLO projections. 2-D mediolateral oblique (MLO) and craniocaudad (CC) views of both breasts were obtained. CAD: Full Field Digital Mammography with Computer Added Detection was performed. COMPARISON: Comparison is made with prior examination dated January 10, 2018 and November 06, 2016. FINDINGS: Breast Composition: The breasts are extremely dense, which lowers the sensitivity of mammography. There are no dominant masses or suspicious calcifications. A tissue clip marker is once again seen in the deep upper lateral aspect of the right breast. No other significant abnormalities are identified. There has been no significant change since the prior study. BI/SCREEN MAMM (CAD) W/LEISA BILAT IMPRESSION: Stable bilateral screening mammogram. Yearly follow-up mammogram recommended. (A) ASSESSMENT CATEGORY: BIRADS Category 2: Benign. A letter regarding these results will be sent to the patient by the facility within 30 days. Approximately 10% of breast cancers are not detected by mammography. A normal mammogram should not delay biopsy of a clinically suspicious abnormality. [id number] Electronically Signed: Juan Jose Baker, at 13:59 EDT , Service support , CC: Alanis Lantigua DO Business Writer: Signed Alanis Lantigua Work Phone: Start: 11-09-2018 End: 11-09-2018 Office Visit Report Comments: See Note; NOTES: [facility] [place] [address] OFFICE VISIT Date of Service: 09/11/18 MR#: [id number] Acct: [id number] Patient: GUME CARDOZA Rep #: [id number] : 1965 Provider: ISMA Lofton Age/Sex: 53/F Location: [facility] Status: Signed Intake Intake Visit Reasons: SHINGLES VAC Allergies codeine Adverse Reaction (Verified 04/19/16 08:14) Rash Penicillins Adverse Reaction (Verified 04/19/16 08:14) Rash Medications Calcium Carbonate [Calcium] 1,200 mg PO DAILY 04/19/16 [History Confirmed 04/19/16] Cholecalciferol (Vitamin D3) [Vitamin D3] 2,000 unit PO DAILY 04/19/16 [History Confirmed 04/19/16] Fexofenadine/Pseudoephedrine [Itzel-D 24 Hour Tablet] 1 ea PO DAILY 04/19/16 [History Confirmed 04/19/16] Magnesium 500 mg PO DAILY 04/19/16 [History Confirmed 04/19/16] Spironolactone [Aldactone] 100 mg PO DAILY 04/19/16 [History Confirmed 04/19/16] Office Meds Shingrix (PF) Performing Provider: ISMA Powell Administered by: Guadalupe Lazo on 09/11/18 12:17 Dose Route Admin Location Lot Number Expiration Date [facility] [employer] Assessment AND Plan Orders Orders: Medications Discontinued: Shingrix (PF) (varicella-zoster [id number] (PF)) Discontin0.5 mL IM ONCE 1 ea 0RF NS Z23 ued Reason: Office Medication has been Documented as given Plan Detail Goals Decrease pain and radiculopathy Decrease parasthesia Barriers DDD 11/09/18 0955 <Electronically signed by Nela ASHBY> Date Nela ASHBY Cosigner Signature: Date (if applicable) CC: Alanis Lantigua Start: 10-30-2018 End: 10-31-2018 Transvaginal Non- Comments: See Note; NOTES: [facility] Imaging Services [address] [place] [address] Transvaginal Non- MR#: [id number] Acct: [id number] Name: GUME CARDOZA Rep #: [id number] : 1965 F 53 From: Montana Clemente MD PCP: Alanis Lantigua DO Status: REG CLI Study: Transvaginal Non- Date of Exam: 10/30/18 Exam# [id number] Ordering Dr: Nika Alvarez MD STUDY: ULTRASOUND OF THE FEMALE PELVIS - COMPLETE REASON FOR EXAM: Female, 53 years old. Abdominal fullness on physical exam TECHNIQUE: Transabdominal and Transvaginal TECHNICAL QUALITY: Adequate. COMPARISON: None. FINDINGS: The uterus is retroverted and is in a midline position. The uterus measures 6.6 x 4.7 x 3.6 cm. There are small nabothian cysts within the cervix. The endometrium measures 2 mm in thickness, and is hyperechoic. There is no demonstrated endometrial mass. There is no demonstrated myometrial mass. No I.U.D. - The right ovary is visualized. The right ovary measures 2.5 x 2.1 x 1.2 cm. There is no right ovarian cyst or ovarian mass. Normal-appearing follicles. No adnexal mass. There is normal arterial and normal venous vascularity. The left ovary is visualized. The left ovary measures 2.8 x 3.1 x 1.9 cm. There is no left ovarian cyst or ovarian mass. Normal appearing follicles. No adnexal mass. There is normal arterial and normal venous vascularity. There is a trace amount of free fluid in the pelvic cul-de-sac. The pre void volume of the bladder was 63 ml. Polycystic ovary disease: No. US/Transvaginal Non- IMPRESSION: No acute pelvic abnormality. Electronically Signed: Montana Clemente MD at 5:02 EDT Tel , Service support , CC: Nika Alvarez MD; Alanis Lantigua DO Business Writer: Signed Alanis Lantigua Start: 10-09-2018 End: 10-09-2018 Chiropractic Report Comments: See Note; NOTES: [facility] [address] [place] [address] OFFICE VISIT Date of Service: 10/09/18 MR#: [id number] Acct: [id number] Name: GUME CARDOZA Rep #: [id number] : 1965 Provider: Roseline Hutchison D.C. Age/Sex: 53/F Location: [facility] Status: Signed Intake Intake Visit Reasons: neck pain Chief Complaint: R sided neck and shoulder pain Is patient in pain?: Yes Allergies codeine Adverse Reaction (Verified 04/19/16 08:14) Rash Penicillins Adverse Reaction (Verified 04/19/16 08:14) Rash Medications Calcium Carbonate [Calcium] 1,200 mg PO DAILY 04/19/16 [History Confirmed 04/19/16] Cholecalciferol (Vitamin D3) [Vitamin D3] 2,000 unit PO DAILY 04/19/16 [History Confirmed 04/19/16] Fexofenadine/Pseudoephedrine [Itzel-D 24 Hour Tablet] 1 ea PO DAILY 04/19/16 [History Confirmed 04/19/16] Magnesium 500 mg PO DAILY 04/19/16 [History Confirmed 04/19/16] Spironolactone [Aldactone] 100 mg PO DAILY 04/19/16 [History Confirmed 04/19/16] PFSH Social History Smoking Status: Never smoker HPI neck pain : Chief Complaint: R sided neck pain Visit Number: 3 Details: GUME CARDOZA is a 53 year old F who presents with R sided neck pain. Gume states that her pain has slightly decreased, leaving her with a deep and sore ache that is constant. Rotation of the neck, lifting, and using the R arm causes increased pain. After playing tennis, and rotation of the arm the pain does increase. Currently Gume rates her pain a 3/10, she describes it as a deep and sore ache that is constant. Gume denies any numbness, tingling, or radiculopathy. Location: R sided neck pain Duration: constant Aggravating or associated factors: rotation of the arm, lifting, and playing tennis Relieving factors: chiro Pain Quality: aching, dull, cramping Exam Musc General: Yes normal posture, normal gait, joint tenderness (C5,C6,C7,T3,T4) and decreased ROM Cervical Spine: loss of normal cervical lordosis, cervical muscular tenderness right lower: paracervical muscle and trapezius, pain with cervical ROM with lateral flexion to right, with lateral flexion to left, with rotation to left and with rotation to right, cervical spasm right lower: trapezius and paracervical muscles, cervical ROM abnormal lateral flexion to the right decreased, lateral flexion to the left decreased, rotation to left decreased and rotation to right decreased Thoracic/Lumbar Spine: thoracic and lumbar spine normal to inspection, thoraco-lumbar ROM normal, paraspinal tenderness on the right in the upper thoracic and in the mid thoracic, thoraco-lumbar spasm on the right in the upper thoracic Office Procedures Chiropractic Treatments Procedures Manipulation: 1-2 regions (C5,T1,T4) Assessment AND Plan 1. Segmental and somatic dysfunction of cervical region M99.01 Orders Orders: 2. Degenerative disc disease, cervical M50.30 Orders Orders: 3. Segmental and somatic dysfunction of thoracic region M99.02 Orders Orders: 4. Cervical radiculopathy M54.12 Orders Orders: Plan Detail Additional Comments Continue care. Goals Decrease pain and radiculopathy Decrease parasthesia Barriers DDD Follow Up 2 x week Coding Level of Care Code No Charge Diagnoses Segmental and somatic dysfunction of cervical region M99.01 Degenerative disc disease, cervical M50.30 Segmental and somatic dysfunction of thoracic region M99.02 Cervical radiculopathy M54.12 Additional Codes Procedures - Manipulation: 1-2 regions (22982) 10/09/18 1014 <Electronically signed by Roseline Hutchison D.C.> Date Roseline Murrell Signature: Date (if applicable) CC: Alanis Lantigua Start: 10-06-2018 End: 10-06-2018 Chiropractic Report Comments: See Note; NOTES: [facility] [address] [place] [address] OFFICE VISIT Date of Service: 10/06/18 MR#: [id number] Acct: [id number] Name: GUME CARDOZA Rep #: [id number] : 1965 Provider: Roseline Hutchison D.C. Age/Sex: 53/F Location: [facility] Status: Signed Intake Intake Visit Reasons: neck pain Chief Complaint: R sided neck and shoulder pain Is patient in pain?: Yes Allergies codeine Adverse Reaction (Verified 04/19/16 08:14) Rash Penicillins Adverse Reaction (Verified 04/19/16 08:14) Rash Medications Calcium Carbonate [Calcium] 1,200 mg PO DAILY 04/19/16 [History Confirmed 04/19/16] Cholecalciferol (Vitamin D3) [Vitamin D3] 2,000 unit PO DAILY 04/19/16 [History Confirmed 04/19/16] Fexofenadine/Pseudoephedrine [Itzel-D 24 Hour Tablet] 1 ea PO DAILY 04/19/16 [History Confirmed 04/19/16] Magnesium 500 mg PO DAILY 04/19/16 [History Confirmed 04/19/16] Spironolactone [Aldactone] 100 mg PO DAILY 04/19/16 [History Confirmed 04/19/16] PFSH Social History Smoking Status: Never smoker HPI neck pain : Chief Complaint: R sided neck and shoulder pain Visit Number: 2 Details: GUME CARDOZA is a 53 year old F who presents with R sided shoulder and neck pain. Gume states that after the adjustment her pain become sore, now radiating into the elbow. Today Gume rates her pain a 4/10, she describes it as a sore, tight, and stiff ache that is constant. Rotation of the arm, lifting, pulling, and pushing causes the pain to increase. At times the area is numb and tingling. The adjustment did give slight relief. She stated that she has a history of tennis elbow which can flare up at times. Location: R neck and elbow pain Duration: constant Aggravating or associated factors: rotation, lifting, pushing, pulling Relieving factors: chiro Pain Quality: aching, dull, cramping, radiating Exam Musc General: Yes normal posture, normal gait, joint tenderness (C5,C6,C7,T3,T4) and decreased ROM Cervical Spine: loss of normal cervical lordosis, cervical muscular tenderness right lower: paracervical muscle and trapezius, pain with cervical ROM with lateral flexion to right, with lateral flexion to left, with rotation to left and with rotation to right, cervical spasm right lower: trapezius and paracervical muscles, cervical ROM abnormal lateral flexion to the right decreased, lateral flexion to the left decreased, rotation to left decreased and rotation to right decreased Thoracic/Lumbar Spine: thoracic and lumbar spine normal to inspection, thoraco-lumbar ROM normal, paraspinal tenderness on the right in the upper thoracic and in the mid thoracic, thoraco-lumbar spasm on the right in the upper thoracic Office Procedures Chiropractic Treatments Procedures Manipulation: 1-2 regions (C5,C7,T4) Assessment AND Plan 1. Segmental and somatic dysfunction of thoracic region M99.02 Orders Orders: 2. Degenerative disc disease, cervical M50.30 Orders Orders: 3. Segmental and somatic dysfunction of cervical region M99.01 Orders Orders: Plan Detail Other Orders Orders: Additional Comments Continue care. Goals Decrease pain and radiculopathy Decrease parasthesia Barriers DDD Follow Up 2 x week Coding Level of Care Code No Charge Diagnoses Segmental and somatic dysfunction of thoracic region M99.02 Degenerative disc disease, cervical M50.30 Segmental and somatic dysfunction of cervical region M99.01 Additional Codes Procedures - Manipulation: 1-2 regions (16503) 10/06/18 1016 <Electronically signed by Roseline Hutchison D.C.> Date Roseline Ernandezignbeatriz Signature: Date (if applicable) CC: Alanis Lantigua Start: 09-30-2018 End: 09-30-2018 Chiropractic Report Comments: See Note; NOTES: [facility] [address] [place] [address] OFFICE VISIT Date of Service: 09/30/18 MR#: [id number] Acct: [id number] Name: GUME CARDOZA Rep #: [id number] : 1965 Provider: Roseline Hutchison D.C. Age/Sex: 53/F Location: [facility] Status: Signed Intake Intake Visit Reasons: Neck pain Chief Complaint: L sided neck and shoulder pain Is patient in pain?: Yes Allergies codeine Adverse Reaction (Verified 04/19/16 08:14) Rash Penicillins Adverse Reaction (Verified 04/19/16 08:14) Rash Medications Calcium Carbonate [Calcium] 1,200 mg PO DAILY 04/19/16 [History Confirmed 04/19/16] Cholecalciferol (Vitamin D3) [Vitamin D3] 2,000 unit PO DAILY 04/19/16 [History Confirmed 04/19/16] Fexofenadine/Pseudoephedrine [Itzel-D 24 Hour Tablet] 1 ea PO DAILY 04/19/16 [History Confirmed 04/19/16] Magnesium 500 mg PO DAILY 04/19/16 [History Confirmed 04/19/16] Spironolactone [Aldactone] 100 mg PO DAILY 04/19/16 [History Confirmed 04/19/16] PFSH Social History Smoking Status: Never smoker HPI Neck pain : Chief Complaint: R sided neck and shoulder pain Visit Number: 1 Details: GUME CARDOZA is a 53 year old F who presents with R sided neck and shoulder pain. Gume states that her pain began one morning and gradually increased leaving her with a tight and sore ache banding across the R shoulder. Lifting, movement of the shoulder, rotation, and pulling causes increased pain. Over the past week Gume has complained of numbness, tingling, and a cold sensation into the R hand. At times the pain will radiate into the neck. Onset: 09/16/18 Location: R shoulder pain Duration: constant Aggravating or associated factors: rotation of the arm, lifting, and twisting Relieving factors: unknown Pain Quality: aching, dull, cramping, sharp, radiating Exam Musc General: Yes normal gait, joint tenderness (C5,C6,C7,T3,T4) and decreased ROM; no normal posture (guarded right neck) Cervical Spine: loss of normal cervical lordosis, cervical muscular tenderness right lower: paracervical muscle and trapezius, pain with cervical ROM with lateral flexion to right, with lateral flexion to left, with rotation to left and with rotation to right, cervical spasm right lower: trapezius and paracervical muscles, cervical ROM abnormal lateral flexion to the right decreased, lateral flexion to the left decreased, rotation to left decreased and rotation to right decreased Thoracic/Lumbar Spine: thoracic and lumbar spine normal to inspection, thoraco-lumbar ROM normal, paraspinal tenderness on the right in the upper thoracic and in the mid thoracic, thoraco-lumbar spasm on the right in the upper thoracic Office Procedures Chiropractic Treatments Procedures Manipulation: 1-2 regions (C5,C7,T4) Assessment AND Plan 1. Segmental and somatic dysfunction of cervical region M99.01 Orders Orders: 2. Cervical radiculopathy M54.12 3. Segmental and somatic dysfunction of thoracic region M99.02 4. 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 Goals Decrease pain and radiculopathy Decrease parasthesia Barriers DDD Follow Up 2 x week Coding Level of Care Code Off vis,est,level 1 Diagnoses Segmental and somatic dysfunction of cervical region M99.01 Cervical radiculopathy M54.12 Segmental and somatic dysfunction of thoracic region M99.02 Degenerative disc disease, cervical M50.30 Additional Codes Procedures - Manipulation: 1-2 regions (20931) RE-EVAL 09/30/18 0956 <Electronically signed by Roseline Hutchison D.C.> Date Roseline Murrell Signature: Date (if applicable) CC: Alanis Lantigua Start: 01-10-2018 End: 01-10-2018 SCREENING MAMM (CAD), BILAT Comments: See Note; NOTES: [facility] Imaging Services [address] [place] [address] SCREENING MAMM (CAD), BILAT MR#: [id number] Acct: [id number] Name: GUME CARDOZA Rep #: [id number] : 1965 F 52 From: Juan Jose Baker MD PCP: Alanis Lantigua DO Status: [facility] CLI Study: SCREENING MAMM (CAD), BILAT Date of Exam: 01/10/18 Exam# [id number] Ordering Dr: Alanis Lantigua DO MAMMOGRAPHY - BILATERAL SCREENING REASON FOR EXAM: Female, 52 years old. Routine annual screening examination. PERTINENT HISTORY: Sister with breast cancer. Remote right stereotactic breast biopsy. TECHNIQUE: Digital bilateral breast leisa (3D mammographic acquisition) in the CC and MLO projections. 2-D mediolateral oblique (MLO) and craniocaudad (CC) views of both breasts were obtained. CAD: Full Field Digital Mammography with Computer Added Detection was performed. COMPARISON: Comparison is made with prior study dated November 06, 2016 and November 19, 2013. FINDINGS: Breast Composition: The breasts are extremely dense, which lowers the sensitivity of mammography. There are no dominant masses or suspicious calcifications. A tissue clip marker is once again seen in the axillary region of the right breast No other significant abnormalities are identified. There has been no significant change since the prior study. BI/SCREENING MAMM (CAD), BILAT IMPRESSION: Stable bilateral screening mammogram. Yearly follow-up mammogram recommended. (A) ASSESSMENT CATEGORY: BIRADS Category 2: Benign. A letter regarding these results will be sent to the patient by the facility within 30 days. Approximately 10% of breast cancers are not detected by mammography. A normal mammogram should not delay biopsy of a clinically suspicious abnormality. [id number] Electronically Signed: Juan Jose Baker MD at 10:07 EDT Tel [phone], Service support , CC: Alanis Lantigua DO Business Writer: Signed Alanis Lantigua Work Phone: Start: 12-27-2017 End: 12-30-2017 Finger(s) Min 2 Views Comments: See Note; NOTES: [facility] Imaging Services [address] [place] [address] Finger(s) Min 2 Views MR#: [id number] Acct: [id number] Name: GUME CARDOZA Rep #: [id number] : 1965 F 52 From: Judah Maldonado PCP: Alanis Lantigua DO Status: REG CLI Study: Finger(s) Min 2 Views Date of Exam: 12/27/17 Exam# [id number] Ordering Dr: Alanis Lantigua DO STUDY: X-RAY - RIGHT HAND, ATTENTION RING FINGER REASON FOR EXAM: Female, 52 years old. Redness and swelling. No known injury. TECHNIQUE: 3 view(s) of the finger were obtained. COMPARISON: None. FINDINGS: Normal metacarpal head. Normal metacarpophalangeal joint. Normal proximal phalanx. Normal middle phalanx. Normal distal phalanx. Normal proximal interphalangeal joint. Normal distal interphalangeal joint. No significant soft tissue swelling. No radiopaque foreign bodies. No erosions. RAD/Finger(s) Min 2 Views IMPRESSION: Normal x-ray examination of the finger. Electronically Signed: Judah Maldonado MD at 8:17 EDT , Service support , CC: Alanis Lantigua DO Business Writer: Signed Alanis Lantigua Work Phone: Start: 11-24-2017 End: 11-24-2017 Venous Duplex Lower Extremity Comments: See Note; NOTES: [facility] Cardiovascular Services [address] [place] [address] Venous Duplex US - Tramaine Extrem 11/22/17 0901 MR#: [id number] Acct: [id number] Name: GUME CARDOZA Rep #: [id number] : 1965 52 From: Venancio Cr MD Attending Dr: Venancio Cr MD Status: REG CLI Ordering Dr: Venancio Cr MD Date: 11/22/17 Location: [facility] Sex: F C Admitted: Reason For Study: pain/swelling RIGHT LEFT CFV is compressible, spontaneous, phasic, CFV is compressible, spontaneous, phasic, competent and demonstrates normal competent, and demonstrates normal augmentation. augmentation. FV is compressible, spontaneous, phasic, FV is compressible, spontaneous, phasic, competent and demonstrates normal competent and demonstrates normal augmentation. augmentation. POP V is compressible, spontaneous, phasic, POP V is compressible, spontaneous, phasic, competent and demonstrates normal competent and demonstrates normal augmentation. augmentation. T/P Trunk is compressible. T/P Trunk is compressible. PTV is compressible. PTV is compressible. RT PerV is compressible. LT PerV is compressible. SFJ is competent SFJ is competent. GSV is competent GSV is incompetent throughout with diameter SSV is competent. of .35 x .36 cm. Procedure SSV is competent. Exam performed in department. The exam was diagnostic. Interpretation Summary 1. Bilateral legs no DVt or SVT. 2. Left GSV reflux 3.6mm. Ordering Physician: Venancio Cr Referring Physician: Alanis Lantigua Performed By: Samantha Hogan, FAHEEM, RVT 11/24/17 1333 Date Venancio Cr MD CC: Venancio Cr MD; Alanis Lantigua DO Date Dictated: 11/22/17 0901 Date Transcribed: 11/24/17 133 Business Writer: Signed Venancio Cr Work Phone: Start: 09-10-2017 End: 09-10-2017 Dexa Bone Density Study () Comments: See Note; NOTES: [facility] Imaging Services [address] [place] [address] Dexa Bone Density Study () MR#: [id number] Acct: [id number] Name: GUME CARDOZA Rep #: [id number] : 1965 F 52 From: Juan Jose Baker MD PCP: Alanis Lantigua DO Status: [facility] Study: Dexa Bone Density Study () Date of Exam: 09/10/17 Exam# [id number] Ordering Dr: Alanis Lantigua DO STUDY: DUAL ENERGY X-RAY ABSORPTIOMETRY / DXA REASON FOR EXAM: Female, 52 years old. The patient is postmenopausal. No loss of height. TECHNIQUE: Bone Mineral Density (BMD) measurements of lumbar spine and bilateral hips were obtained. COMPARISON: Comparison is made with prior study dated September 29, 2014. FINDINGS: Lumbar Spine (L1-L4): g/cm2 (1.164) / T-score (-0.1) / Z-score (0.5) Findings are suggestive of normal bone density with a low fracture risk. Left Femur Total: g/cm2 (0.978) / T-score (-0.2) / Z-score (0.3) Left Femoral Neck: g/cm2 (0.987) / T-score (-0.4) / Z-score (0.5) Right Femur Total: g/cm2 (1.012) / T-score (0.0) / Z-score (0.6) Right Femoral Neck: g/cm2 (1.014) / T-score (-0.2) / Z-score (0.7) The T-Scores on the most recent prior examination were: Lumbar Spine (L1-L4): There has been worsening of bone density since the previous examination. Left Femur Total: which represents a worsening of 0.5%. Right Femur Total: which represents a worsening of 2.2%. HPBD/Dexa Bone Density Study (HP) IMPRESSION: The patient is considered normal as outlined below according to World Bhanu Organization (WHO) criteria with a low fracture risk. There has been worsening of bone density since the previous examination. Reference Information: The T-score is the number of standard deviations above or below the standard which is normal for young adults at their peak bone mineral density. The World Health Organization (WHO) interprets the T-scores as follows: Above -1 Normal bone density Between -1 and -2.5 Osteopenia Equal to / or below -2.5 Osteoporosis As a practical clinical guideline, osteopenia may be graded as follows: Mild -1 through -1.5 Moderate -1.6 through -2.0 Severe -2.1 through -2.4 The Z-score is the number of standard deviations above or below age-matched controls. A Z-score of less than -1.5 would be considered abnormal. References: 1. NIH Osteoporosis and Related Bone Diseases http://www.osteo.org 2. International Society for Clinical Densitometry http://www.iscd.org 3. National Osteoporosis Foundation http://www.nof.org Electronically Signed: Juan Jose Baker MD at 13:36 EST Tel [phone], Service support , CC: Alanis Lantigua DO Business Writer: Signed Alanis Lantigua Work Phone: Start: 12-03-2016 End: 12-03-2016 Documentation of current medications Roseline Dossi DC Start: 12-03-2016 End: 12-03-2016 Chiropractic manipulation Roseline Obrien Dossi DC Work Phone: Start: 11-29-2016 End: 11-29-2016 Documentation of current medications Roseline Dossi DC Start: 11-29-2016 End: 11-29-2016 Chiropract rinconj 1-2 regions Roseline Obrien Dossi DC Work Phone: Start: 11-28-2016 End: 11-28-2016 Chiropractic manipulation Roseline B Dossi DC Work Phone: Start: 11-26-2016 End: 11-26-2016 Chiropractic manipulation Baylee Badillo Start: 11-26-2016 End: 11-26-2016 Mechanical traction therapy Baylee Badillo Start: 11-26-2016 End: 11-26-2016 Ultrasound therapy Baylee Badillo Start: 11-22-2016 End: 11-26-2016 Chiropractic manipulation Roseline Obrien Dossi DC Work Phone: Start: 11-22-2016 End: 11-26-2016 Mechanical traction therapy Roseline Obrien Dossi DC Work Phone: Start: 11-22-2016 End: 11-26-2016 Ultrasound therapy Roseline Hutchison DC Work Phone: Start: 11-21-2016 End: 11-21-2016 Electric stimulation therapy Roseline Obrien Dossi DC Work Phone: Start: 11-21-2016 End: 11-21-2016 Mechanical traction therapy Roseline Obrien Dossi DC Work Phone: Start: 11-21-2016 End: 11-21-2016 X-ray exam of lower spine Roseline Hutchison DC Work Phone: Start: 11-06-2016 End: 11-08-2016 SCREENING MAMM (CAD), BILAT Comments: See Note; NOTES: [facility] Imaging Services [address] [place] [address] Verdana 4d SCREENING MAMM (CAD), BILAT MR#: [id number] Acct: [id number] Name: GUME CARDOZA Rep #: [id number] : 1965 F 51 From: Juan Jose Baker MD PCP: Alanis Lantigua DO Status: [facility] Study: SCREENING MAMM (CAD), BILAT Date of Exam: 11/06/16 Exam# [id number] Ordering Dr: Nika Alvarez MD MAMMOGRAPHY - BILATERAL SCREENING REASON FOR EXAM: Female, 51 years old. Routine annual screening examination. PERTINENT HISTORY: Sister with breast cancer. Prior right stereotactic biopsy. TECHNIQUE: Digital bilateral breast leisa (3D mammographic acquisition) in the CC and MLO projections. 2-D mediolateral oblique (MLO) and craniocaudad (CC) views of both breasts were obtained. CAD: Full Field Digital Mammography with Computer Added Detection was performed. COMPARISON: Comparison is made with prior study dated November 19, 2013 and outside examination dated November 01, 2015. FINDINGS: Breast Composition: The breasts are extremely dense, which lowers the sensitivity of mammography. There are no dominant masses or suspicious calcifications. A stereotactic tissue clip marker is seen in the axillary region of the right breast. This is unchanged. No other significant abnormalities are identified. There has been no significant change since the prior study. HPBI/SCREENING MAMM (CAD), BILAT IMPRESSION: Stable bilateral screening mammogram. Yearly follow-up mammogram recommended. (A) ASSESSMENT CATEGORY: BIRADS Category 2: Benign. A letter regarding these results will be sent to the patient by the facility within 30 days. Approximately 10% of breast cancers are not detected by mammography. A normal mammogram should not delay biopsy of a clinically suspicious abnormality. [id number] Electronically Signed: Juan Jose Baker MD at 14:50 EDT Tel [phone], Service support , CC: Nika Alvarez MD; Alanis Lantigua DO Business Writer: Signed Alanis Lantigua Start: 10-31-2016 End: 10-31-2016 PT D/C Summary (1) Comments: See Note; NOTES: [facility] [address] [place] [address]. [address] [place] [id number] Fax REHABILITATION SERVICES DISCHARGE SUMMARY MR#: [id number] Acct: [id number] Name: GUME CARDOZA Rep #: [id number] : 1965 51 From: Hasmukh Kenyon PT, ATC Referring DrGene: Alanis Lantigua DO Status: REG RCR Insurance: [facility] [employer] [facility] HP - PT D/C Summary It has been my pleasure to treat GUME CARDOZA under orders from Alanis Lantigua, for the diagnosis of R elbow and L heel pain for a total of 3 visit(s). Discharge Date: Please see the following information for a summary of their discharge status. - Subjective Subjective: Pt returns today noting she had increased pain 2 days after last session. Pt reports she wants to continue with HEP at this point. - Pain R elbow Pain Intensity (Out of 10): 2 L achilles Pain Intensity (Out of 10): 2 mid back Pain Intensity (Out of 10): 0 - Objective Objective/Function: Pt is now I with HEP and has achieved all Rx goals - Goals Goal 1:: Pt will be I with HEP in 3 visits. - Plan Plan: Discharge - D/C Information If there are questions or concerns regarding this patient's physical therapy, please feel free to call me at [phone]. Thank you for the referral of this patient. Sincerely, Hasmukh Kenyon PT, <Electronically signed by Hasmukh Kenyon PT, ATC> 10/31/16 1257 CC: Alanis Lantigua DO [facility] Signed Alanis Lantigua Start: 10-11-2016 End: 10-11-2016 Inital Evaluation (1) - PT Comments: See Note; NOTES: [facility] [address] [place] [address]. [address] [place] [address] Fax REHABILITATION SERVICES INITIAL EVALUATION MR#: [id number] Acct: [id number] Name: GUME CARDOZA Rep #: [id number] : 1965 51 From: Hasmukh Kenyon PT, ATC Referring Dr.: Alanis Lantigua DO Status: REG RCR Insurance: [facility] Patient's Visit Information GUME CARDOZA is a 51 year old F referred to Physical Therapy by Alanis Lantigua with a diagnosis of R elbow and L heel pain. Date of Evaluation: 10/11/16 Physical Therapist: Hasmukh Kenyon PT, - Visit Plan Frequency: 1-2x /Week Duration: 2 Weeks Plan: R UE/LE stretching and strengthening, DTR, foam rollout, US, and HEP - Subjective Subjective: Pt reports she has had R elbow pain for a chronic period of time. 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 Pt notes she took approximately 8 weeks of break prior to playing [employer] where she noticed the same pain at that time. Pt notes in the mean time, she began to notice L achilles tendon pain which attributes to not stretching enough. Pt also notes last week she experienced pain in her back which had an insidious onset in nature. Pt reports her major goal is to get rid of all this pain. Pt reports tennis is what provokes her pain, otherwise she has no pain. Pt reports she has been stretching her achilles, so her pain down there is getting better as well. Pt notes occasional T or N in hands, but they occur intermittently without known cause. No sleep diff secondary to pain. R elbow3/10 at rest, 7/10 at worst. L achilles, 0/10 at rest, 4/10 at worst. Lower thoracic pain 3/10 at rest. - Pain R elbow Pain Intensity (Out of 10): 3 Pain Intensity Range: 7 L achilles Pain Intensity (Out of 10): 0 Pain Intensity Range: 4 mid back Pain Intensity (Out of 10): 3 Pain Intensity Range: 5 - Objective Neuro: B UE/LE sensation is WNL to light touch. Bbiceps and pat tendon reflex= 3/3. wrsit ROM: L wrist flex= 65, ext= 80; R wrist flex= 65, ext= 50. wrist strength: B wrist strength 5/5 with exception to R wirst ext= 4-/5. Palpation of R elbow: Very tender along R lat epicondyle. No obvious deformity. Ankle ROM: R ankle DF=7, PF= 55; L ankle DF= 3 degrees, PF= 55. Ankle strength: B ankles 5/5 throughout. LB ROM: Pt is limited with both endrange flexion and extension at this time. repeated movements: RFIS produced pain and pt was worse afterwards. - Goals Goal 1:: Pt will be I with HEP in 3 visits. Goal Time Frame: 2 Weeks - Rehabilitation Potential Physical Therapy Diagnosis: Pt has R elbow pain and weakness secondary to tennis elbow syndrome. Pt has L achilles pain and limited flexibility secondary to tightness in L gastroc Rehabilitation Potential: Good - Anticipated Interventions Patient/Client Instruction: Educate patient on: Condition, Plan of Care For the Purpose of:: To prevent re-injury Therapeutic Exercise to Include: Strength training, Endurance training, Flexibilty training, Passive ROM, Active ROM For the Purpose of:: To decrease pain, To increase ROM, To improve muscle performance and motor function Cryotherapy (ice pack, ice massage): Yes Ultrasound (thermal/non thermal): Yes For the Purpose of:: To decrease pain Thank you for the opportunity to evaluate your patient. For Medicare and Medicare HMO plans, please review the plan of care and approve it. It will need to be FAXED BACK to us at [phone] for Medicare purposes. Please let me know if there are questions or concerns regarding this plan of care. Physician Signature: _Date: <Electronically signed by Hasmukh Kenyon PT, ATC> 10/11/16 1623 CC: Alanis Lantigua DO [facility] Signed For Medicare only, by signing this I certify the plan of care. Physicians Signature Date Alanis Lantigua Start: 04-24-2016 End: 04-24-2016 Operative Report Comments: See Note; NOTES: [facility] Medical Records Department [address] [place] [address] Operative Report 04/23/16 1446 MR#: [id number] Acct: [id number] Name: GUME CARDOZA Rep #: [id number] : 1965 50 From: Catherine Santos MD PCP: Alanis Lantigua DO Status: REG CLI Y Location: EN Problem List (1) Screening for colorectal cancer Status: Acute Report of Operation Date of Procedure: 04/23/16 Pre-Operative Diagnosis: Screening for colon cancer Post-Operative Diagnosis: normal colon Surgery/Procedure Performed:: Screening colonoscopy Type of Anesthesia:: MAC Anesthesiologist: Anant Hensley Estimated Blood Loss: none Description of Procedure: Procedure: After reviewing the risks benefits, the patient was deemed in satisfactory condition to undergo procedure. After obtaining informed consent, the scope was passed under direct visualization. Throughout the procedure, the patient's blood pressure pulse and position saturations were monitored continuously anesthesia. The colonoscope was introduced through the anus and advanced to the cecum, identified by the appendiceal orifice, IC valve and transillumination. The colonoscopy was performed and required some abdominal pressure/change in position to supine due to tortuous colon. The patient tolerated procedure well. Quality of bowel prep was good. Findings: The perianal and digital rectal exam were normal. The colon (entire examined portion) appeared normal--tortuous. Retroflexed view of the distal rectum and anal verge was normal and showed no anal or rectal abnormalities Impression: * The entire colon is normal. * The distal rectal and anal verge were normal on retroflexed view. Recommendations: * Repeat colonoscopy in 10 years for screening purposes - Complications none - Admit VTE Documentation VTE Present on Admission: Yes VTE Mechan Device Prophylaxis: SCD's VTE Pharm Prophylaxis ordered?: No Reason prophylaxis not ordered:: Treatment Not Indicated 04/24/16 1038 <Electronically signed by Catherine Santos MD> Date Catherine Santos MD CC: Alanis Lantigua DO; Catherine Santos MD Signed Alanis Lantigua Start: 04-10-2016 Screening for malignant neoplasm of colon Screening, colon cancer Roseline Hutchison DC Start: 08-15-2015 End: 08-15-2015 Foot min 3 Views Comments: See Note; NOTES: [facility] Imaging Services [address] [place] [address] Verdana 4d Foot min 3 Views MR#: [id number] Acct: [id number] Name: GUME CARDOZA Rep #: [id number] : 1965 F 50 From: Juan Jose Baker MD PCP: Mally Villalpando DO Status: REG CLI Study: Foot min 3 Views Date of Exam: 08/15/15 Exam# [id number] Ordering Dr: Mally Villalpando DO STUDY: X-RAY - LEFT FOOT CLINICAL: Female, 50 years old. Pain along the left great toe. No history of trauma. TECHNIQUE: 3 view(s) of the foot. COMPARISON: None. FINDINGS: Normal talus, calcaneus, and tarsal bones. Normal visualized subtalar, talonavicular, calcaneocuboid, tarsal and tarsometatarsal articulations. Normal metatarsi. Normal metatarsophalangeal joint of the great toe. Normal tibial and fibular sesamoid bones. Normal interphalangeal joint of the great toe. Normal phalanges of the great toe. Normal second through fifth metatarsophalangeal joints. Normal interphalangeal joints and phalanges of the lesser toes. The soft tissue structures are unremarkable. IMPRESSION: Normal x-ray examination of the foot. Electronically Signed: Juan Jose Baker MD at 15:56 EST Tel [phone], Service support [phone], RAD/Foot min 3 Views IMPRESSION: Normal x-ray examination of the foot. Electronically Signed: Juan Jose Baker MD at 15:56 EST Tel [phone], Service support [phone], CC: Mally Villalpando DO Business Writer: Signed Mally Villalpando Work Phone: Start: 07-21-2015 End: 07-21-2015 Pelvic (Non ) Comments: See Note; NOTES: [facility] Imaging Services [address] [place] [address] Verdana 4d Pelvic (Non ) MR#: [id number] Acct: [id number] Name: GUME CARDOZA Rep #: [id number] : 1965 F 50 From: Manjit Barcenas MD PCP: Mally Villalpando DO Status: REG CLI Study: Pelvic (Non ) Date of Exam: 07/21/15 Exam# [id number] Ordering Dr: Nika Alvarez MD STUDY: ULTRASOUND OF THE FEMALE PELVIS - COMPLETE REASON FOR EXAM: Female, 50 years old. Ovarian cysts LMP: 05/15/2015 TECHNIQUE: Transabdominal TECHNICAL QUALITY: Adequate. COMPARISON: Prior study of June 28, 2014. FINDINGS: The uterus is retroverted and is in a midline position. The uterus measures 7.4 x 5.0 x 4.5 cm. Normal uterine cervix. The endometrium measures 3.8 mm in thickness, and is hyperechoic. There is no demonstrated endometrial mass. There is no demonstrated myometrial mass. I.U.D. - The patient does not have an I.U.D. The right ovary is visualized. The right ovary measures 3.0 x 1.7 x 1.5 cm. There is a 1.2 CM right ovarian cyst. There is no visualized right adnexal mass or complex lesion. There is normal arterial and normal venous vascularity. The left ovary is visualized. The left ovary measures 2.8 x 2.3 x 1.7 cm. There is a 1.3 x 1.4 x 0.7 CM left ovarian cyst. There is no visualized left adnexal mass or complex lesion. There is normal arterial and normal venous vascularity. There is a minimal amount of fluid surrounding the left ovary. IMPRESSION: 1. Small bilateral ovarian cysts. 2. Minimal amount of free fluid surrounding the left ovary. 3. Retroverted uterus. Electronically Signed: Manjit Barcenas MD at 22:32 EST , Service support [phone], CC: Nika Alvarez MD; Mally Villalpando DO Business Writer: Signed Alanis Lantigua Start: 09-29-2014 End: 10-04-2014 Dexa Bone Density Study (HP) Comments: See Note; NOTES: [facility] Imaging Services [address] [place] [address] Bone Density Report MR#: [id number] Acct: [id number] Name: GUME CARDOZA Rep #: [id number] : 1965 F 49 From: Juan Jose Baker MD PCP: Mally Villalpando DO Status: REG CLI Study: Dexa Bone Density Study (HP) Date of Exam: 09/29/14 Exam# [id number] Ordering Dr: Mally Villalpando DO STUDY: DUAL ENERGY X-RAY ABSORPTIOMETRY / DXA REASON FOR EXAM: Female, 49 years old. The patient is postmenopausal. The patient is postmenopausal. TECHNIQUE: Bone Mineral Density (BMD) measurements of lumbar spine and bilateral hips were obtained. COMPARISON: Comparison is made with prior study dated September 04, 2012. FINDINGS: Lumbar Spine (L1-L4): g/cm2 (1.216) / T-score (0.4) / Z-score (0.7) Findings are suggestive of normal bone density with a low fracture risk. Left Femur Total: g/cm2 (0.983) / T-score (-0.2) / Z-score (0.2) Left Femoral Neck: g/cm2 (0.903) / T-score (-1.0) / Z-score (-0.2) Right Femur Total: g/cm2 (1.035) / T-score (0.2) / Z-score (0.7) Right Femoral Neck: g/cm2 (0.963) / T-score (-0.5) / Z-score (0.2) The T-Scores on the most recent prior examination were: Lumbar Spine (L1-L4): There has been worsening of bone density since the previous examination. Left Femur Total: which represents a worsening of 1.3%. Right Femur Total: which represents a worsening of 0.9%. IMPRESSION: The patient is considered normal as outlined below according to World Bhanu Organization (WHO) criteria with a low fracture risk. There has been worsening of bone density since the previous examination. Reference Information: The T-score is the number of standard deviations above or below the standard which is normal for young adults at their peak bone mineral density. The World Health Organization (WHO) interprets the T-scores as follows: Above -1 Normal bone density Between -1 and -2.5 Osteopenia Equal to / or below -2.5 Osteoporosis As a practical clinical guideline, osteopenia may be graded as follows: Mild -1 through -1.5 Moderate -1.6 through -2.0 Severe -2.1 through -2.4 The Z-score is the number of standard deviations above or below age-matched controls. A Z-score of less than -1.5 would be considered abnormal. References: 1. NIH Osteoporosis and Related Bone Diseases http://www.osteo.org 2. International Society for Clinical Densitometry http://www.iscd.org 3. National Osteoporosis Foundation http://www.nof.org Electronically Signed: Juan Jose Baker MD at 14:35 EDT Tel [phone], Service support [phone], CC: Mally Villalpando DO Business Writer: Signed Mally Villalpando Work Phone: Start: 06-28-2014 End: 06-28-2014 Pelvic (Non ) Comments: See Note; NOTES: [facility] Imaging Services [address] [place] [address] Ultrasound Report MR#: [id number] Acct: [id number] Name: GUME CARDOZA Branden Rep #: [id number] : 1965 F 48 From: Juan Jose Baker MD PCP: Mally Villalpando DO Status: REG CLI Study: Pelvic (Non ) Date of Exam: 06/28/14 Exam# [id number] Ordering Dr: Nika Alvarez MD STUDY: ULTRASOUND OF THE FEMALE PELVIS - COMPLETE REASON FOR EXAM: Female, 48 years old. LMP: June 03, 2014. Excessive menses. TECHNIQUE: Transabdominal TECHNICAL QUALITY: Adequate. COMPARISON: Comparison is made with prior study dated December 23, 2012. FINDINGS: The uterus is anteverted and is in a midline position. The uterus measures 8.4 cm x 4.6 cm x 6 cm. Normal uterine cervix. The endometrium measures 9.7 mm in thickness, and is hyperechoic. There is no demonstrated endometrial mass. There is no demonstrated myometrial mass. I.U.D. - No The right ovary is visualized. The right ovary measures 3 cm x 2.4 cm x 1.3 cm. Small follicles are seen within it. cm. There is no right ovarian cyst or ovarian mass. There is no visualized right adnexal mass or complex lesion. There is normal arterial and normal venous vascularity. The left ovary is visualized. The left ovary measures 4.2 cm x 4.3 cm x 1.7 cm. 2 small cysts are seen within it. The larger measures 2.3 cm x 2.2 cm x 1.5 cm. There is no visualized left adnexal mass or complex lesion. There is normal arterial and normal venous vascularity. There is minimal fluid in the cul-de-sac. IMPRESSION: 2 small cysts are seen in the left ovary. This is unchanged. Electronically Signed: Juan Jose Baker MD at 14:00 EST Tel [phone], Service support [phone], CC: Nika Alvarez MD; Mally Villalpando DO Business Writer: Signed Alanis Lantigua Start: 11-24-2013 End: 11-24-2013 Sleep Study Report Comments: See Note; NOTES: [facility] [address] [place] [address] Polysomnography MR#: [id number] Acct: [id number] Name: GUME CARDOZA Rep #: [id number] : 1965 48 From: Jero Garcia MD PCP: Mally Villalpando DO Status: REG CLI Ordering Dr.: Mally Villalpando DO Date: 11/10/13 Sex: F C REFERRING PHYSICIAN: Dr. Villalpando. SLEEP HISTORY: The patient is a 48-year-old female with a calculated body mass index of 20.3 and an Durham Sleepiness Scale score of 4/24. She reportedly has history of snoring, witnessed apneas, night sweats, bruxism, daytime sleepiness, recurrent awakenings during the night, morning headaches, and is undergoing overnight polysomnogram to evaluate for possible sleep disordered breathing or other primary sleep disorder. ADDITIONAL MEDICAL HISTORY: Is significant for paresthesias, lumbago, alopecia, hematuria, keratosis, acne, vitamin D deficiency, allergic rhinitis, headaches. MEDICATIONS REPORTED AT TIME OF STUDY: Include Itzel, magnesium oxide, calcium with vitamin D, , Rhinocort, vitamin D, Aldactone. SCORING RULES: Respiratory events were acquired and scored in accordance with the Recommended Standards and Specifications as outlined in the AASM Manual for the Scoring of Sleep and Associated Events (most recent version). Please note that a reference to [facility] AHI in this report is consistent with the current Hypopnea definition according to Medicare Criteria and an AASM AHI reference is consistent with the current Hypopnea definition according to the AASM criteria. PROCEDURE: The study was attended continuously by a electrical mechanical technician. Monitored parameters included left and right EOG, frontal, central, and occipital EEG, mental and submental EMG, left and right anterior tibialis EMG, signal ECG waveform, snore, continuous airflow with thermistor and nasal pressure transducer, chest and abdominal plethysmography efforts, oxygen saturation with heart rate, and body positioning with video monitoring. SLEEP STUDY DATA: The overnight polysomnogram began at 1028:08 p.m. and ended at 0523:30 a.m. for a total recording time of 415.4 minutes of which the patient slept 324 minutes for a calculated sleep efficiency of 78%. Sleep latency was 12.3 minutes with a REM latency of 60 minutes. Sleep stage percentages were as follows: N1 6.2%, N2 39.2%, N3 33% and REM 21.6% of total sleep. There were a total of 113 arousals during the study resulting in an overall arousal index of 20.9. Note the majority of arousals were of spontaneous nature with a spontaneous arousal index of 13.1. Respiratory arousal index was 7.8. RESPIRATORY DATA: Snoring was present during this study. The overall apnea/hypopnea indices by CMS and AASM 2012 guidelines respectively were 0.9 and 8.0, Supine positioning did not significantly influence the apnea/hypopnea index nor did REM sleep. Mean oxygen saturation during sleep was 96% with a minimum oxygen saturation of 90%. EKG DATA: Mean heart rate during sleep was 68 beats per minute with a range of 54-100 beats per minute. No significant arrhythmias were noted. LIMB MOVEMENT DATA: There no periodic limb movements during this study. DIAGNOSIS: Obstructive sleep apnea syndrome. (327.23) IMPRESSION: 1. By AASM 2012 guidelines, the patient with mild obstructive sleep apnea syndrome. Respiratory events were associated with some arousal as well as oxygen desaturations as noted above. 2. Abnormal sleep architecture likely secondary to first night effect, possible medication effect, and respiratory events. RECOMMENDATIONS: 1. Given mild nature of sleep disordered breathing, multiple treatment options are available. These would include dental appliance, CPAP therapy, or possibly even Winx device if patient is not a mouth breather. Clinical correlation is needed and treatment options need to be discussed with patient before further treatment recommendations can be made. However, if the patient does decide treatment with positive airway pressure therapy, the patient should undergo a positive airway pressure titration to determine appropriate setting to normalize apnea/hypopnea index and attempt to maintain oxygen saturations greater than 90% . 2. Recommend the patient be advised to avoid activities or medications that could exacerbate sleep disorder breathing. 3. Recommend the patient be advised not to drive or operate heavy machinery when sleepy. INTERPRETING PHYSICIAN: Jero Garcia Jr., MD CC: Jero Garcia MD [id number] 11/24/13 1201 <Electronically signed by Jero Garcia MD> AGOSTO Date Jero Garcia MD Co-signature (if applicable) Date Signed Alanis Lantigua Start: 11-19-2013 End: 11-19-2013 Bilat Scrn Digital & CAD Comments: See Note; NOTES: [facility] Imaging Services [address] [place] [address] Breast Imaging Report MR#: [id number] Acct: [id number] Name: GUME CARDOZA Rep #: [id number] : 1965 F 48 From: Juan Jose Baker MD PCP: Mally Villalpando DO Status: REG CLI Exam# [id number] Ordering Dr: Mally Villalpando DO MAMMOGRAPHY - BILATERAL SCREENING REASON FOR EXAM: Female, 48 years old. Routine annual screening examination. PERTINENT HISTORY: Non-contributory. Prior right stereotactic biopsy. TECHNIQUE: Digital examination. Mediolateral oblique (MLO) and craniocaudad (CC) views of both breasts were obtained. CAD: CAD was performed on this study. COMPARISON: Comparison is made with prior examination dated August 05, 2012 and June 18, 2011 FINDINGS: The breast composition is extremely dense - greater than 75% glandular and fibrous tissue. This can lower the sensitivity of mammography. There are no dominant masses or suspicious calcifications. No other significant abnormalities are identified. There has been no significant change since the prior study. IMPRESSION: Stable bilateral screening mammogram. Yearly follow-up recommended. (A) ASSESSMENT CATEGORY: BIRADS Category 2: Benign finding(s). A letter regarding these results will be sent to the patient by the facility within 30 days. Approximately 10% of breast cancers are not detected by mammography. A normal mammogram should not delay biopsy of a clinically suspicious abnormality. Electronically Signed: Juan Jose Baker MD at 10:49 EDT Tel [phone], Service support [phone], CC: Mally Villalpando DO Business Writer: Signed Mally Villalpando Work Phone: End: 04-11-2018 Laboratory test result abnormal Abnormal laboratory test Tyson Ryland [employer] Plan of Treatment Date Care Activity Detail Author Start: 09-12-2022 Procedure Education [facility] Work Phone: Start: 09-12-2022 Urnls dip stick/tabl et reagent auto microscopy [facility]; [facility] Work Phone: Start: 09-12-2022 Urine albumin quantitative [facility]; [facility] Work Phone: Start: 09-12-2022 Comprehensive metabo lic panel [facility]; [facility] Work Phone: Start: 09-12-2022 Lipid panel [facility] Work Phone: Start: 09-12-2022 Blood count complete auto&auto difrntl wbc [facility]; [facility] Work Phone: Start: 05-16-2022 Procedure [facility]; [facility] Work Phone: Start: 05-16-2022 Provider Instruction s for Treatment [facility]; [facility] Work Phone: Start: 05-16-2022 Urnls dip stick/tabl et rgnt non-auto w/o micrscp Urinalysis, Office (33236) [facility]; [facility] Work Phone: Start: 04-30-2022 Procedure [facility]; [facility] Work Phone: Start: 04-30-2022 Provider Instruction s for Treatment [facility]; [facility] Work Phone: Start: 03-08-2022 Procedure [facility] Work Phone: Start: 03-08-2022 Provider Instruction s for Treatment [facility]; [facility] Work Phone: Start: 10-26-2021 Procedure [facility]; [facility] Work Phone: Start: 10-26-2021 Provider Instruction s for Treatment [facility]; [facility] Work Phone: Start: 10-26-2021 Assay of thyroid stimulating hormone tsh [facility]; [facility] Work Phone: Start: 10-26-2021 25 hydroxy includes fractions if performed [facility]; [facility] Work Phone: Start: 10-26-2021 Urnls dip stick/tabl et reagent auto microscopy [facility]; [facility] Work Phone: Start: 10-26-2021 Urine albumin quantitative [facility]; [facility] Work Phone: Start: 10-26-2021 Comprehensive metabo lic panel [facility]; [facility] Work Phone: Start: 10-26-2021 Lipid panel [facility] Work Phone: Start: 10-05-2021 Procedure [facility]; [facility] Work Phone: Start: 10-05-2021 Blood count complete automated [facility]; [facility] Work Phone: Start: 10-05-2021 Assay of gammaglobul in ige [facility]; [facility] Work Phone: Start: 05-24-2021 Procedure [facility] Work Phone: Start: 05-24-2021 Provider Instruction s for Treatment [facility]; [facility] Work Phone: Start: 05-19-2021 Procedure [facility]; [facility] Work Phone: Start: 05-12-2021 Procedure [facility] Work Phone: Start: 05-12-2021 Provider Instruction s for Treatment [facility]; [facility] Work Phone: Start: 05-10-2021 Procedure [facility] Work Phone: Start: 05-10-2021 Provider Instruction s for Treatment [facility]; [facility] Work Phone: Start: 02-24-2020 Procedure [facility] Work Phone: Start: 02-24-2020 Culture bct isol&prs mptv id isolate ea urine [facility] Work Phone: Immunizations Immunization Date Immunization Notes Care Provider Sung coe 04-30-2022 influenza, injectabl e, quadrivalent, contains preservative Alanis Lantigua DO Work Phone: [facility]; [facility] Work Phone: Payers Date Payer Category Payer Unknown [id number] 2015 Unknown [id number] 2005 Unknown [id number] 1965 Unknown [id number] 1965 Unknown [id number] Unknown Social History Date Type Detail Facility No Caffeine Use Never smoker [facility] Work Phone: Tobacco use: Never smoker. [facility] Work Phone: Instructions Note Date & Type Note Facility [facility]; [facility] Work Phone: Instructions Note Date & Type Note Facility [facility]; [facility] Work Phone: Instructions Note Date & Type Note Facility [facility]; [facility] Work Phone: Instructions Note Date & Type Note Facility [facility]; [facility] Work Phone: Instructions Note Date & Type Note Facility [facility]; [facility] Work Phone: Instructions Note Date & Type Note Facility [facility]; [facility] Work Phone: Instructions Note Date & Type Note Facility [facility]; [facility] Work Phone: Instructions Note Date & Type Note Facility [facility]; [facility] Work Phone: Instructions Note Date & Type Note Facility [facility]; [facility] Work Phone: Instructions Note Date & Type Note Facility [facility]; [facility] Work Phone: Family History No Family History Records FoundUnknown Family Member Name Dates Details Father Comments:healthy- but his br others all cad in there 60s Status:Active Unknown Family Member Name Dates Details Father Comments:healthy- but his br others all cad in there 60s Status:Active Unknown Family Member Name Dates Details Father Comments:healthy- but his br others all cad in there 60s Status:Active Unknown Family Member Name Dates Details Father Comments:healthy- but his br others all cad in there 60s Status:Active Unknown Family Member Name Dates Details Father Comments:healthy- but his br others all cad in there 60s Status:Active Unknown Family Member Name Dates Details Father Comments:healthy- but his br others all cad in there 60s Status:Active Unknown Family Member Name Dates Details Father Comments:healthy- but his br others all cad in there 60s Status:Active Unknown Family Member Name Dates Details Father Comments:healthy- but his br others all cad in there 60s Status:Active Unknown Family Member Name Dates Details Father Comments:healthy- but his br others all cad in there 60s Status:Active Unknown Family Member Name Dates Details Father Comments:healthy- but his br others all cad in there 60s Status:Active Unknown Family Member Name Dates Details Father Comments:healthy- but his br others all cad in there 60s Status:Active Unknown Family Member Name Dates Details Father Comments:healthy- but his br others all cad in there 60s Status:Active Unknown Family Member Name Dates Details Father Comments:healthy- but his br others all cad in there 60s Status:Active Unknown Family Member Name Dates Details Father Comments:healthy- but his br others all cad in there 60s Status:Active Unknown Family Member Name Dates Details Father Comments:healthy- but his br others all cad in there 60s Status:Active Unknown Family Member Name Dates Details Father Comments:healthy- but his br others all cad in there 60s Status:Active Unknown Family Member Name Dates Details Father Comments:healthy- but his br others all cad in there 60s Status:Active Unknown Family Member Name Dates Details Father Comments:healthy- but his br others all cad in there 60s Status:Active Unknown Family Member Name Dates Details Father Comments:healthy- but his br others all cad in there 60s Status:Active Unknown Family Member Name Dates Details Father Comments:healthy- but his br others all cad in there 60s Status:Active Unknown Family Member Name Dates Details Father Comments:healthy- but his br others all cad in there 60s Status:Active Unknown Family Member Name Dates Details Father Comments:healthy- but his br others all cad in there 60s Status:Active Unknown Family Member Name Dates Details Father Comments:healthy- but his br others all cad in there 60s Status:Active Unknown Family Member Name Dates Details Father Comments:healthy- but his br others all cad in there 60s Status:Active Instructions Name Dates Details Need for prophylactic vaccin ation and inoculation against influenza (Renamed from Need for immunization against influenza) : How to access health information online Indication:Need for prophylactic vaccination and inoculation against influenza (Renamed from Need for immunization against influenza) Need for prophylactic vaccin ation and inoculation against influenza (Renamed from Need for immunization against influenza) : How to access health information online - Detail Indication:Need for prophylactic vaccination and inoculation against influenza (Renamed from Need for immunization against influenza) Need for prophylactic vaccin ation and inoculation against influenza (Renamed from Need for immunization against influenza) : Patient Instructions Indication:Need for prophylactic vaccination and inoculation against influenza (Renamed from Need for immunization against influenza) BMI less than 19,adult : How to access health information online Indication:BMI less than 19,adult BMI less than 19,adult : How to access health information online - Detail Indication:BMI less than 19,adult BMI less than 19,adult : Pat ient Instructions Indication:BMI less than 19,adult Non-smoker : How to access h ealth information online Indication:Non-smoker Non-smoker : How to access h ealth information online - Detail Indication:Non-smoker Non-smoker : Patient Instruc tions Indication:Non-smoker Foot pain : How to access he alth information online Indication:Foot pain Foot pain : How to access he alth information online - Detail Indication:Foot pain Foot pain : Patient Instruct ions Indication:Foot pain Acute sinusitis : How to acc ess health information online Indication:Acute sinusitis Acute sinusitis : How to acc ess health information online - Detail Indication:Acute sinusitis Acute sinusitis : Patient In structions Indication:Acute sinusitis Acne : Patient Instructions Indication:Acne Need for prophylactic vaccin ation and inoculation against influenza : Patient Instructions Indication:Need for prophylactic vaccination and inoculation against influenza Osteopenia : Patient Instruc tions Indication:Osteopenia Obstructive sleep apnea, juliana lt : Patient Instructions Indication:Obstructive sleep apnea, adult Fatigue : Patient Instructio ns Indication:Fatigue Paresthesia : Patient Instru ctions Indication:Paresthesia Chronic sinusitis : Patient Instructions Indication:Chronic sinusitis Name Dates Details How to access health informa tion online Indication:Encounter for screening mammogram for breast cancer (Renamed from Encounter for screening mammogram for malignant neoplasm of breast) Start:27-Nov-2018 Instruction Type:Patient Education How to access health informa tion online - Detail Indication:Encounter for screening mammogram for breast cancer (Renamed from Encounter for screening mammogram for malignant neoplasm of breast) Start:27-Nov-2018 Instruction Type:Patient Education Patient Instructions Indication:Encounter for screening mammogram for breast cancer (Renamed from Encounter for screening mammogram for malignant neoplasm of breast) Start:27-Nov-2018 Instruction Type:Provider Instructions for Treatment How to access health informa tion online Indication:Need for prophylactic vaccination and inoculation against influenza (Renamed from Need for immunization against influenza) Start:11-Apr-2018 Instruction Type:Patient Education How to access health informa tion online - Detail Indication:Need for prophylactic vaccination and inoculation against influenza (Renamed from Need for immunization against influenza) Start:11-Apr-2018 Instruction Type:Patient Education Patient Instructions Indication:Need for prophylactic vaccination and inoculation against influenza (Renamed from Need for immunization against influenza) Start:11-Apr-2018 Instruction Type:Provider Instructions for Treatment How to access health informa tion online Indication:BMI less than 19,adult Start:07-Feb-2018 Instruction Type:Patient Education How to access health informa tion online - Detail Indication:BMI less than 19,adult Start:07-Feb-2018 Instruction Type:Patient Education Patient Instructions Indication:BMI less than 19,adult Start:07-Feb-2018 Instruction Type:Provider Instructions for Treatment How to access health informa tion online Indication:BMI less than 19,adult Start:23-Aug-2017 Instruction Type:Patient Education How to access health informa tion online - Detail Indication:BMI less than 19,adult Start:23-Aug-2017 Instruction Type:Patient Education Patient Instructions Indication:BMI less than 19,adult Start:23-Aug-2017 Instruction Type:Provider Instructions for Treatment How to access health informa tion online Indication:Non-smoker Start:08-Oct-2016 Instruction Type:Patient Education How to access health informa tion online - Detail Indication:Non-smoker Start:08-Oct-2016 Instruction Type:Patient Education Patient Instructions Indication:Non-smoker Start:08-Oct-2016 Instruction Type:Provider Instructions for Treatment How to access health informa tion online Indication:Foot pain Start:19-Aug-2015 Instruction Type:Patient Education How to access health informa tion online - Detail Indication:Foot pain Start:19-Aug-2015 Instruction Type:Patient Education Patient Instructions Indication:Foot pain Start:19-Aug-2015 Instruction Type:Provider Instructions for Treatment How to access health informa tion online Indication:Foot pain Start:12-Aug-2015 Instruction Type:Patient Education How to access health informa tion online - Detail Indication:Foot pain Start:12-Aug-2015 Instruction Type:Patient Education Patient Instructions Indication:Foot pain Start:12-Aug-2015 Instruction Type:Provider Instructions for Treatment How to access health informa tion online Indication:Acute sinusitis Start:23-May-2015 Instruction Type:Patient Education How to access health informa tion online - Detail Indication:Acute sinusitis Start:23-May-2015 Instruction Type:Patient Education Patient Instructions Indication:Acute sinusitis Start:23-May-2015 Instruction Type:Provider Instructions for Treatment Patient Instructions Indication:Acne Start:15-Sep-2014 Instruction Type:Provider Instructions for Treatment Patient Instructions Indication:Need for prophylactic vaccination and inoculation against influenza Start:27-Apr-2014 Instruction Type:Provider Instructions for Treatment Patient Instructions Indication:Osteopenia Start:11-Jan-2014 Instruction Type:Provider Instructions for Treatment Patient Instructions Indication:Obstructive sleep apnea, adult Start:30-Nov-2013 Instruction Type:Provider Instructions for Treatment Patient Instructions Indication:Fatigue Start:26-Oct-2013 Instruction Type:Provider Instructions for Treatment Patient Instructions Indication:Paresthesia Start:13-Jan-2013 Instruction Type:Provider Instructions for Treatment Patient Instructions Indication:Paresthesia Start:15-Dec-2012 Instruction Type:Provider Instructions for Treatment Patient Instructions Indication:Chronic sinusitis Start:26-Nov-2012 Instruction Type:Provider Instructions for Treatment Patient Instructions Indication:Acne Start:01-Sep-2012 Instruction Type:Provider Instructions for Treatment Patient Instructions Indication:Paresthesia Start:18-Mar-2012 Instruction Type:Provider Instructions for Treatment Name Dates Details How to access health informa tion online Indication:Encounter for screening mammogram for breast cancer (Renamed from Encounter for screening mammogram for malignant neoplasm of breast) Start:27-Nov-2018 Instruction Type:Patient Education How to access health informa tion online - Detail Indication:Encounter for screening mammogram for breast cancer (Renamed from Encounter for screening mammogram for malignant neoplasm of breast) Start:27-Nov-2018 Instruction Type:Patient Education Patient Instructions Indication:Encounter for screening mammogram for breast cancer (Renamed from Encounter for screening mammogram for malignant neoplasm of breast) Start:27-Nov-2018 Instruction Type:Provider Instructions for Treatment How to access health informa tion online Indication:Need for prophylactic vaccination and inoculation against influenza (Renamed from Need for immunization against influenza) Start:11-Apr-2018 Instruction Type:Patient Education How to access health informa tion online - Detail Indication:Need for prophylactic vaccination and inoculation against influenza (Renamed from Need for immunization against influenza) Start:11-Apr-2018 Instruction Type:Patient Education Patient Instructions Indication:Need for prophylactic vaccination and inoculation against influenza (Renamed from Need for immunization against influenza) Start:11-Apr-2018 Instruction Type:Provider Instructions for Treatment How to access health informa tion online Indication:BMI less than 19,adult Start:07-Feb-2018 Instruction Type:Patient Education How to access health informa tion online - Detail Indication:BMI less than 19,adult Start:07-Feb-2018 Instruction Type:Patient Education Patient Instructions Indication:BMI less than 19,adult Start:07-Feb-2018 Instruction Type:Provider Instructions for Treatment How to access health informa tion online Indication:BMI less than 19,adult Start:23-Aug-2017 Instruction Type:Patient Education How to access health informa tion online - Detail Indication:BMI less than 19,adult Start:23-Aug-2017 Instruction Type:Patient Education Patient Instructions Indication:BMI less than 19,adult Start:23-Aug-2017 Instruction Type:Provider Instructions for Treatment How to access health informa tion online Indication:Non-smoker Start:08-Oct-2016 Instruction Type:Patient Education How to access health informa tion online - Detail Indication:Non-smoker Start:08-Oct-2016 Instruction Type:Patient Education Patient Instructions Indication:Non-smoker Start:08-Oct-2016 Instruction Type:Provider Instructions for Treatment How to access health informa tion online Indication:Foot pain Start:19-Aug-2015 Instruction Type:Patient Education How to access health informa tion online - Detail Indication:Foot pain Start:19-Aug-2015 Instruction Type:Patient Education Patient Instructions Indication:Foot pain Start:19-Aug-2015 Instruction Type:Provider Instructions for Treatment How to access health informa tion online Indication:Foot pain Start:12-Aug-2015 Instruction Type:Patient Education How to access health informa tion online - Detail Indication:Foot pain Start:12-Aug-2015 Instruction Type:Patient Education Patient Instructions Indication:Foot pain Start:12-Aug-2015 Instruction Type:Provider Instructions for Treatment How to access health informa tion online Indication:Acute sinusitis Start:23-May-2015 Instruction Type:Patient Education How to access health informa tion online - Detail Indication:Acute sinusitis Start:23-May-2015 Instruction Type:Patient Education Patient Instructions Indication:Acute sinusitis Start:23-May-2015 Instruction Type:Provider Instructions for Treatment Patient Instructions Indication:Acne Start:15-Sep-2014 Instruction Type:Provider Instructions for Treatment Patient Instructions Indication:Need for prophylactic vaccination and inoculation against influenza Start:27-Apr-2014 Instruction Type:Provider Instructions for Treatment Patient Instructions Indication:Osteopenia Start:11-Jan-2014 Instruction Type:Provider Instructions for Treatment Patient Instructions Indication:Obstructive sleep apnea, adult Start:30-Nov-2013 Instruction Type:Provider Instructions for Treatment Patient Instructions Indication:Fatigue Start:26-Oct-2013 Instruction Type:Provider Instructions for Treatment Patient Instructions Indication:Paresthesia Start:13-Jan-2013 Instruction Type:Provider Instructions for Treatment Patient Instructions Indication:Paresthesia Start:15-Dec-2012 Instruction Type:Provider Instructions for Treatment Patient Instructions Indication:Chronic sinusitis Start:26-Nov-2012 Instruction Type:Provider Instructions for Treatment Patient Instructions Indication:Acne Start:01-Sep-2012 Instruction Type:Provider Instructions for Treatment Patient Instructions Indication:Paresthesia Start:18-Mar-2012 Instruction Type:Provider Instructions for Treatment Name Dates Details How to access health informa tion online Indication:Encounter for screening mammogram for breast cancer (Renamed from Encounter for screening mammogram for malignant neoplasm of breast) Start:27-Nov-2018 Instruction Type:Patient Education How to access health informa tion online - Detail Indication:Encounter for screening mammogram for breast cancer (Renamed from Encounter for screening mammogram for malignant neoplasm of breast) Start:27-Nov-2018 Instruction Type:Patient Education Patient Instructions Indication:Encounter for screening mammogram for breast cancer (Renamed from Encounter for screening mammogram for malignant neoplasm of breast) Start:27-Nov-2018 Instruction Type:Provider Instructions for Treatment How to access health informa tion online Indication:Need for prophylactic vaccination and inoculation against influenza (Renamed from Need for immunization against influenza) Start:11-Apr-2018 Instruction Type:Patient Education How to access health informa tion online - Detail Indication:Need for prophylactic vaccination and inoculation against influenza (Renamed from Need for immunization against influenza) Start:11-Apr-2018 Instruction Type:Patient Education Patient Instructions Indication:Need for prophylactic vaccination and inoculation against influenza (Renamed from Need for immunization against influenza) Start:11-Apr-2018 Instruction Type:Provider Instructions for Treatment How to access health informa tion online Indication:BMI less than 19,adult Start:07-Feb-2018 Instruction Type:Patient Education How to access health informa tion online - Detail Indication:BMI less than 19,adult Start:07-Feb-2018 Instruction Type:Patient Education Patient Instructions Indication:BMI less than 19,adult Start:07-Feb-2018 Instruction Type:Provider Instructions for Treatment How to access health informa tion online Indication:BMI less than 19,adult Start:23-Aug-2017 Instruction Type:Patient Education How to access health informa tion online - Detail Indication:BMI less than 19,adult Start:23-Aug-2017 Instruction Type:Patient Education Patient Instructions Indication:BMI less than 19,adult Start:23-Aug-2017 Instruction Type:Provider Instructions for Treatment How to access health informa tion online Indication:Non-smoker Start:08-Oct-2016 Instruction Type:Patient Education How to access health informa tion online - Detail Indication:Non-smoker Start:08-Oct-2016 Instruction Type:Patient Education Patient Instructions Indication:Non-smoker Start:08-Oct-2016 Instruction Type:Provider Instructions for Treatment How to access health informa tion online Indication:Foot pain Start:19-Aug-2015 Instruction Type:Patient Education How to access health informa tion online - Detail Indication:Foot pain Start:19-Aug-2015 Instruction Type:Patient Education Patient Instructions Indication:Foot pain Start:19-Aug-2015 Instruction Type:Provider Instructions for Treatment How to access health informa tion online Indication:Foot pain Start:12-Aug-2015 Instruction Type:Patient Education How to access health informa tion online - Detail Indication:Foot pain Start:12-Aug-2015 Instruction Type:Patient Education Patient Instructions Indication:Foot pain Start:12-Aug-2015 Instruction Type:Provider Instructions for Treatment How to access health informa tion online Indication:Acute sinusitis Start:23-May-2015 Instruction Type:Patient Education How to access health informa tion online - Detail Indication:Acute sinusitis Start:23-May-2015 Instruction Type:Patient Education Patient Instructions Indication:Acute sinusitis Start:23-May-2015 Instruction Type:Provider Instructions for Treatment Patient Instructions Indication:Acne Start:15-Sep-2014 Instruction Type:Provider Instructions for Treatment Patient Instructions Indication:Need for prophylactic vaccination and inoculation against influenza Start:27-Apr-2014 Instruction Type:Provider Instructions for Treatment Patient Instructions Indication:Osteopenia Start:11-Jan-2014 Instruction Type:Provider Instructions for Treatment Patient Instructions Indication:Obstructive sleep apnea, adult Start:30-Nov-2013 Instruction Type:Provider Instructions for Treatment Patient Instructions Indication:Fatigue Start:26-Oct-2013 Instruction Type:Provider Instructions for Treatment Patient Instructions Indication:Paresthesia Start:13-Jan-2013 Instruction Type:Provider Instructions for Treatment Patient Instructions Indication:Paresthesia Start:15-Dec-2012 Instruction Type:Provider Instructions for Treatment Patient Instructions Indication:Chronic sinusitis Start:26-Nov-2012 Instruction Type:Provider Instructions for Treatment Patient Instructions Indication:Acne Start:01-Sep-2012 Instruction Type:Provider Instructions for Treatment Patient Instructions Indication:Paresthesia Start:18-Mar-2012 Instruction Type:Provider Instructions for Treatment Name Dates Details How to access health informa tion online Indication:Hematuria Start:24-Feb-2020 Instruction Type:Patient Education How to access health informa tion online - Detail Indication:Hematuria Start:24-Feb-2020 Instruction Type:Patient Education Patient Instructions Indication:Hematuria Start:24-Feb-2020 Instruction Type:Provider Instructions for Treatment How to access health informa tion online Indication:Non-smoker Start:01-Jul-2019 Instruction Type:Patient Education How to access health informa tion online - Detail Indication:Non-smoker Start:01-Jul-2019 Instruction Type:Patient Education Patient Instructions Indication:Non-smoker Start:01-Jul-2019 Instruction Type:Provider Instructions for Treatment How to access health informa tion online Indication:BMI 20.0-20.9, adult Start:17-Jun-2019 Instruction Type:Patient Education How to access health informa tion online - Detail Indication:BMI 20.0-20.9, adult Start:17-Jun-2019 Instruction Type:Patient Education Patient Instructions Indication:BMI 20.0-20.9, adult Start:17-Jun-2019 Instruction Type:Provider Instructions for Treatment How to access health informa tion online Indication:Hematuria Start:08-Apr-2019 Instruction Type:Patient Education How to access health informa tion online - Detail Indication:Hematuria Start:08-Apr-2019 Instruction Type:Patient Education Patient Instructions Indication:Hematuria Start:08-Apr-2019 Instruction Type:Provider Instructions for Treatment How to access health informa tion online Indication:Encounter for screening mammogram for breast cancer (Renamed from Encounter for screening mammogram for malignant neoplasm of breast) Start:27-Nov-2018 Instruction Type:Patient Education How to access health informa tion online - Detail Indication:Encounter for screening mammogram for breast cancer (Renamed from Encounter for screening mammogram for malignant neoplasm of breast) Start:27-Nov-2018 Instruction Type:Patient Education Patient Instructions Indication:Encounter for screening mammogram for breast cancer (Renamed from Encounter for screening mammogram for malignant neoplasm of breast) Start:27-Nov-2018 Instruction Type:Provider Instructions for Treatment How to access health informa tion online Indication:Need for prophylactic vaccination and inoculation against influenza (Renamed from Need for immunization against influenza) Start:11-Apr-2018 Instruction Type:Patient Education How to access health informa tion online - Detail Indication:Need for prophylactic vaccination and inoculation against influenza (Renamed from Need for immunization against influenza) Start:11-Apr-2018 Instruction Type:Patient Education Patient Instructions Indication:Need for prophylactic vaccination and inoculation against influenza (Renamed from Need for immunization against influenza) Start:11-Apr-2018 Instruction Type:Provider Instructions for Treatment How to access health informa tion online Indication:BMI less than 19,adult Start:07-Feb-2018 Instruction Type:Patient Education How to access health informa tion online - Detail Indication:BMI less than 19,adult Start:07-Feb-2018 Instruction Type:Patient Education Patient Instructions Indication:BMI less than 19,adult Start:07-Feb-2018 Instruction Type:Provider Instructions for Treatment How to access health informa tion online Indication:BMI less than 19,adult Start:23-Aug-2017 Instruction Type:Patient Education How to access health informa tion online - Detail Indication:BMI less than 19,adult Start:23-Aug-2017 Instruction Type:Patient Education Patient Instructions Indication:BMI less than 19,adult Start:23-Aug-2017 Instruction Type:Provider Instructions for Treatment How to access health informa tion online Indication:Non-smoker Start:08-Oct-2016 Instruction Type:Patient Education How to access health informa tion online - Detail Indication:Non-smoker Start:08-Oct-2016 Instruction Type:Patient Education Patient Instructions Indication:Non-smoker Start:08-Oct-2016 Instruction Type:Provider Instructions for Treatment How to access health informa tion online Indication:Foot pain Start:19-Aug-2015 Instruction Type:Patient Education How to access health informa tion online - Detail Indication:Foot pain Start:19-Aug-2015 Instruction Type:Patient Education Patient Instructions Indication:Foot pain Start:19-Aug-2015 Instruction Type:Provider Instructions for Treatment How to access health informa tion online Indication:Foot pain Start:12-Aug-2015 Instruction Type:Patient Education How to access health informa tion online - Detail Indication:Foot pain Start:12-Aug-2015 Instruction Type:Patient Education Patient Instructions Indication:Foot pain Start:12-Aug-2015 Instruction Type:Provider Instructions for Treatment How to access health informa tion online Indication:Acute sinusitis Start:23-May-2015 Instruction Type:Patient Education How to access health informa tion online - Detail Indication:Acute sinusitis Start:23-May-2015 Instruction Type:Patient Education Patient Instructions Indication:Acute sinusitis Start:23-May-2015 Instruction Type:Provider Instructions for Treatment Patient Instructions Indication:Acne Start:15-Sep-2014 Instruction Type:Provider Instructions for Treatment Patient Instructions Indication:Need for prophylactic vaccination and inoculation against influenza Start:27-Apr-2014 Instruction Type:Provider Instructions for Treatment Patient Instructions Indication:Osteopenia Start:11-Jan-2014 Instruction Type:Provider Instructions for Treatment Patient Instructions Indication:Obstructive sleep apnea, adult Start:30-Nov-2013 Instruction Type:Provider Instructions for Treatment Patient Instructions Indication:Fatigue Start:26-Oct-2013 Instruction Type:Provider Instructions for Treatment Patient Instructions Indication:Paresthesia Start:13-Jan-2013 Instruction Type:Provider Instructions for Treatment Patient Instructions Indication:Paresthesia Start:15-Dec-2012 Instruction Type:Provider Instructions for Treatment Patient Instructions Indication:Chronic sinusitis Start:26-Nov-2012 Instruction Type:Provider Instructions for Treatment Patient Instructions Indication:Acne Start:01-Sep-2012 Instruction Type:Provider Instructions for Treatment Patient Instructions Indication:Paresthesia Start:18-Mar-2012 Instruction Type:Provider Instructions for Treatment Name Dates Details How to access health informa tion online Indication:Hematuria Start:24-Feb-2020 Instruction Type:Patient Education How to access health informa tion online - Detail Indication:Hematuria Start:24-Feb-2020 Instruction Type:Patient Education Patient Instructions Indication:Hematuria Start:24-Feb-2020 Instruction Type:Provider Instructions for Treatment How to access health informa tion online Indication:Non-smoker Start:01-Jul-2019 Instruction Type:Patient Education How to access health informa tion online - Detail Indication:Non-smoker Start:01-Jul-2019 Instruction Type:Patient Education Patient Instructions Indication:Non-smoker Start:01-Jul-2019 Instruction Type:Provider Instructions for Treatment How to access health informa tion online Indication:BMI 20.0-20.9, adult Start:17-Jun-2019 Instruction Type:Patient Education How to access health informa tion online - Detail Indication:BMI 20.0-20.9, adult Start:17-Jun-2019 Instruction Type:Patient Education Patient Instructions Indication:BMI 20.0-20.9, adult Start:17-Jun-2019 Instruction Type:Provider Instructions for Treatment How to access health informa tion online Indication:Hematuria Start:08-Apr-2019 Instruction Type:Patient Education How to access health informa tion online - Detail Indication:Hematuria Start:08-Apr-2019 Instruction Type:Patient Education Patient Instructions Indication:Hematuria Start:08-Apr-2019 Instruction Type:Provider Instructions for Treatment How to access health informa tion online Indication:Encounter for screening mammogram for breast cancer (Renamed from Encounter for screening mammogram for malignant neoplasm of breast) Start:27-Nov-2018 Instruction Type:Patient Education How to access health informa tion online - Detail Indication:Encounter for screening mammogram for breast cancer (Renamed from Encounter for screening mammogram for malignant neoplasm of breast) Start:27-Nov-2018 Instruction Type:Patient Education Patient Instructions Indication:Encounter for screening mammogram for breast cancer (Renamed from Encounter for screening mammogram for malignant neoplasm of breast) Start:27-Nov-2018 Instruction Type:Provider Instructions for Treatment How to access health informa tion online Indication:Need for prophylactic vaccination and inoculation against influenza (Renamed from Need for immunization against influenza) Start:11-Apr-2018 Instruction Type:Patient Education How to access health informa tion online - Detail Indication:Need for prophylactic vaccination and inoculation against influenza (Renamed from Need for immunization against influenza) Start:11-Apr-2018 Instruction Type:Patient Education Patient Instructions Indication:Need for prophylactic vaccination and inoculation against influenza (Renamed from Need for immunization against influenza) Start:11-Apr-2018 Instruction Type:Provider Instructions for Treatment How to access health informa tion online Indication:BMI less than 19,adult Start:07-Feb-2018 Instruction Type:Patient Education How to access health informa tion online - Detail Indication:BMI less than 19,adult Start:07-Feb-2018 Instruction Type:Patient Education Patient Instructions Indication:BMI less than 19,adult Start:07-Feb-2018 Instruction Type:Provider Instructions for Treatment How to access health informa tion online Indication:BMI less than 19,adult Start:23-Aug-2017 Instruction Type:Patient Education How to access health informa tion online - Detail Indication:BMI less than 19,adult Start:23-Aug-2017 Instruction Type:Patient Education Patient Instructions Indication:BMI less than 19,adult Start:23-Aug-2017 Instruction Type:Provider Instructions for Treatment How to access health informa tion online Indication:Non-smoker Start:08-Oct-2016 Instruction Type:Patient Education How to access health informa tion online - Detail Indication:Non-smoker Start:08-Oct-2016 Instruction Type:Patient Education Patient Instructions Indication:Non-smoker Start:08-Oct-2016 Instruction Type:Provider Instructions for Treatment How to access health informa tion online Indication:Foot pain Start:19-Aug-2015 Instruction Type:Patient Education How to access health informa tion online - Detail Indication:Foot pain Start:19-Aug-2015 Instruction Type:Patient Education Patient Instructions Indication:Foot pain Start:19-Aug-2015 Instruction Type:Provider Instructions for Treatment How to access health informa tion online Indication:Foot pain Start:12-Aug-2015 Instruction Type:Patient Education How to access health informa tion online - Detail Indication:Foot pain Start:12-Aug-2015 Instruction Type:Patient Education Patient Instructions Indication:Foot pain Start:12-Aug-2015 Instruction Type:Provider Instructions for Treatment How to access health informa tion online Indication:Acute sinusitis Start:23-May-2015 Instruction Type:Patient Education How to access health informa tion online - Detail Indication:Acute sinusitis Start:23-May-2015 Instruction Type:Patient Education Patient Instructions Indication:Acute sinusitis Start:23-May-2015 Instruction Type:Provider Instructions for Treatment Patient Instructions Indication:Acne Start:15-Sep-2014 Instruction Type:Provider Instructions for Treatment Patient Instructions Indication:Need for prophylactic vaccination and inoculation against influenza Start:27-Apr-2014 Instruction Type:Provider Instructions for Treatment Patient Instructions Indication:Osteopenia Start:11-Jan-2014 Instruction Type:Provider Instructions for Treatment Patient Instructions Indication:Obstructive sleep apnea, adult Start:30-Nov-2013 Instruction Type:Provider Instructions for Treatment Patient Instructions Indication:Fatigue Start:26-Oct-2013 Instruction Type:Provider Instructions for Treatment Patient Instructions Indication:Paresthesia Start:13-Jan-2013 Instruction Type:Provider Instructions for Treatment Patient Instructions Indication:Paresthesia Start:15-Dec-2012 Instruction Type:Provider Instructions for Treatment Patient Instructions Indication:Chronic sinusitis Start:26-Nov-2012 Instruction Type:Provider Instructions for Treatment Patient Instructions Indication:Acne Start:01-Sep-2012 Instruction Type:Provider Instructions for Treatment Patient Instructions Indication:Paresthesia Start:18-Mar-2012 Instruction Type:Provider Instructions for Treatment Name Dates Details How to access health informa tion online Indication:Hematuria Start:24-Feb-2020 Instruction Type:Patient Education How to access health informa tion online - Detail Indication:Hematuria Start:24-Feb-2020 Instruction Type:Patient Education Patient Instructions Indication:Hematuria Start:24-Feb-2020 Instruction Type:Provider Instructions for Treatment How to access health informa tion online Indication:Non-smoker Start:01-Jul-2019 Instruction Type:Patient Education How to access health informa tion online - Detail Indication:Non-smoker Start:01-Jul-2019 Instruction Type:Patient Education Patient Instructions Indication:Non-smoker Start:01-Jul-2019 Instruction Type:Provider Instructions for Treatment How to access health informa tion online Indication:BMI 20.0-20.9, adult Start:17-Jun-2019 Instruction Type:Patient Education How to access health informa tion online - Detail Indication:BMI 20.0-20.9, adult Start:17-Jun-2019 Instruction Type:Patient Education Patient Instructions Indication:BMI 20.0-20.9, adult Start:17-Jun-2019 Instruction Type:Provider Instructions for Treatment How to access health informa tion online Indication:Hematuria Start:08-Apr-2019 Instruction Type:Patient Education How to access health informa tion online - Detail Indication:Hematuria Start:08-Apr-2019 Instruction Type:Patient Education Patient Instructions Indication:Hematuria Start:08-Apr-2019 Instruction Type:Provider Instructions for Treatment How to access health informa tion online Indication:Encounter for screening mammogram for breast cancer (Renamed from Encounter for screening mammogram for malignant neoplasm of breast) Start:27-Nov-2018 Instruction Type:Patient Education How to access health informa tion online - Detail Indication:Encounter for screening mammogram for breast cancer (Renamed from Encounter for screening mammogram for malignant neoplasm of breast) Start:27-Nov-2018 Instruction Type:Patient Education Patient Instructions Indication:Encounter for screening mammogram for breast cancer (Renamed from Encounter for screening mammogram for malignant neoplasm of breast) Start:27-Nov-2018 Instruction Type:Provider Instructions for Treatment How to access health informa tion online Indication:Need for prophylactic vaccination and inoculation against influenza (Renamed from Need for immunization against influenza) Start:11-Apr-2018 Instruction Type:Patient Education How to access health informa tion online - Detail Indication:Need for prophylactic vaccination and inoculation against influenza (Renamed from Need for immunization against influenza) Start:11-Apr-2018 Instruction Type:Patient Education Patient Instructions Indication:Need for prophylactic vaccination and inoculation against influenza (Renamed from Need for immunization against influenza) Start:11-Apr-2018 Instruction Type:Provider Instructions for Treatment How to access health informa tion online Indication:BMI less than 19,adult Start:07-Feb-2018 Instruction Type:Patient Education How to access health informa tion online - Detail Indication:BMI less than 19,adult Start:07-Feb-2018 Instruction Type:Patient Education Patient Instructions Indication:BMI less than 19,adult Start:07-Feb-2018 Instruction Type:Provider Instructions for Treatment How to access health informa tion online Indication:BMI less than 19,adult Start:23-Aug-2017 Instruction Type:Patient Education How to access health informa tion online - Detail Indication:BMI less than 19,adult Start:23-Aug-2017 Instruction Type:Patient Education Patient Instructions Indication:BMI less than 19,adult Start:23-Aug-2017 Instruction Type:Provider Instructions for Treatment How to access health informa tion online Indication:Non-smoker Start:08-Oct-2016 Instruction Type:Patient Education How to access health informa tion online - Detail Indication:Non-smoker Start:08-Oct-2016 Instruction Type:Patient Education Patient Instructions Indication:Non-smoker Start:08-Oct-2016 Instruction Type:Provider Instructions for Treatment How to access health informa tion online Indication:Foot pain Start:19-Aug-2015 Instruction Type:Patient Education How to access health informa tion online - Detail Indication:Foot pain Start:19-Aug-2015 Instruction Type:Patient Education Patient Instructions Indication:Foot pain Start:19-Aug-2015 Instruction Type:Provider Instructions for Treatment How to access health informa tion online Indication:Foot pain Start:12-Aug-2015 Instruction Type:Patient Education How to access health informa tion online - Detail Indication:Foot pain Start:12-Aug-2015 Instruction Type:Patient Education Patient Instructions Indication:Foot pain Start:12-Aug-2015 Instruction Type:Provider Instructions for Treatment How to access health informa tion online Indication:Acute sinusitis Start:23-May-2015 Instruction Type:Patient Education How to access health informa tion online - Detail Indication:Acute sinusitis Start:23-May-2015 Instruction Type:Patient Education Patient Instructions Indication:Acute sinusitis Start:23-May-2015 Instruction Type:Provider Instructions for Treatment Patient Instructions Indication:Acne Start:15-Sep-2014 Instruction Type:Provider Instructions for Treatment Patient Instructions Indication:Need for prophylactic vaccination and inoculation against influenza Start:27-Apr-2014 Instruction Type:Provider Instructions for Treatment Patient Instructions Indication:Osteopenia Start:11-Jan-2014 Instruction Type:Provider Instructions for Treatment Patient Instructions Indication:Obstructive sleep apnea, adult Start:30-Nov-2013 Instruction Type:Provider Instructions for Treatment Patient Instructions Indication:Fatigue Start:26-Oct-2013 Instruction Type:Provider Instructions for Treatment Patient Instructions Indication:Paresthesia Start:13-Jan-2013 Instruction Type:Provider Instructions for Treatment Patient Instructions Indication:Paresthesia Start:15-Dec-2012 Instruction Type:Provider Instructions for Treatment Patient Instructions Indication:Chronic sinusitis Start:26-Nov-2012 Instruction Type:Provider Instructions for Treatment Patient Instructions Indication:Acne Start:01-Sep-2012 Instruction Type:Provider Instructions for Treatment Patient Instructions Indication:Paresthesia Start:18-Mar-2012 Instruction Type:Provider Instructions for Treatment Name Dates Details How to access health informa tion online Indication:Hematuria Start:24-Feb-2020 Instruction Type:Patient Education How to access health informa tion online - Detail Indication:Hematuria Start:24-Feb-2020 Instruction Type:Patient Education Patient Instructions Indication:Hematuria Start:24-Feb-2020 Instruction Type:Provider Instructions for Treatment How to access health informa tion online Indication:Non-smoker Start:01-Jul-2019 Instruction Type:Patient Education How to access health informa tion online - Detail Indication:Non-smoker Start:01-Jul-2019 Instruction Type:Patient Education Patient Instructions Indication:Non-smoker Start:01-Jul-2019 Instruction Type:Provider Instructions for Treatment How to access health informa tion online Indication:BMI 20.0-20.9, adult Start:17-Jun-2019 Instruction Type:Patient Education How to access health informa tion online - Detail Indication:BMI 20.0-20.9, adult Start:17-Jun-2019 Instruction Type:Patient Education Patient Instructions Indication:BMI 20.0-20.9, adult Start:17-Jun-2019 Instruction Type:Provider Instructions for Treatment How to access health informa tion online Indication:Hematuria Start:08-Apr-2019 Instruction Type:Patient Education How to access health informa tion online - Detail Indication:Hematuria Start:08-Apr-2019 Instruction Type:Patient Education Patient Instructions Indication:Hematuria Start:08-Apr-2019 Instruction Type:Provider Instructions for Treatment How to access health informa tion online Indication:Encounter for screening mammogram for breast cancer (Renamed from Encounter for screening mammogram for malignant neoplasm of breast) Start:27-Nov-2018 Instruction Type:Patient Education How to access health informa tion online - Detail Indication:Encounter for screening mammogram for breast cancer (Renamed from Encounter for screening mammogram for malignant neoplasm of breast) Start:27-Nov-2018 Instruction Type:Patient Education Patient Instructions Indication:Encounter for screening mammogram for breast cancer (Renamed from Encounter for screening mammogram for malignant neoplasm of breast) Start:27-Nov-2018 Instruction Type:Provider Instructions for Treatment How to access health informa tion online Indication:Need for prophylactic vaccination and inoculation against influenza (Renamed from Need for immunization against influenza) Start:11-Apr-2018 Instruction Type:Patient Education How to access health informa tion online - Detail Indication:Need for prophylactic vaccination and inoculation against influenza (Renamed from Need for immunization against influenza) Start:11-Apr-2018 Instruction Type:Patient Education Patient Instructions Indication:Need for prophylactic vaccination and inoculation against influenza (Renamed from Need for immunization against influenza) Start:11-Apr-2018 Instruction Type:Provider Instructions for Treatment How to access health informa tion online Indication:BMI less than 19,adult Start:07-Feb-2018 Instruction Type:Patient Education How to access health informa tion online - Detail Indication:BMI less than 19,adult Start:07-Feb-2018 Instruction Type:Patient Education Patient Instructions Indication:BMI less than 19,adult Start:07-Feb-2018 Instruction Type:Provider Instructions for Treatment How to access health informa tion online Indication:BMI less than 19,adult Start:23-Aug-2017 Instruction Type:Patient Education How to access health informa tion online - Detail Indication:BMI less than 19,adult Start:23-Aug-2017 Instruction Type:Patient Education Patient Instructions Indication:BMI less than 19,adult Start:23-Aug-2017 Instruction Type:Provider Instructions for Treatment How to access health informa tion online Indication:Non-smoker Start:08-Oct-2016 Instruction Type:Patient Education How to access health informa tion online - Detail Indication:Non-smoker Start:08-Oct-2016 Instruction Type:Patient Education Patient Instructions Indication:Non-smoker Start:08-Oct-2016 Instruction Type:Provider Instructions for Treatment How to access health informa tion online Indication:Foot pain Start:19-Aug-2015 Instruction Type:Patient Education How to access health informa tion online - Detail Indication:Foot pain Start:19-Aug-2015 Instruction Type:Patient Education Patient Instructions Indication:Foot pain Start:19-Aug-2015 Instruction Type:Provider Instructions for Treatment How to access health informa tion online Indication:Foot pain Start:12-Aug-2015 Instruction Type:Patient Education How to access health informa tion online - Detail Indication:Foot pain Start:12-Aug-2015 Instruction Type:Patient Education Patient Instructions Indication:Foot pain Start:12-Aug-2015 Instruction Type:Provider Instructions for Treatment How to access health informa tion online Indication:Acute sinusitis Start:23-May-2015 Instruction Type:Patient Education How to access health informa tion online - Detail Indication:Acute sinusitis Start:23-May-2015 Instruction Type:Patient Education Patient Instructions Indication:Acute sinusitis Start:23-May-2015 Instruction Type:Provider Instructions for Treatment Patient Instructions Indication:Acne Start:15-Sep-2014 Instruction Type:Provider Instructions for Treatment Patient Instructions Indication:Need for prophylactic vaccination and inoculation against influenza Start:27-Apr-2014 Instruction Type:Provider Instructions for Treatment Patient Instructions Indication:Osteopenia Start:11-Jan-2014 Instruction Type:Provider Instructions for Treatment Patient Instructions Indication:Obstructive sleep apnea, adult Start:30-Nov-2013 Instruction Type:Provider Instructions for Treatment Patient Instructions Indication:Fatigue Start:26-Oct-2013 Instruction Type:Provider Instructions for Treatment Patient Instructions Indication:Paresthesia Start:13-Jan-2013 Instruction Type:Provider Instructions for Treatment Patient Instructions Indication:Paresthesia Start:15-Dec-2012 Instruction Type:Provider Instructions for Treatment Patient Instructions Indication:Chronic sinusitis Start:26-Nov-2012 Instruction Type:Provider Instructions for Treatment Patient Instructions Indication:Acne Start:01-Sep-2012 Instruction Type:Provider Instructions for Treatment Patient Instructions Indication:Paresthesia Start:18-Mar-2012 Instruction Type:Provider Instructions for Treatment Name Dates Details How to access health informa tion online Indication:Hematuria Start:24-Feb-2020 Instruction Type:Patient Education How to access health informa tion online - Detail Indication:Hematuria Start:24-Feb-2020 Instruction Type:Patient Education Patient Instructions Indication:Hematuria Start:24-Feb-2020 Instruction Type:Provider Instructions for Treatment How to access health informa tion online Indication:Non-smoker Start:01-Jul-2019 Instruction Type:Patient Education How to access health informa tion online - Detail Indication:Non-smoker Start:01-Jul-2019 Instruction Type:Patient Education Patient Instructions Indication:Non-smoker Start:01-Jul-2019 Instruction Type:Provider Instructions for Treatment How to access health informa tion online Indication:BMI 20.0-20.9, adult Start:17-Jun-2019 Instruction Type:Patient Education How to access health informa tion online - Detail Indication:BMI 20.0-20.9, adult Start:17-Jun-2019 Instruction Type:Patient Education Patient Instructions Indication:BMI 20.0-20.9, adult Start:17-Jun-2019 Instruction Type:Provider Instructions for Treatment How to access health informa tion online Indication:Hematuria Start:08-Apr-2019 Instruction Type:Patient Education How to access health informa tion online - Detail Indication:Hematuria Start:08-Apr-2019 Instruction Type:Patient Education Patient Instructions Indication:Hematuria Start:08-Apr-2019 Instruction Type:Provider Instructions for Treatment How to access health informa tion online Indication:Encounter for screening mammogram for breast cancer (Renamed from Encounter for screening mammogram for malignant neoplasm of breast) Start:27-Nov-2018 Instruction Type:Patient Education How to access health informa tion online - Detail Indication:Encounter for screening mammogram for breast cancer (Renamed from Encounter for screening mammogram for malignant neoplasm of breast) Start:27-Nov-2018 Instruction Type:Patient Education Patient Instructions Indication:Encounter for screening mammogram for breast cancer (Renamed from Encounter for screening mammogram for malignant neoplasm of breast) Start:27-Nov-2018 Instruction Type:Provider Instructions for Treatment How to access health informa tion online Indication:Need for prophylactic vaccination and inoculation against influenza (Renamed from Need for immunization against influenza) Start:11-Apr-2018 Instruction Type:Patient Education How to access health informa tion online - Detail Indication:Need for prophylactic vaccination and inoculation against influenza (Renamed from Need for immunization against influenza) Start:11-Apr-2018 Instruction Type:Patient Education Patient Instructions Indication:Need for prophylactic vaccination and inoculation against influenza (Renamed from Need for immunization against influenza) Start:11-Apr-2018 Instruction Type:Provider Instructions for Treatment How to access health informa tion online Indication:BMI less than 19,adult Start:07-Feb-2018 Instruction Type:Patient Education How to access health informa tion online - Detail Indication:BMI less than 19,adult Start:07-Feb-2018 Instruction Type:Patient Education Patient Instructions Indication:BMI less than 19,adult Start:07-Feb-2018 Instruction Type:Provider Instructions for Treatment How to access health informa tion online Indication:BMI less than 19,adult Start:23-Aug-2017 Instruction Type:Patient Education How to access health informa tion online - Detail Indication:BMI less than 19,adult Start:23-Aug-2017 Instruction Type:Patient Education Patient Instructions Indication:BMI less than 19,adult Start:23-Aug-2017 Instruction Type:Provider Instructions for Treatment How to access health informa tion online Indication:Non-smoker Start:08-Oct-2016 Instruction Type:Patient Education How to access health informa tion online - Detail Indication:Non-smoker Start:08-Oct-2016 Instruction Type:Patient Education Patient Instructions Indication:Non-smoker Start:08-Oct-2016 Instruction Type:Provider Instructions for Treatment How to access health informa tion online Indication:Foot pain Start:19-Aug-2015 Instruction Type:Patient Education How to access health informa tion online - Detail Indication:Foot pain Start:19-Aug-2015 Instruction Type:Patient Education Patient Instructions Indication:Foot pain Start:19-Aug-2015 Instruction Type:Provider Instructions for Treatment How to access health informa tion online Indication:Foot pain Start:12-Aug-2015 Instruction Type:Patient Education How to access health informa tion online - Detail Indication:Foot pain Start:12-Aug-2015 Instruction Type:Patient Education Patient Instructions Indication:Foot pain Start:12-Aug-2015 Instruction Type:Provider Instructions for Treatment How to access health informa tion online Indication:Acute sinusitis Start:23-May-2015 Instruction Type:Patient Education How to access health informa tion online - Detail Indication:Acute sinusitis Start:23-May-2015 Instruction Type:Patient Education Patient Instructions Indication:Acute sinusitis Start:23-May-2015 Instruction Type:Provider Instructions for Treatment Patient Instructions Indication:Acne Start:15-Sep-2014 Instruction Type:Provider Instructions for Treatment Patient Instructions Indication:Need for prophylactic vaccination and inoculation against influenza Start:27-Apr-2014 Instruction Type:Provider Instructions for Treatment Patient Instructions Indication:Osteopenia Start:11-Jan-2014 Instruction Type:Provider Instructions for Treatment Patient Instructions Indication:Obstructive sleep apnea, adult Start:30-Nov-2013 Instruction Type:Provider Instructions for Treatment Patient Instructions Indication:Fatigue Start:26-Oct-2013 Instruction Type:Provider Instructions for Treatment Patient Instructions Indication:Paresthesia Start:13-Jan-2013 Instruction Type:Provider Instructions for Treatment Patient Instructions Indication:Paresthesia Start:15-Dec-2012 Instruction Type:Provider Instructions for Treatment Patient Instructions Indication:Chronic sinusitis Start:26-Nov-2012 Instruction Type:Provider Instructions for Treatment Patient Instructions Indication:Acne Start:01-Sep-2012 Instruction Type:Provider Instructions for Treatment Patient Instructions Indication:Paresthesia Start:18-Mar-2012 Instruction Type:Provider Instructions for Treatment Name Dates Details How to access health informa tion online Indication:Hematuria Start:24-Feb-2020 Instruction Type:Patient Education How to access health informa tion online - Detail Indication:Hematuria Start:24-Feb-2020 Instruction Type:Patient Education Patient Instructions Indication:Hematuria Start:24-Feb-2020 Instruction Type:Provider Instructions for Treatment How to access health informa tion online Indication:Non-smoker Start:01-Jul-2019 Instruction Type:Patient Education How to access health informa tion online - Detail Indication:Non-smoker Start:01-Jul-2019 Instruction Type:Patient Education Patient Instructions Indication:Non-smoker Start:01-Jul-2019 Instruction Type:Provider Instructions for Treatment How to access health informa tion online Indication:BMI 20.0-20.9, adult Start:17-Jun-2019 Instruction Type:Patient Education How to access health informa tion online - Detail Indication:BMI 20.0-20.9, adult Start:17-Jun-2019 Instruction Type:Patient Education Patient Instructions Indication:BMI 20.0-20.9, adult Start:17-Jun-2019 Instruction Type:Provider Instructions for Treatment How to access health informa tion online Indication:Hematuria Start:08-Apr-2019 Instruction Type:Patient Education How to access health informa tion online - Detail Indication:Hematuria Start:08-Apr-2019 Instruction Type:Patient Education Patient Instructions Indication:Hematuria Start:08-Apr-2019 Instruction Type:Provider Instructions for Treatment How to access health informa tion online Indication:Encounter for screening mammogram for breast cancer (Renamed from Encounter for screening mammogram for malignant neoplasm of breast) Start:27-Nov-2018 Instruction Type:Patient Education How to access health informa tion online - Detail Indication:Encounter for screening mammogram for breast cancer (Renamed from Encounter for screening mammogram for malignant neoplasm of breast) Start:27-Nov-2018 Instruction Type:Patient Education Patient Instructions Indication:Encounter for screening mammogram for breast cancer (Renamed from Encounter for screening mammogram for malignant neoplasm of breast) Start:27-Nov-2018 Instruction Type:Provider Instructions for Treatment How to access health informa tion online Indication:Need for prophylactic vaccination and inoculation against influenza (Renamed from Need for immunization against influenza) Start:11-Apr-2018 Instruction Type:Patient Education How to access health informa tion online - Detail Indication:Need for prophylactic vaccination and inoculation against influenza (Renamed from Need for immunization against influenza) Start:11-Apr-2018 Instruction Type:Patient Education Patient Instructions Indication:Need for prophylactic vaccination and inoculation against influenza (Renamed from Need for immunization against influenza) Start:11-Apr-2018 Instruction Type:Provider Instructions for Treatment How to access health informa tion online Indication:BMI less than 19,adult Start:07-Feb-2018 Instruction Type:Patient Education How to access health informa tion online - Detail Indication:BMI less than 19,adult Start:07-Feb-2018 Instruction Type:Patient Education Patient Instructions Indication:BMI less than 19,adult Start:07-Feb-2018 Instruction Type:Provider Instructions for Treatment How to access health informa tion online Indication:BMI less than 19,adult Start:23-Aug-2017 Instruction Type:Patient Education How to access health informa tion online - Detail Indication:BMI less than 19,adult Start:23-Aug-2017 Instruction Type:Patient Education Patient Instructions Indication:BMI less than 19,adult Start:23-Aug-2017 Instruction Type:Provider Instructions for Treatment How to access health informa tion online Indication:Non-smoker Start:08-Oct-2016 Instruction Type:Patient Education How to access health informa tion online - Detail Indication:Non-smoker Start:08-Oct-2016 Instruction Type:Patient Education Patient Instructions Indication:Non-smoker Start:08-Oct-2016 Instruction Type:Provider Instructions for Treatment How to access health informa tion online Indication:Foot pain Start:19-Aug-2015 Instruction Type:Patient Education How to access health informa tion online - Detail Indication:Foot pain Start:19-Aug-2015 Instruction Type:Patient Education Patient Instructions Indication:Foot pain Start:19-Aug-2015 Instruction Type:Provider Instructions for Treatment How to access health informa tion online Indication:Foot pain Start:12-Aug-2015 Instruction Type:Patient Education How to access health informa tion online - Detail Indication:Foot pain Start:12-Aug-2015 Instruction Type:Patient Education Patient Instructions Indication:Foot pain Start:12-Aug-2015 Instruction Type:Provider Instructions for Treatment How to access health informa tion online Indication:Acute sinusitis Start:23-May-2015 Instruction Type:Patient Education How to access health informa tion online - Detail Indication:Acute sinusitis Start:23-May-2015 Instruction Type:Patient Education Patient Instructions Indication:Acute sinusitis Start:23-May-2015 Instruction Type:Provider Instructions for Treatment Patient Instructions Indication:Acne Start:15-Sep-2014 Instruction Type:Provider Instructions for Treatment Patient Instructions Indication:Need for prophylactic vaccination and inoculation against influenza Start:27-Apr-2014 Instruction Type:Provider Instructions for Treatment Patient Instructions Indication:Osteopenia Start:11-Jan-2014 Instruction Type:Provider Instructions for Treatment Patient Instructions Indication:Obstructive sleep apnea, adult Start:30-Nov-2013 Instruction Type:Provider Instructions for Treatment Patient Instructions Indication:Fatigue Start:26-Oct-2013 Instruction Type:Provider Instructions for Treatment Patient Instructions Indication:Paresthesia Start:13-Jan-2013 Instruction Type:Provider Instructions for Treatment Patient Instructions Indication:Paresthesia Start:15-Dec-2012 Instruction Type:Provider Instructions for Treatment Patient Instructions Indication:Chronic sinusitis Start:26-Nov-2012 Instruction Type:Provider Instructions for Treatment Patient Instructions Indication:Acne Start:01-Sep-2012 Instruction Type:Provider Instructions for Treatment Patient Instructions Indication:Paresthesia Start:18-Mar-2012 Instruction Type:Provider Instructions for Treatment Name Dates Details Need for prophylactic vaccin ation and inoculation against influenza (Renamed from Need for immunization against influenza) : How to access health information online Indication:Need for prophylactic vaccination and inoculation against influenza (Renamed from Need for immunization against influenza) Need for prophylactic vaccin ation and inoculation against influenza (Renamed from Need for immunization against influenza) : How to access health information online - Detail Indication:Need for prophylactic vaccination and inoculation against influenza (Renamed from Need for immunization against influenza) Need for prophylactic vaccin ation and inoculation against influenza (Renamed from Need for immunization against influenza) : Patient Instructions Indication:Need for prophylactic vaccination and inoculation against influenza (Renamed from Need for immunization against influenza) BMI less than 19,adult : How to access health information online Indication:BMI less than 19,adult BMI less than 19,adult : How to access health information online - Detail Indication:BMI less than 19,adult BMI less than 19,adult : Pat ient Instructions Indication:BMI less than 19,adult Non-smoker : How to access h ealth information online Indication:Non-smoker Non-smoker : How to access h ealth information online - Detail Indication:Non-smoker Non-smoker : Patient Instruc tions Indication:Non-smoker Foot pain : How to access he alth information online Indication:Foot pain Foot pain : How to access he alth information online - Detail Indication:Foot pain Foot pain : Patient Instruct ions Indication:Foot pain Acute sinusitis : How to acc ess health information online Indication:Acute sinusitis Acute sinusitis : How to acc ess health information online - Detail Indication:Acute sinusitis Acute sinusitis : Patient In structions Indication:Acute sinusitis Acne : Patient Instructions Indication:Acne Need for prophylactic vaccin ation and inoculation against influenza : Patient Instructions Indication:Need for prophylactic vaccination and inoculation against influenza Osteopenia : Patient Instruc tions Indication:Osteopenia Obstructive sleep apnea, juliana lt : Patient Instructions Indication:Obstructive sleep apnea, adult Fatigue : Patient Instructio ns Indication:Fatigue Paresthesia : Patient Instru ctions Indication:Paresthesia Chronic sinusitis : Patient Instructions Indication:Chronic sinusitis Name Dates Details How to access health informa tion online Indication:Hematuria Start:08-Apr-2019 Instruction Type:Patient Education How to access health informa tion online - Detail Indication:Hematuria Start:08-Apr-2019 Instruction Type:Patient Education Patient Instructions Indication:Hematuria Start:08-Apr-2019 Instruction Type:Provider Instructions for Treatment How to access health informa tion online Indication:Encounter for screening mammogram for breast cancer (Renamed from Encounter for screening mammogram for malignant neoplasm of breast) Start:27-Nov-2018 Instruction Type:Patient Education How to access health informa tion online - Detail Indication:Encounter for screening mammogram for breast cancer (Renamed from Encounter for screening mammogram for malignant neoplasm of breast) Start:27-Nov-2018 Instruction Type:Patient Education Patient Instructions Indication:Encounter for screening mammogram for breast cancer (Renamed from Encounter for screening mammogram for malignant neoplasm of breast) Start:27-Nov-2018 Instruction Type:Provider Instructions for Treatment How to access health informa tion online Indication:Need for prophylactic vaccination and inoculation against influenza (Renamed from Need for immunization against influenza) Start:11-Apr-2018 Instruction Type:Patient Education How to access health informa tion online - Detail Indication:Need for prophylactic vaccination and inoculation against influenza (Renamed from Need for immunization against influenza) Start:11-Apr-2018 Instruction Type:Patient Education Patient Instructions Indication:Need for prophylactic vaccination and inoculation against influenza (Renamed from Need for immunization against influenza) Start:11-Apr-2018 Instruction Type:Provider Instructions for Treatment How to access health informa tion online Indication:BMI less than 19,adult Start:07-Feb-2018 Instruction Type:Patient Education How to access health informa tion online - Detail Indication:BMI less than 19,adult Start:07-Feb-2018 Instruction Type:Patient Education Patient Instructions Indication:BMI less than 19,adult Start:07-Feb-2018 Instruction Type:Provider Instructions for Treatment How to access health informa tion online Indication:BMI less than 19,adult Start:23-Aug-2017 Instruction Type:Patient Education How to access health informa tion online - Detail Indication:BMI less than 19,adult Start:23-Aug-2017 Instruction Type:Patient Education Patient Instructions Indication:BMI less than 19,adult Start:23-Aug-2017 Instruction Type:Provider Instructions for Treatment How to access health informa tion online Indication:Non-smoker Start:08-Oct-2016 Instruction Type:Patient Education How to access health informa tion online - Detail Indication:Non-smoker Start:08-Oct-2016 Instruction Type:Patient Education Patient Instructions Indication:Non-smoker Start:08-Oct-2016 Instruction Type:Provider Instructions for Treatment How to access health informa tion online Indication:Foot pain Start:19-Aug-2015 Instruction Type:Patient Education How to access health informa tion online - Detail Indication:Foot pain Start:19-Aug-2015 Instruction Type:Patient Education Patient Instructions Indication:Foot pain Start:19-Aug-2015 Instruction Type:Provider Instructions for Treatment How to access health informa tion online Indication:Foot pain Start:12-Aug-2015 Instruction Type:Patient Education How to access health informa tion online - Detail Indication:Foot pain Start:12-Aug-2015 Instruction Type:Patient Education Patient Instructions Indication:Foot pain Start:12-Aug-2015 Instruction Type:Provider Instructions for Treatment How to access health informa tion online Indication:Acute sinusitis Start:23-May-2015 Instruction Type:Patient Education How to access health informa tion online - Detail Indication:Acute sinusitis Start:23-May-2015 Instruction Type:Patient Education Patient Instructions Indication:Acute sinusitis Start:23-May-2015 Instruction Type:Provider Instructions for Treatment Patient Instructions Indication:Acne Start:15-Sep-2014 Instruction Type:Provider Instructions for Treatment Patient Instructions Indication:Need for prophylactic vaccination and inoculation against influenza Start:27-Apr-2014 Instruction Type:Provider Instructions for Treatment Patient Instructions Indication:Osteopenia Start:11-Jan-2014 Instruction Type:Provider Instructions for Treatment Patient Instructions Indication:Obstructive sleep apnea, adult Start:30-Nov-2013 Instruction Type:Provider Instructions for Treatment Patient Instructions Indication:Fatigue Start:26-Oct-2013 Instruction Type:Provider Instructions for Treatment Patient Instructions Indication:Paresthesia Start:13-Jan-2013 Instruction Type:Provider Instructions for Treatment Patient Instructions Indication:Paresthesia Start:15-Dec-2012 Instruction Type:Provider Instructions for Treatment Patient Instructions Indication:Chronic sinusitis Start:26-Nov-2012 Instruction Type:Provider Instructions for Treatment Patient Instructions Indication:Acne Start:01-Sep-2012 Instruction Type:Provider Instructions for Treatment Patient Instructions Indication:Paresthesia Start:18-Mar-2012 Instruction Type:Provider Instructions for Treatment Name Dates Details How to access [employer] [facility] online Indication:Encounter for screening mammogram for breast cancer (Renamed from Encounter for screening mammogram for malignant neoplasm of breast) Start:27-Nov-2018 Instruction Type:Patient Education How to access health informa tion online - Detail Indication:Encounter for screening mammogram for breast cancer (Renamed from Encounter for screening mammogram for malignant neoplasm of breast) Start:27-Nov-2018 Instruction Type:Patient Education Patient Instructions Indication:Encounter for screening mammogram for breast cancer (Renamed from Encounter for screening mammogram for malignant neoplasm of breast) Start:27-Nov-2018 Instruction Type:Provider Instructions for Treatment How to access [employer] informa [employer] online Indication:Need for prophylactic vaccination and inoculation against influenza (Renamed from Need for immunization against influenza) Start:11-Apr-2018 Instruction Type:Patient Education How to access health informa tion online - Detail Indication:Need for prophylactic vaccination and inoculation against influenza (Renamed from Need for immunization against influenza) Start:11-Apr-2018 Instruction Type:Patient Education Patient Instructions Indication:Need for prophylactic vaccination and inoculation against influenza (Renamed from Need for immunization against influenza) Start:11-Apr-2018 Instruction Type:Provider Instructions for Treatment How to access health informa tion online Indication:BMI less than 19,adult Start:07-Feb-2018 Instruction Type:Patient Education How to access health informa tion online - Detail Indication:BMI less than 19,adult Start:07-Feb-2018 Instruction Type:Patient Education Patient Instructions Indication:BMI less than 19,adult Start:07-Feb-2018 Instruction Type:Provider Instructions for Treatment How to access health informa tion online Indication:BMI less than 19,adult Start:23-Aug-2017 Instruction Type:Patient Education How to access health informa tion online - Detail Indication:BMI less than 19,adult Start:23-Aug-2017 Instruction Type:Patient Education Patient Instructions Indication:BMI less than 19,adult Start:23-Aug-2017 Instruction Type:Provider Instructions for Treatment How to access health informa tion online Indication:Non-smoker Start:08-Oct-2016 Instruction Type:Patient Education How to access health informa tion online - Detail Indication:Non-smoker Start:08-Oct-2016 Instruction Type:Patient Education Patient Instructions Indication:Non-smoker Start:08-Oct-2016 Instruction Type:Provider Instructions for Treatment How to access health informa tion online Indication:Foot pain Start:19-Aug-2015 Instruction Type:Patient Education How to access health informa tion online - Detail Indication:Foot pain Start:19-Aug-2015 Instruction Type:Patient Education Patient Instructions Indication:Foot pain Start:19-Aug-2015 Instruction Type:Provider Instructions for Treatment How to access health informa tion online Indication:Foot pain Start:12-Aug-2015 Instruction Type:Patient Education How to access health informa tion online - Detail Indication:Foot pain Start:12-Aug-2015 Instruction Type:Patient Education Patient Instructions Indication:Foot pain Start:12-Aug-2015 Instruction Type:Provider Instructions for Treatment How to access health informa tion online Indication:Acute sinusitis Start:23-May-2015 Instruction Type:Patient Education How to access health informa tion online - Detail Indication:Acute sinusitis Start:23-May-2015 Instruction Type:Patient Education Patient Instructions Indication:Acute sinusitis Start:23-May-2015 Instruction Type:Provider Instructions for Treatment Patient Instructions Indication:Acne Start:15-Sep-2014 Instruction Type:Provider Instructions for Treatment Patient Instructions Indication:Need for prophylactic vaccination and inoculation against influenza Start:27-Apr-2014 Instruction Type:Provider Instructions for Treatment Patient Instructions Indication:Osteopenia Start:11-Jan-2014 Instruction Type:Provider Instructions for Treatment Patient Instructions Indication:Obstructive sleep apnea, adult Start:30-Nov-2013 Instruction Type:Provider Instructions for Treatment Patient Instructions Indication:Fatigue Start:26-Oct-2013 Instruction Type:Provider Instructions for Treatment Patient Instructions Indication:Paresthesia Start:13-Jan-2013 Instruction Type:Provider Instructions for Treatment Patient Instructions Indication:Paresthesia Start:15-Dec-2012 Instruction Type:Provider Instructions for Treatment Patient Instructions Indication:Chronic sinusitis Start:26-Nov-2012 Instruction Type:Provider Instructions for Treatment Patient Instructions Indication:Acne Start:01-Sep-2012 Instruction Type:Provider Instructions for Treatment Patient Instructions Indication:Paresthesia Start:18-Mar-2012 Instruction Type:Provider Instructions for Treatment Name Dates Details How to access health informa tion online Indication:Hematuria Start:24-Feb-2020 Instruction Type:Patient Education How to access health informa tion online - Detail Indication:Hematuria Start:24-Feb-2020 Instruction Type:Patient Education Patient Instructions Indication:Hematuria Start:24-Feb-2020 Instruction Type:Provider Instructions for Treatment How to access health informa tion online Indication:Non-smoker Start:01-Jul-2019 Instruction Type:Patient Education How to access health informa tion online - Detail Indication:Non-smoker Start:01-Jul-2019 Instruction Type:Patient Education Patient Instructions Indication:Non-smoker Start:01-Jul-2019 Instruction Type:Provider Instructions for Treatment How to access health informa tion online Indication:BMI 20.0-20.9, adult Start:17-Jun-2019 Instruction Type:Patient Education How to access health informa tion online - Detail Indication:BMI 20.0-20.9, adult Start:17-Jun-2019 Instruction Type:Patient Education Patient Instructions Indication:BMI 20.0-20.9, adult Start:17-Jun-2019 Instruction Type:Provider Instructions for Treatment How to access health informa tion online Indication:Hematuria Start:08-Apr-2019 Instruction Type:Patient Education How to access health informa tion online - Detail Indication:Hematuria Start:08-Apr-2019 Instruction Type:Patient Education Patient Instructions Indication:Hematuria Start:08-Apr-2019 Instruction Type:Provider Instructions for Treatment How to access health informa tion online Indication:Encounter for screening mammogram for breast cancer (Renamed from Encounter for screening mammogram for malignant neoplasm of breast) Start:27-Nov-2018 Instruction Type:Patient Education How to access health informa tion online - Detail Indication:Encounter for screening mammogram for breast cancer (Renamed from Encounter for screening mammogram for malignant neoplasm of breast) Start:27-Nov-2018 Instruction Type:Patient Education Patient Instructions Indication:Encounter for screening mammogram for breast cancer (Renamed from Encounter for screening mammogram for malignant neoplasm of breast) Start:27-Nov-2018 Instruction Type:Provider Instructions for Treatment How to access health informa tion online Indication:Need for prophylactic vaccination and inoculation against influenza (Renamed from Need for immunization against influenza) Start:11-Apr-2018 Instruction Type:Patient Education How to access health informa tion online - Detail Indication:Need for prophylactic vaccination and inoculation against influenza (Renamed from Need for immunization against influenza) Start:11-Apr-2018 Instruction Type:Patient Education Patient Instructions Indication:Need for prophylactic vaccination and inoculation against influenza (Renamed from Need for immunization against influenza) Start:11-Apr-2018 Instruction Type:Provider Instructions for Treatment How to access health informa tion online Indication:BMI less than 19,adult Start:07-Feb-2018 Instruction Type:Patient Education How to access health informa tion online - Detail Indication:BMI less than 19,adult Start:07-Feb-2018 Instruction Type:Patient Education Patient Instructions Indication:BMI less than 19,adult Start:07-Feb-2018 Instruction Type:Provider Instructions for Treatment How to access health informa tion online Indication:BMI less than 19,adult Start:23-Aug-2017 Instruction Type:Patient Education How to access health informa tion online - Detail Indication:BMI less than 19,adult Start:23-Aug-2017 Instruction Type:Patient Education Patient Instructions Indication:BMI less than 19,adult Start:23-Aug-2017 Instruction Type:Provider Instructions for Treatment How to access health informa tion online Indication:Non-smoker Start:08-Oct-2016 Instruction Type:Patient Education How to access health informa tion online - Detail Indication:Non-smoker Start:08-Oct-2016 Instruction Type:Patient Education Patient Instructions Indication:Non-smoker Start:08-Oct-2016 Instruction Type:Provider Instructions for Treatment How to access health informa tion online Indication:Foot pain Start:19-Aug-2015 Instruction Type:Patient Education How to access health informa tion online - Detail Indication:Foot pain Start:19-Aug-2015 Instruction Type:Patient Education Patient Instructions Indication:Foot pain Start:19-Aug-2015 Instruction Type:Provider Instructions for Treatment How to access health informa tion online Indication:Foot pain Start:12-Aug-2015 Instruction Type:Patient Education How to access health informa tion online - Detail Indication:Foot pain Start:12-Aug-2015 Instruction Type:Patient Education Patient Instructions Indication:Foot pain Start:12-Aug-2015 Instruction Type:Provider Instructions for Treatment How to access health informa tion online Indication:Acute sinusitis Start:23-May-2015 Instruction Type:Patient Education How to access health informa tion online - Detail Indication:Acute sinusitis Start:23-May-2015 Instruction Type:Patient Education Patient Instructions Indication:Acute sinusitis Start:23-May-2015 Instruction Type:Provider Instructions for Treatment Patient Instructions Indication:Acne Start:15-Sep-2014 Instruction Type:Provider Instructions for Treatment Patient Instructions Indication:Need for prophylactic vaccination and inoculation against influenza Start:27-Apr-2014 Instruction Type:Provider Instructions for Treatment Patient Instructions Indication:Osteopenia Start:11-Jan-2014 Instruction Type:Provider Instructions for Treatment Patient Instructions Indication:Obstructive sleep apnea, adult Start:30-Nov-2013 Instruction Type:Provider Instructions for Treatment Patient Instructions Indication:Fatigue Start:26-Oct-2013 Instruction Type:Provider Instructions for Treatment Patient Instructions Indication:Paresthesia Start:13-Jan-2013 Instruction Type:Provider Instructions for Treatment Patient Instructions Indication:Paresthesia Start:15-Dec-2012 Instruction Type:Provider Instructions for Treatment Patient Instructions Indication:Chronic sinusitis Start:26-Nov-2012 Instruction Type:Provider Instructions for Treatment Patient Instructions Indication:Acne Start:01-Sep-2012 Instruction Type:Provider Instructions for Treatment Patient Instructions Indication:Paresthesia Start:18-Mar-2012 Instruction Type:Provider Instructions for Treatment Summary Purpose Advance Directives No Advanced Directives Records Found Name Dates Details Immunization Registry [place] - Effective on 05/01/2022. Expiration date unspecified Effective:01-May-2022 Name Dates Details Immunization Registry [place] - Effective on 05/01/2022. Expiration date unspecified Effective:01-May-2022 Name Dates Details Immunization Registry [place] - Effective on 05/01/2022. Expiration date unspecified Effective:01-May-2022 Name Dates Details Immunization Registry [place] - Effective on 05/01/2022. Expiration date unspecified Effective:01-May-2022 Name Dates Details Immunization Registry [place] - Effective on 05/01/2022. Expiration date unspecified Effective:01-May-2022 Additional Source Comments INFORMATION SOURCE (unrecogn ized section and content) DATE CREATED AUTHOR AUTHOR'S ORGANIZ ATION 09/13/2022 [facility]OR[facility] PERTAINING TO PATIENTS WHO ARE OR HAVE BEEN ENROLLED IN A CHEMICAL DEPENDENCY/SUBSTANCEABUSE PROGRAM, SOME INFORMATION MAY BE OMITTED. This clinical summary was aggregated from multiple sources. Caution should be exercised in using it in the provision of clinical care. This summary normalizes information from multiple sources, and as a consequence, information in this document may materially change the coding, format and clinical context of patient data. In addition, data may be omitted in some cases. CLINICAL DECISIONS SHOULD BE BASED ON THE PRIMARY CLINICAL RECORDS. [employer] provides no warranty or guarantee of the accuracy or completeness of information in this document.
== END | disposition home or self-care (01) ==
PROVIDERS: PCP Internal Medicine; Referring Provider Internal Medicine; Visit Provider Internal Medicine
DX: R10.31 Right lower quadrant pain (principal); N93.9 Abnormal uterine and vaginal bleeding, unspecified
CPT/HCPCS: 36415; 74176; 80053; 84443; 85025; 85652; 86140

== ENCOUNTER → 2023-09-13 | Outpatient (CLI) | payer OTHER, SELFPAY ==
--- NOTE | 2023-09-13 15:24 | US_ITS ---
EXAM: US PELVIS TRANSABDOMINAL AND TRANSVAGINAL, COMPLETE CLINICAL INDICATION: vaginal bleeding, abnormal TECHNIQUE: Transabdominal and endovaginal pelvic ultrasound was performed with grayscale and color Doppler imaging. Endovaginal imaging was used for better evaluation of the endometrium and adnexa. COMPARISON: No relevant prior studies available. FINDINGS: UTERUS/CERVIX: Uterus measures 7.0 x 3.8 x 4.0 cm and is retroflexed. Endometrial thickness is 3 mm. RIGHT OVARY: Right ovary measures 2.2 x 2.1 x 1.6 cm. 1 cm right ovarian cyst is noted. Blood flow is present in the right ovary. LEFT OVARY: Left ovary not identified. FREE FLUID: None. US/Pelvic w/ Transvaginal IMPRESSION: Retroflexed uterus with normal endometrium. Electronically Signed: Papi Terrell MD at 16:52 EST ,
== END | disposition home or self-care (01) ==
LOC: US 15:23
PROVIDERS: PCP Internal Medicine; Referring Provider Internal Medicine; Visit Provider Internal Medicine
DX: N93.9 Abnormal uterine and vaginal bleeding, unspecified (principal)
CPT/HCPCS: 76830; 76856

== ENCOUNTER → 2023-10-09 | Outpatient (CLI) | payer OTHER, SELFPAY ==
--- NOTE | 2023-10-09 12:40 | CT_ITS ---
STUDY: CT ABDOMEN AND PELVIS WITHOUT CONTRAST REASON FOR EXAM: Female, 58 years old. Hematuria microscopic RADIATION DOSAGE (If Supplied By Facility): CTDIvol = ( 5.29 ) mGy, DLP = ( 263.01 ) mGycm TECHNIQUE: Transaxial images were obtained from the dome of the diaphragm to the symphysis pubis without oral contrast, and without intravenous contrast. Sagittal and coronal images were reconstructed. Individualized dose optimization techniques were used for this CT. COMPARISON: None. FINDINGS: The visualized lung bases are unremarkable. The visualized portions of the heart are within normal limits. Normal liver. Normal gallbladder and extrahepatic biliary system. Normal spleen. Normal pancreas. Normal bilateral adrenal glands. Normal right kidney. Normal left kidney. 2 dense objects are seen in the stomach most likely representing recent ingestion of oral medication. Normal small intestine. Normal colon. The appendix is visualized and appears normal. Normal abdominal aorta. Normal inferior vena cava. Normal retroperitoneum. Normal urinary bladder. Normal abdominal wall. Normal osseous structures. CT/Abdomen/Pelvis without Cont IMPRESSION: No acute abnormality is seen. Electronically Signed: Juan Jose Baker MD at 15:14 EDT ,
== END | disposition home or self-care (01) ==
LOC: CT 12:39
PROVIDERS: PCP Internal Medicine; Referring Provider Internal Medicine; Visit Provider Internal Medicine
DX: R31.29 Other microscopic hematuria (principal)
CPT/HCPCS: 74176

== ENCOUNTER → 2024-01-08 | Outpatient (CLI) | payer OTHER, SELFPAY ==
--- NOTE | 2024-01-08 16:13 | RAD_ITS ---
STUDY: X-RAY - LEFT SHOULDER REASON FOR EXAM: Female, 58 years old. LIMITED RANGE OF MOTION -- STAT TECHNIQUE: 4 view(s) of the shoulder. COMPARISON: None. FINDINGS: Mildly narrowed glenohumeral articulation. Normal acromioclavicular joint. Normal acromion. Normal humeral head and visualized proximal humerus. The soft tissue structures are unremarkable. Normal visualized pulmonary apex. RAD/Shoulder min 2 Views IMPRESSION: Mild degenerative changes. No acute fracture or dislocation. Electronically Signed: Jerald Plaza MD at 17:29 EDT ,
--- NOTE | 2024-01-08 16:13 | RAD_ITS ---
STUDY: X-RAY - LEFT RADIUS AND ULNA REASON FOR EXAM: Female, 58 years old. PAIN -- STAT TECHNIQUE: 3 view(s) of the forearm. COMPARISON: None. FINDINGS: There is no demonstrated soft tissue swelling. Acute intra-articular hairline fracture of the radial head otherwise normal radius. Normal visualized ulna. RAD/Forearm 2 Views IMPRESSION: Hairline fracture of the radial head otherwise normal forearm. Electronically Signed: Jerald Plaza MD at 17:32 EDT ,
--- NOTE | 2024-01-08 16:13 | RAD_ITS ---
STUDY: X-RAY - LEFT HUMERUS REASON FOR EXAM: Female, 58 years old. PAIN -- STAT TECHNIQUE: 2 view(s) of the humerus. COMPARISON: None. FINDINGS: Normal visualized humerus. There is no demonstrated fracture or osseous destructive process. There is no demonstrated soft tissue abnormality. RAD/Humerus min 2 Views IMPRESSION: Normal x-ray examination of the humerus. Electronically Signed: Jerald Plaza MD at 17:36 EDT ,
== END | disposition home or self-care (01) ==
PROVIDERS: PCP Internal Medicine; Referring Provider Internal Medicine; Visit Provider Internal Medicine
DX: M79.632 Pain in left forearm (principal); M25.619 Stiffness of unspecified shoulder, not elsewhere classified
CPT/HCPCS: 73030; 73060; 73090

== ENCOUNTER → 2024-02-12 | Outpatient (CLI) | payer OTHER, SELFPAY ==
--- NOTE | 2024-02-12 14:25 | RAD_ITS ---
STUDY: X-RAY - LEFT ELBOW REASON FOR EXAM: Female, 58 years old. Pain. TECHNIQUE: 3 views of the left elbow. COMPARISON: Left elbow radiographs dated 01/17/2024. FINDINGS: Normal visualized humerus and ulna. Again seen is an intra-articular fracture of the radial head, now with up to 1 mm articular surface step-off. Normal ulnotrochlear articulations. There is a moderate elbow joint effusion. The soft tissue structures are unremarkable. RAD/Elbow min 3 Views IMPRESSION: Persistent intra-articular fracture of the radial head, now with up to 1 mm articular surface step-off. Moderate elbow joint effusion. Electronically Signed: Jaspreet Gamez MD at 16:10 EDT ,
--- NOTE | 2024-02-12 14:25 | RAD_ITS ---
STUDY: X-RAY - LEFT HUMERUS REASON FOR EXAM: Female, 58 years old. Pain of left forearm. History of radial head fracture. TECHNIQUE: 2 views of the left humerus. COMPARISON: None. FINDINGS: Normal visualized humerus, without demonstrated fracture or osseous destructive process. Known radial head fracture is not well seen on this study. There is no demonstrated soft tissue abnormality. RAD/Humerus min 2 Views IMPRESSION: Normal x-ray examination of the left humerus. Electronically Signed: Jaspreet Gamez MD at 16:11 EDT ,
== END | disposition home or self-care (01) ==
LOC: MTRAD 14:25
PROVIDERS: PCP Internal Medicine; Referring Provider Orthopaedic Surgery Sports Medicine; Visit Provider Orthopaedic Surgery Sports Medicine
DX: S52.122A Displaced fracture of head of left radius, initial encounter for closed fracture (principal); X58.XXXA Exposure to other specified factors, initial encounter
CPT/HCPCS: 73060; 73080

== ENCOUNTER 2024-02-27 08:30 | Outpatient (RCR) | payer OTHER, SELFPAY ==
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
--- NOTE | 2024-07-14 08:50 | HP.PTDCNRP_ITS ---
Patient Information Patient Information: GUME AGEE was seen in my office for initial evaluation on 01/23/24. The following Plan of Care was established for this patient: POC Established Initial Frequency: 1x/Week Initial Duration: 4 Weeks Anticipated Interventions Patient/Client Instruction: Educate patient on: Condition, Plan of Care, Risk Factors and Benefits of Fitness Program For the Purpose of:: To foster healthy habits, To improve decision making, To facilitate caregiver knowledge, To improve self management, To prevent re-injury and To improve ability to perform tasks related to life management Therapeutic Exercise to Include: Strength training, Flexibilty training, Passive ROM, Active ROM and Scapular Strength/Stabilization For the Purpose of:: To decrease pain, To decrease swelling/inflammation, To increase ROM, To improve health of tissue, To decrease soft tissue restriction and To increase flexibility/ROM Manual Therapy Techniques to Include: Passive ROM and Soft tissue mobilization For the Purpose of:: To decrease pain, To decrease swelling/inflammation and To increase ROM Last Seen Last Seen: This patient was last seen in our office 02/27/24. Pertinent comments regarding their Physical therapy will appear below: Pt. was seen for her elbow fx. Pt. was doing well and was easing back into daily activities. Pt. has not been seen in several months and will be DC from PT at this point in time. At this point I will be discontinuing this patient from physical therapy. I would be happy to see this patient again in the future if found appropriate by t he physician. Thank you! Prabhu Hair, DPT Balance/Gait/Functional tests Balance/Special Test Scores Quick DASH Score: [phone]
== END 2024-02-27 19:00 | disposition home or self-care (01) ==
LOC: PT 08:30
PROVIDERS: PCP Internal Medicine; Referring Provider Orthopaedic Surgery Sports Medicine; Visit Provider Orthopaedic Surgery Sports Medicine
DX: S52.122D Displaced fracture of head of left radius, subsequent encounter for closed fracture with routine healing (principal)
CPT/HCPCS: 97110; 97161

== ENCOUNTER 2024-03-19 07:18 | Outpatient (CLI) | payer OTHER, SELFPAY ==
--- NOTE | 2024-03-19 07:21 | CT_ITS ---
STUDY: CT CHEST WITHOUT CONTRAST REASON FOR EXAM: Female, 58 years old. Encounter for screening for lipoid disorders RADIATION DOSAGE (If Supplied By Facility): CTDIvol = ( 12.19 ) mGy, DLP = ( 195.04 ) mGycm TECHNIQUE: Transaxial imaging was performed without the administration of intravenous contrast material. Individualized dose optimization techniques were used for this CT. COMPARISON: No relevant priors. FINDINGS: CHEST The lungs are normal. There is no demonstrated pleural abnormality. No evidence of coronary artery calcification. Minimal anterior pericardial thickening. Normal mediastinum. Normal hilar regions. Normal unenhanced pulmonary arteries. Normal aorta arch and descending thoracic aorta. There are degenerative changes of the thoracic spine. There is no demonstrated abnormality of the visualized upper abdomen. CT/Limited Chest CT Cardiac Only IMPRESSION: No coronary artery calcification. Electronically Signed: Juan Jose Baker MD at 8:55 EDT ,
--- NOTE | 2024-03-19 07:52 | BD_ITS ---
STUDY: DUAL ENERGY X-RAY ABSORPTIOMETRY / DXA REASON FOR EXAM: Female, 58 years old. Z13.820 TECHNIQUE: Bone Mineral Density (BMD) measurements of lumbar spine and bilateral hips were obtained. COMPARISON: Comparison is made with prior study March 14, 2022. FINDINGS: Lumbar Spine (L1-L4): g/cm2 (0.883) / T-score (-2.0) / Z-score (-0.6) Findings are suggestive of osteopenia with a moderate fracture risk. Left Femur Total: g/cm2 (0.854) / T-score (-0.7) / Z-score (0.2) Left Femoral Neck: g/cm2 (0.731) / T-score (-1.1) / Z-score (0.2) Right Femur Total: g/cm2 (0.925) / T-score (-0.1) / Z-score (0.7) Right Femoral Neck: g/cm2 (0.803) / T-score (-0.4) / Z-score (0.8) The T-Scores on the most recent prior examination were: Lumbar Spine (L1-L4): There has been worsening of bone density since the previous examination. Left Femur Total: which represents a worsening of 2.7%. Right Femur Total: which represents a worsening of 2.4%. BD/Dexa Bone Density Study IMPRESSION: The patient is considered osteopenic as outlined below according to World Bhan[employer] Organization (WHO) criteria with a moderate fracture risk. There has been worsening of bone density since the previous examination. Reference Information: The T-score is the number of standard deviations above or below the standard which is normal for young adults at their peak bone mineral density. The World Health Organization (WHO) interprets the T-scores as follows: Above -1 Normal bone density Between -1 and -2.5 Osteopenia Equal to / or below -2.5 Osteoporosis As a practical clinical guideline, osteopenia may be graded as follows: Mild -1 through -1.5 Moderate -1.6 through -2.0 Severe -2.1 through -2.4 The Z-score is the number of standard deviations above or below age-matched controls. A Z-score of less than -1.5 would be considered abnormal. References: 1. NIH Osteoporosis and Related Bone Diseases www osteo.org 2. International Society for Clinical Densitometry www iscd.org 3. National Osteoporosis Foundation www nof.org Electronically Signed: Juan Jose Baker MD at 9:31 EDT ,
--- NOTE | 2024-03-19 07:52 | BI_ITS ---
MAMMOGRAPHY - BILATERAL SCREENING REASON FOR EXAM: Female, 58 years old. Routine annual screening examination. PERTINENT HISTORY: Sister with breast cancer. History of prior right stereotactic breast biopsy. TECHNIQUE: Digital bilateral breast leisa (3D mammographic acquisition) in the CC and MLO projections. 2-D mediolateral oblique (MLO) and craniocaudad (CC) views of both breasts were obtained. CAD: Full Field Digital Mammography with Computer Added Detection was performed. COMPARISON: Comparison is made with prior study February 25, 2023 and February 06, 2022. FINDINGS: Breast Composition: The breasts are extremely dense, which lowers the sensitivity of mammography. There are no dominant masses or suspicious calcifications. A tissue clip marker is once again seen in the upper deep lateral aspect of the right breast. No other significant abnormalities are identified. There has been no significant change since the prior study. BI/SCRN MAMM (CAD)W/LEISA BILAT IMPRESSION: Stable bilateral screening mammogram. Yearly follow-up mammogram recommended. (A) ASSESSMENT CATEGORY: BIRADS Category 2: Benign. A letter regarding these results will be sent to the patient by the facility within 30 days. Approximately 10% of breast cancers are not detected by mammography. A normal mammogram should not delay biopsy of a clinically suspicious abnormality. [id number] Electronically Signed: Juan Jose Baker MD at 9:07 EDT ,
--- NOTE | 2024-03-19 08:42 | CA.SCORE ---
Calcium Scoring Date of Study:: 03/19/24 Indications Indications: Hyperlipidemia Coronary Calcium Scoring: High-resolution Computed Tomographic imaging of the chest was performed on [03/19/2024], with particular attention paid to the coronary arteries. Images from the examination were analyzed for the presence and extent of coronary artery calcification , using coronary calcium quantification software. The patient tolerated the procedure well and there were no complications. The results of the coronary calcification analysis are provided below. Findings Coronary Artery Left Main (LM): 0 Left Anterior Descending (LAD): 0 Left Circumflex (LCX): 0 Right Coronary Artery (RCA): 0 Total Agatston Score: 0 Percentile Rankin% Calcium Scoring Interpretation: Different methods to categorize the overall amount of coronary plaque. Overall amount CAC SIS Visual of coronary plaque P1 Mild -100 <2 1-2 vessels with mild amount of plaque P2 Moderate 101-300 3-4 1-2 vessels with moderate amount, 3 vessels with mild amount of plaque P3 Severe 301-999 5-7 3 vessels with moderate amount, 1 vessel with severe amount of plaque P4 Extensive >1000 >8 2-3 vessels with severe amount of plaque Conclusion: No atherosclerotic plaquing noted
== END 2024-03-19 23:59 | disposition home or self-care (01) ==
PROVIDERS: PCP Internal Medicine; Referring Provider Obstetrics & Gynecology Gynecology; Visit Provider Obstetrics & Gynecology Gynecology
DX: Z12.31 Encounter for screening mammogram for malignant neoplasm of breast (principal); Z80.3 Family history of malignant neoplasm of breast; Z01.419 Encounter for gynecological examination (general) (routine) without abnormal findings; Z13.820 Encounter for screening for osteoporosis; Z13.220 Encounter for screening for lipoid disorders
CPT/HCPCS: 75571; 76380; 77063; 77067; 77080

== ENCOUNTER → 2024-05-26 | Outpatient (CLI) | payer OTHER, SELFPAY | END | disposition home or self-care (01) | LOC: OPBD 15:52 | PROVIDERS: PCP Internal Medicine; Referring Provider Internal Medicine Endocrinology, Diabetes & Metabolism; Visit Provider Internal Medicine Endocrinology, Diabetes & Metabolism | DX: M85.80 Other specified disorders of bone density and structure, unspecified site (principal) | CPT/HCPCS: 77080 ==

== ENCOUNTER → 2024-12-05 | Outpatient (CLI) | payer OTHER, SELFPAY ==
[2024-12-05 08:31] LABS: Hematocrit 38.3 % (37-47); Hemoglobin 12.8 g/dL (12.0-15.0); Mean Corp Hgb Conc 33.4 g/dL (32-36); Mean Corpuscular Hgb 31.3 pg (27.0-32.0); Mean Corpuscular Volume 93.6 fL (81-99); Mean Platelet Vol. 9.6 fl (6.2-12.0); Platelet Count 366 K/mm3 (150-450); RBC Distribution Width CV 12.7 % (11.6-14.6); RBC Distribution Width SD 43.8 fl (35.1-43.9); Red Blood Count 4.09 M/mm3 (4.2-5.4); White Blood Count 3.4 K/mm3 (4.4-11.0)
[2024-12-05 08:52] LABS: Erythrocyte Sedimentation Rate 11 mm/hr (0-30)
[2024-12-05 09:31] LABS: ALB/GLOB Ratio 1.7 RATIO (0.9-2.4); AST(SGOT) 35 U/L (<=31); Alanine Aminotransfer ALT/SGPT 28 U/L (<=34); Albumin, Serum 4.6 g/dL (3.5-5.0); Alkaline Phosphatase 85 U/L (35-104); Anion Gap 11 (5-15); BUN 13 mg/dL (4-19); BUN/Creat Ratio 18.5 RATIO (10-20); Calcium,Total 9.4 mg/dL (7.6-11.0); Chloride 104 mmol/L (98-108); Cholesterol 227 mg/dL (<=200); Creatinine, Serum 0.72 mg/dL (0.70-1.20); EST Glomerular Filtration Rate 96 (>60); Globulin 2.7 g/dL (2.2-4.2); Glucose 83 mg/dL (70-99); High Density Lipoprotein 117 mg/dL; Low Density Lipoprotein Calc. 103 mg/dL; Potassium 3.8 mmol/L (3.3-5.1); Protein, Total 7.2 g/dL (5.9-8.4); Sodium Level 141 mmol/L (133-145); Total Bilirubin 0.32 mg/dL (0.00-1.30); Triglycerides 36 mg/dL; Very Low Density Lipoprotein 7 mg/dL (5-40); cholesterol:hdl ratio screen 1.94
[2024-12-05 09:42] LABS: CRP < 3.00 mg/L (0.0-3.0); Vitamin B12 657 pg/mL (180-914); Vitamin D,25 Hydroxy 46.3 ng/mL (30-100)
[2024-12-08 17:08] LABS: CMV Acute Antibody IgM < 30.0 AU/mL (0.0-29.9); EBV Acute VCA IgM < 36.0 U/mL (0.0-35.9); EBV Nuclear Antigen IgG > 600.0 U/mL (0.0-17.9)
== END | disposition home or self-care (01) ==
PROVIDERS: PCP Internal Medicine; Referring Provider Internal Medicine; Visit Provider Internal Medicine
DX: E55.9 Vitamin D deficiency, unspecified (principal); Z13.220 Encounter for screening for lipoid disorders; R53.83 Other fatigue
CPT/HCPCS: 36415; 80053; 80061; 82306; 82607; 84443; 85027; 85652; 86140; 86645; 86664; 86665

== ENCOUNTER → 2025-02-05 | Outpatient (CLI) | payer OTHER, SELFPAY ==
[2025-02-05 15:11] LABS: Hematocrit 37.3 % (37-47); Hemoglobin 12.7 g/dL (12.0-15.0); Immature Granulocytes Count 0.020 X10^3/uL (0.0-0.0); Mean Corp Hgb Conc 34.0 g/dL (32-36); Mean Corpuscular Volume 92.6 fL (81-99); Mean Platelet Vol. 10.1 fl (6.2-12.0); NRBC Flagged by Analyzer 0 % (0-5); Platelet Count 343 K/mm3 (150-450); RBC Distribution Width CV 12.4 % (11.6-14.6); RBC Distribution Width SD 42.4 fl (35.1-43.9); Red Blood Count 4.03 M/mm3 (4.2-5.4); White Blood Count 5.9 K/mm3 (4.4-11.0)
== END | disposition home or self-care (01) ==
LOC: MTLAB 13:06
PROVIDERS: PCP Internal Medicine; Referring Provider Internal Medicine; Visit Provider Internal Medicine
DX: R53.83 Other fatigue (principal)
CPT/HCPCS: 36415; 85025

== ENCOUNTER → 2025-03-23 | Outpatient (CLI) | payer OTHER, SELFPAY ==
--- NOTE | 2025-03-23 08:47 | BI_ITS ---
EXAM: SCRN MAMM (CAD)W/LEISA BILAT DATE: 03/23/2025 CLINICAL HISTORY: F, Age 59 y/o , SCREENING Sister with breast cancer. History of prior right stereotactic breast biopsy. TECHNIQUE: Procedure Code: [id number] Modality: MG Procedure: SCRN MAMM (CAD)W/LEISA BILAT COMPARISON: Prior exam(s) dated prior study dated March 19, 2024.. FINDINGS: TISSUE DENSITY: The breasts are extremely dense, which lowers the sensitivity of mammography. Bilateral Breast Mammographic Findings: No significant masses, calcifications or other abnormalities are identified. A tissue clip marker is seen within a tiny nodule in the deep upper lateral aspect of the right breast. No suspicious masses, areas of developing architectural distortion, or suspicious calcifications. There has been no significant interval change. BI/SCRN MAMM (CAD)W/LEISA BILAT IMPRESSION: Stable bilateral screening mammogram. OVERALL FINAL ASSESSMENT BI-RADS 2: BENIGN RECOMMENDATION: Routine annual follow-up in 1 Year A letter with findings and recommendations will be mailed to the patient. Reading Location: [id number]
== END | disposition home or self-care (01) ==
LOC: OPBI 08:46
PROVIDERS: PCP Internal Medicine; Referring Provider Obstetrics & Gynecology Gynecology; Visit Provider Obstetrics & Gynecology Gynecology
DX: Z12.31 Encounter for screening mammogram for malignant neoplasm of breast (principal); Z80.3 Family history of malignant neoplasm of breast
CPT/HCPCS: 77063; 77067